=== PATIENT | female | born 1930 | race Caucasian/White ===

== ENCOUNTER 2017-04-05 21:41 | Emergency (ER) | payer MEDICARE ==
[~2017-04-05] VITALS: Ht 165.1 cm; Wt 60.0 kg
[~2017-04-05 21:41] MED LIST: ASPI325T PO; ATEN-100 PO; CALA240T PO; ZOFR4TAB3 PO
[2017-04-05 21:50] VITALS: BP 166/71; PULSE 62; RESP 20; TEMP 99.7; O2SAT 97
[2017-04-05] MEDS ORDERED: VERA80TA PO (22:12)
[2017-04-05] MEDS ORDERED: ATEN25TA PO (22:12)
[2017-04-05] MEDS ORDERED: MENE1.254 PO (22:12)
[2017-04-05] MEDS ORDERED: HYDR1CRE TOPICAL (22:14)
--- NOTE | 2017-04-05 22:24 | PD ---
HPI Chief Complaint: Respiratory Symptoms Time Seen by Provider: 22:10 Travel History International Travel<30 days: No Contact w/Intl Traveler<30days: No Traveled to known affect area: No History of Present Illness HPI The patient is an 86-year-old female that has a cough for 3 weeks. She was seen yesterday at the [facility] [place] and a chest x-ray apparently showed pneumonia according to the physician there. She comes with a note to please admit to the hospital for pneumonia. She denies any fever at home but does have a temperature of 99.7 here. She does not smoke. She comes from [place] and has no local primary care physician. PFSH Past Medical History Atrial Fibrillation: Yes Heart Rhythm Problems: Yes (TACHYCARDIA) Diminished Hearing: No Hypertension: Yes ?: Not Menopausal: Yes Past Surgical History Hysterectomy: Yes Other Surgery: Yes (RIGHT WRIST CYST REMOVED) Social History Alcohol Use: No Tobacco Use: No Substance Use: No Allergies-Medications (Allergen,Severity, Reaction): Coded Allergies: Influenza Virus Vaccines (Unverified Allergy, Severe, HIVES, 04/05/17) lansoprazole (Unverified Allergy, Severe, "SHUTS DOWN KINDEYS", 04/05/17) meperidine (Unverified Allergy, Severe, SYNCOPY, 04/05/17) penicillin G (Unverified Allergy, Severe, Anaphylaxis, 04/05/17) tetanus toxoid, adsorbed (Unverified Allergy, Severe, RESP DISTRESS, 04/05) Sulfa (Sulfonamide Antibiotics) (Unverified Allergy, Mild, 04/05/17) erythromycin base (Verified Allergy, Unknown, 04/05/17) morphine (Verified Allergy, Unknown, 04/05/17) nitroglycerin (Verified Allergy, Unknown, 04/05/17) prochlorperazine (Verified Allergy, Unknown, 04/05/17) tetanus immune globulin (Verified Allergy, Unknown, 04/05/17) Uncoded Allergies: EES (Adverse Reaction, Mild, 09/01/14) Reported Meds & Prescriptions Reported Meds & Active Scripts Active Reported Hydrocortisone Topical 1% Cream 1 Applic TOPICAL DIRECTED Menest (Estrogens, Esterified) 1.25 Mg Tab 1.25 Mg PO EVERY OTHER DAY Atenolol 25 Mg Tab 25 Mg PO BID Verapamil (Verapamil HCl) 80 Mg Tab 90 Mg PO TID Review of Systems Except as stated in HPI: all other systems reviewed are Neg Physical Exam Narrative GENERAL: The patient is alert, oriented 3 in no respiratory distress. Her vital signs show temperature of 99.7, blood pressure 166/71 but are otherwise normal. SKIN: Focused skin assessment warm/dry. HEAD: Atraumatic. Normocephalic. EYES: Pupils equal and round. No scleral icterus. No injection or drainage. ENT: No nasal bleeding or discharge. Mucous membranes pink and moist. NECK: Trachea midline. No JVD. CARDIOVASCULAR: Regular rate and rhythm. No murmur appreciated. RESPIRATORY: No accessory muscle use. Clear to auscultation. Breath sounds equal bilaterally. GASTROINTESTINAL: Abdomen soft, non-tender, nondistended. Hepatic and splenic margins not palpable. MUSCULOSKELETAL: No obvious deformities. No clubbing. No cyanosis. No edema. NEUROLOGICAL: Awake and alert. No obvious cranial nerve deficits. Motor grossly within normal limits. Normal speech. PSYCHIATRIC: Appropriate mood and affect; insight and judgment normal. Data Data Last Documented VS Vital Signs Date Time Temp Pulse Resp B/P (MAP) Pulse Ox O2 Delivery O2 Flow Rate FiO2 04/05/17 23:25 71 16 175/80 (111) 96 Room Air 04/05/17 21:50 99.7 Orders Orders Electrocardiogram (04/05/17 22:24) Complete Blood Count With Diff (04/05/17 22:24) Comprehensive Metabolic Panel (04/05/17 22:24) Influenzae A/B Antigen (04/05/17 22:24) Urinalysis - C+S If Indicated (04/05/17 22:24) Blood Culture (04/05/17 22:24) Chest, Pa & Lat (04/05/17 22:24) Sodium Chloride 0.9% Flush (Ns Flush) (04/05/17 22:30) Labs Laboratory Tests Test 04/05/17 22:38 04/05/17 23:17 White Blood Count 17.5 TH/MM3 Red Blood Count 3.87 MIL/MM3 Hemoglobin 11.8 GM/DL Hematocrit 35.7 % Mean Corpuscular Volume 92.1 FL Mean Corpuscular Hemoglobin 30.5 PG Mean Corpuscular Hemoglobin Concent 33.1 % Red Cell Distribution Width 12.5 % Platelet Count 358 TH/MM3 Mean Platelet Volume 7.2 FL Neutrophils (%) (Auto) 81.2 % Lymphocytes (%) (Auto) 7.7 % Monocytes (%) (Auto) 8.2 % Eosinophils (%) (Auto) 0.4 % Basophils (%) (Auto) 2.5 % Neutrophils # (Auto) 14.3 TH/MM3 Lymphocytes # (Auto) 1.3 TH/MM3 Monocytes # (Auto) 1.4 TH/MM3 Eosinophils # (Auto) 0.1 TH/MM3 Basophils # (Auto) 0.4 TH/MM3 CBC Comment AUTO DIFF Differential Comment AUTO DIFF CONFIRMED Platelet Estimate NORMAL Platelet Morphology Comment CLUMPED Red Cell Morphology Comment NORMAL Blood Urea Nitrogen 23 MG/DL Creatinine 1.10 MG/DL Random Glucose 128 MG/DL Total Protein 6.6 GM/DL Albumin 3.0 GM/DL Calcium Level 9.0 MG/DL Alkaline Phosphatase 214 U/L Aspartate Amino Transf (AST/SGOT) 57 U/L Alanine Aminotransferase (ALT/SGPT) 40 U/L Total Bilirubin 0.6 MG/DL Sodium Level 131 MEQ/L Potassium Level 4.2 MEQ/L Chloride Level 96 MEQ/L Carbon Dioxide Level 26.0 MEQ/L Anion Gap 9 MEQ/L Estimat Glomerular Filtration Rate 47 ML/MIN MDM Medical Decision Making Medical Screen Exam Complete: Yes Emergency Medical Condition: Yes Medical Record Reviewed: Yes Interpretation(s) The chest x-ray shows hyperinflation suggesting COPD but no acute infiltrate or effusion. The CBC shows a white count of 17,500 with 81% neutrophils but is otherwise normal. The influenza A/B antigen is negative for flu a and flu B antigen. The complete metabolic profile shows a BUN of 23, creatinine 1.1, GFR 47, albumin 3.0, alkaline phosphatase 214 with GOT of 57 and sodium 131 but is otherwise normal. Differential Diagnosis Pneumonia, bronchitis, viral upper respiratory infection, flu syndrome Narrative Course The patient has had a cough for 3 weeks. She has an elevated white count. I would like to try her on Zithromax. The patient was reluctant to take Zithromax even though she does not know what happens when she takes Zithromax. She even has Zithromax at home which was prescribed to her. She will be given Zithromax 250 mg for 5 days. She does not want a 500 mg or any tablet Zithromax now here in the emergency department. She is to follow-up with a primary care physician. If worse, she should return to emergency department. Diagnosis Primary Impression: Upper respiratory infection Additional Impression: Leukocytosis Med/Other Pt SpecificInfo: Prescription(s) given Scripts Azithromycin (Zithromax) 250 Mg Tab 250 MG PO DAILY for Infection for 5 Days, #5 TAB 0 Refills Prov: Jamshid Lipscomb MD 04/05/17 Disposition: 01 DISCHARGE HOME Condition: Stable Jamshid Lipscomb MD Apr 05, 2017 22:24
[2017-04-05] MEDS ORDERED: SODIUM CHLORIDE 0.9% FLUSH 10 ML FLUSH IVF PRN (22:30)
[2017-04-05 22:56] LABS: AUTOMATED NEUTROPHIL # 14.3 TH/MM3 (1.8-7.7); BASOPHIL # 0.4 TH/MM3 (0-0.2); BASOPHIL % 2.5 % (0.0-2.0); EOSINOPHIL # 0.1 TH/MM3 (0-0.4); EOSINOPHIL % 0.4 % (0.0-4.0); HEMATOCRIT 35.7 % (35.0-46.0); HEMOGLOBIN 11.8 GM/DL (11.6-15.3); LYMPH % 7.7 % (9.0-44.0); LYMPHOCYTE # 1.3 TH/MM3 (1.0-4.8); MEAN CELL VOLUME 92.1 FL (80.0-100.0); MEAN CORPUSCULAR HEMOGLOBIN 30.5 PG (27.0-34.0); MEAN CORPUSCULAR HGB CONC 33.1 % (32.0-36.0); MEAN PLATELET VOLUME 7.2 FL (7.0-11.0); MONO % 8.2 % (0.0-8.0); MONOCYTE # 1.4 TH/MM3 (0-0.9); NEUT % 81.2 % (16.0-70.0); PLATELET COUNT 358 TH/MM3 (150-450); RED BLOOD COUNT 3.87 MIL/MM3 (4.00-5.30); RED CELL DISTRIBUTION WIDTH 12.5 % (11.6-17.2); WHITE BLOOD COUNT 17.5 TH/MM3 (4.0-11.0)
[2017-04-05 23:08] LABS: CHLORIDE 96 MEQ/L (98-107); SODIUM (NA) 131 MEQ/L (136-145)
[2017-04-05 23:12] LABS: BLOOD UREA NITROGEN 23 MG/DL (7-18); GLUCOSE,RANDOM 128 MG/DL (74-106)
--- NOTE | 2017-04-05 23:12 | RADRPT ---
EXAM DATE/TIME: 04/05/2017 22:28 [facility] COMPARISON: No previous studies available for comparison. INDICATIONS : Cough. MEDICAL HISTORY : None. SURGICAL HISTORY : None. ENCOUNTER: Initial ACUITY: 3 weeks PAIN SCORE: 0/10 LOCATION: Bilateral chest FINDINGS: PA and lateral views of the chest demonstrate the lungs to be symmetrically aerated without evidence of mass, infiltrate or effusion. The lungs are hyperinflated bilaterally. Top normal heart size. Osse ous structures are intact. CONCLUSION: 1. Hyperinflation suggesting COPD. No acute infiltrate or effusion. Juan Akers Jr., MD on April 05, 2017 at 23:10 Board Certified Radiologist. This report was verified electronically.
[2017-04-05 23:15] LABS: ALT (GPT) 40 U/L (10-53); AST (GOT) 57 U/L (15-37); GLOMERULAR FILTRATION RATE 47 ML/MIN (>89)
[2017-04-05 23:16] LABS: TOTAL BILIRUBIN ADULT 0.6 MG/DL (0.2-1.0); TOTAL PROTEIN 6.6 GM/DL (6.4-8.2)
[2017-04-05 23:18] LABS: ALKALINE PHOSPHATASE 214 U/L (45-117)
[2017-04-05 23:25] VITALS: BP 175/80; PULSE 71; RESP 16; O2SAT 96
[2017-04-05 23:41] LABS: BLOOD, URINE NEG (NEG); GLUCOSE,URINE NEG (NEG); KETONE, URINE TRACE mg/dL (NEG); NITRITE,URINE NEG (NEG); PH, URINE 5.5 (5.0-8.5); URINE LEUKOCYTE ESTERASE NEG (NEG)
[2017-04-05 23:48] LABS: BILIRUBIN, URINE NEG (NEG)
[2017-04-05 23:49] LABS: HYALINE CAST, URINE 15-19 /lpf (RARE); MUCUS URINE FEW /lpf (OCC); URINE COLOR AMBER (YELLW/STRAW)
[2017-04-05 23:50] LABS: BACTERIA, URINE OCC /hpf; SQUAMOUS EPITHELIAL CELL URINE > 8 /hpf (0-5)
[2017-04-05 23:51] LABS: AMORPHOUS SEDIMENT, URINE SMALL; WBC, URINE 0-2 /hpf (0-5)
[2017-04-05] MEDS ORDERED: ZITH250T PO (23:51)
[2017-04-06 00:26] VITALS: BP 176/79
--- NOTE | 2017-04-06 09:14 | EKG ---
Date Performed: 04/05/2017 Time Performed: 22:32:32 PTAGE: 86 years EKG: SINUS BRADYCARDIA WITH FIRST DEGREE AV BLOCK MARKED LEFT AXIS DEVIATION POSSIBLE RIGHT VENT RICULAR CONDUCTION DELAY LEFT BUNDLE BRANCH BLOCK ABNORMAL ECG NO PREVIOUS TRACING DOCTOR: Elliot Ayala Interpretating Date/Time 04/06/2017 09:14:09
[2017-04-06] MEDS ORDERED: ZOFR4TAB PO (16:30)
== END 2017-04-06 00:30 | disposition home or self-care (01) ==
LOC: PHED 21:41
DX: J06.9 Acute upper respiratory infection, unspecified (principal); D72.829 Elevated white blood cell count, unspecified; R94.31 Abnormal electrocardiogram [ECG] [EKG]; I10 Essential (primary) hypertension; I48.91 Unspecified atrial fibrillation; Z88.0 Allergy status to penicillin
CPT/HCPCS: 71020; 80053; 81001; 85025; 87040; 87804; 93005; 99285

== ENCOUNTER 2017-04-06 15:47 | Emergency (ER) | payer MEDICARE ==
[~2017-04-06] VITALS: Ht 167.6 cm; Wt 60.9 kg
[~2017-04-06 15:47] MED LIST changes: -ASPI325T PO; -ATEN-100 PO; +ATEN25TA PO; -CALA240T PO; +HYDR1CRE TOPICAL; +MENE1.254 PO; +VERA80TA PO; +ZITH250T PO; -ZOFR4TAB3 PO
[2017-04-06 15:51] VITALS: PULSE 60; RESP 18; TEMP 98.4; O2SAT 98
[2017-04-06] MEDS ORDERED: DOXYCYCLINE HYCLATE 50 MG CAP PO ONE (16:15)
[2017-04-06] MEDS ORDERED: ONDANSETRON ODT 4 MG TAB PO ONE (16:15)
--- NOTE | 2017-04-06 16:26 | PD ---
HPI Chief Complaint: Respiratory Symptoms Time Seen by Provider: 16:02 Travel History International Travel<30 days: No Contact w/Intl Traveler<30days: No Traveled to known affect area: No History of Present Illness HPI The patient was seen and examined in the presence of the nurse. This patient complains of cough and congestion. She also has some nausea. She was seen here yesterday and diagnosed with bronchitis. She had a chest x-ray with no infiltrate. Severity is mild to moderate. She is very nervous and anxious. No alleviating factors. She wants a dose of anabiotic medication here to make sure she doesn't react to it. She did not fill the prescription she received yesterday. PFSH Past Medical History Hx Anticoagulant Therapy: Yes (BABY ASA DAILY) Atrial Fibrillation: Yes Heart Rhythm Problems: Yes (TACHYCARDIA) Cardiac Catheterization: Yes Cerebrovascular Accident: Yes (TIA'S HTN) Diabetes: No Diminished Hearing: No Hypertension: Yes Integumentary: Yes (Melanoma ) Immunizations Current: No ?: Not Menopausal: Yes Past Surgical History Appendectomy: Yes Hysterectomy: Yes Other Surgery: Yes (RIGHT WRIST CYST REMOVED) Social History Alcohol Use: No Tobacco Use: No Substance Use: No Allergies-Medications (Allergen,Severity, Reaction): Coded Allergies: Influenza Virus Vaccines (Unverified Allergy, Severe, HIVES, 04/06/17) lansoprazole (Unverified Allergy, Severe, "SHUTS DOWN KINDEYS", 04/06/17) meperidine (Unverified Allergy, Severe, SYNCOPY, 04/06/17) penicillin G (Unverified Allergy, Severe, Anaphylaxis, 04/06/17) tetanus toxoid, adsorbed (Unverified Allergy, Severe, RESP DISTRESS, ) Sulfa (Sulfonamide Antibiotics) (Unverified Allergy, Mild, 04/06/17) erythromycin base (Verified Allergy, Unknown, 04/06/17) morphine (Verified Allergy, Unknown, 04/06/17) nitroglycerin (Verified Allergy, Unknown, 04/06/17) prochlorperazine (Verified Allergy, Unknown, 04/06/17) tetanus immune globulin (Verified Allergy, Unknown, 04/06/17) Uncoded Allergies: EES (Adverse Reaction, Mild, 09/01/14) Reported Meds & Prescriptions Reported Meds & Active Scripts Active Zofran (Ondansetron HCl) 4 Mg Tab 4 Mg PO Q6HR PRN Zithromax (Azithromycin) 250 Mg Tab 250 Mg PO DAILY 5 Days Reported Hydrocortisone Topical 1% Cream 1 Applic TOPICAL DIRECTED Menest (Estrogens, Esterified) 1.25 Mg Tab 1.25 Mg PO EVERY OTHER DAY Atenolol 25 Mg Tab 25 Mg PO BID Verapamil (Verapamil HCl) 80 Mg Tab 90 Mg PO TID Review of Systems General / Constitutional: No: Fever HENT: No: Sore Throat Respiratory: Positive: Cough Gastrointestinal: Positive: Nausea Physical Exam Narrative RESPIRATORY: Respiratory effort unlabored, no retractions or use of accessory muscles. Breath sounds are clear and symmetric. CARDIOVASCULAR: Regular rate and rhythm without murmur. Extremities showed no edema or varicosities. Throat clear NECK: Symmetrical appearance, midline trachea. No mass or crepitus. Thyroid without enlargement, tenderness, or mass. Data Data Last Documented VS Vital Signs Date Time Temp Pulse Resp B/P (MAP) Pulse Ox O2 Delivery O2 Flow Rate FiO2 04/06/17 15:51 98.4 60 18 98 Orders Orders Doxycycline (Vibramycin) (04/06/17 16:15) Ondansetron Odt (Zofran Odt) (04/06/17 16:15) [facility] Medical Decision Making Medical Screen Exam Complete: Yes Emergency Medical Condition: Yes Medical Record Reviewed: Yes Differential Diagnosis Bronchitis, pneumonia, medication side effect Narrative Course I have reviewed the patient's electronic medical record. Reviewed her visit from yesterday including chest x-ray showing COPD changes I gave her dose of Zofran She received a prescription for Zithromax but reports allergy to erythromycin type of medications. To switch her to doxycycline Certainly not clearly is any bacterial involvement however I gave her half dose of doxycycline here at her request and will observe her for a while If she does well we'll prescribe doxycycline for one week and some Zofran Patient says she is allergic to doxycycline also. I don't think she needs antibiotics regardless. I wrote some Zofran prescription and she can discuss with her family physician. Diagnosis Primary Impression: Bronchitis Additional Instructions: The patient was advised to follow up with their physician and return if they worsen. Med/Other Pt SpecificInfo: Prescription(s) given Scripts Ondansetron (Zofran) 4 Mg Tab 4 MG PO Q6HR Y for NAUSEA OR VOMITING, #12 TAB 0 Refills Prov: Lorenzo Verdin MD 04/06/17 Disposition: 01 DISCHARGE HOME Condition: Stable Lorenzo Verdin MD Apr 06, 2017 16:26
[2017-04-06] MEDS ORDERED: ZOFR4TAB PO (16:30)
== END 2017-04-06 17:14 | disposition home or self-care (01) ==
LOC: PHED 15:47
DX: J40 Bronchitis, not specified as acute or chronic (principal); R11.0 Nausea; I10 Essential (primary) hypertension; I48.91 Unspecified atrial fibrillation; R00.0 Tachycardia, unspecified; Z79.82 Long term (current) use of aspirin; Z86.79 Personal history of other diseases of the circulatory system; Z85.828 Personal history of other malignant neoplasm of skin
CPT/HCPCS: 99283

== ENCOUNTER 2017-10-31 09:19 | Inpatient (IN) ==
[2017-10-31] MEDS ORDERED: Sod Chloride 0.9% Inj 1,000 ML IV.CONT SCH (09:30)
--- NOTE | 2017-10-31 09:34 | ED ---
HPI General Chief Complaint: Stroke Alert Stated Complaint: Poss Stroke Alert Time Seen by Provider: 10/31/17 09:22 Source: patient, family and EMS Mode of arrival: EMS Limitations: language barrier and altered mental status History of Present Illness HPI Narrative: 87-year-old female patient with history of atrial fibrillation currently on aspirin, previous TIAs, presents to the ER today brought in by EMS , apparently she was about to have breakfast with her son at around 8:40 AM started getting difficulty speaking, right-sided weakness, and is brought in by EMS as a stroke alert. Patient does complain of a headache, is not able to give me much further history due to the difficulty speaking. Related Data Allergies Allergy/AdvReac Type Severity Reaction Status Date / Time Influenza Virus Vaccines Allergy Severe HIVES Unverified 10/31/17 10:27 lansoprazole Allergy Severe "SHUTS Unverified 10/31/17 10:27 DOWN KINDEYS" meperidine Allergy Severe SYNCOPY Unverified 10/31/17 10:27 penicillin G Allergy Severe Anaphylaxis Unverified 10/31/17 10:27 tetanus toxoid, adsorbed Allergy Severe RESP Unverified 10/31/17 10:27 DISTRESS Sulfa (Sulfonamide Allergy Mild Nausea Unverified 10/31/17 10:27 Antibiotics) erythromycin base Allergy Unknown Nausea Verified 10/31/17 10:27 morphine Allergy Unknown Nausea Verified 10/31/17 10:27 nitroglycerin Allergy Unknown Nausea Verified 10/31/17 10:27 prochlorperazine Allergy Unknown Nausea Verified 10/31/17 10:27 tetanus immune globulin Allergy Unknown Nausea Verified 10/31/17 10:27 EES AdvReac Mild Nausea Uncoded 10/31/17 10:27 Review of Systems ROS Unobtainable unobtainable due to mental status PMFSH History History Provided By: Family Member and Sign Writer Hand / EMT Medical History Medical History Afib (Acute) TIA (transient ischemic attack) (Acute) Social History Social History Recent Travel in [facility] within the Last 8 Weeks: No Recent Out of Country Travel within the Last 8 Weeks: No Exam Narrative Exam Narrative: GENERAL: Well-developed elderly white female patient currently and moderate distress. Awake and alert, but aphasic, having difficulty speaking , follows some commands. SKIN: Focused skin assessment warm/dry. HEAD: Atraumatic. Normocephalic. EYES: Pupils equal and round. No scleral icterus. No injection or drainage. ENT: No nasal bleeding or discharge. Mucous membranes pink and moist. NECK: Trachea midline. No JVD. CARDIOVASCULAR: Irregularly irregular. RESPIRATORY: No accessory muscle use. Clear to auscultation. Breath sounds equal bilaterally. GASTROINTESTINAL: Abdomen soft, non-tender, nondistended. Hepatic and splenic margins not palpable. MUSCULOSKELETAL: No obvious deformities. No clubbing. No cyanosis. No edema. NEUROLOGICAL: Awake and alert. Right facial droop, unable to lift the right hand or right leg. PSYCHIATRIC: Appropriate mood and affect; insight and judgment normal. Course Hospital Course: CAT scan was negative for intracranial bleed. Case was discussed with Dr. Lozoya who came in to see the patient in the ER, talked to the patient's son, and agrees that the patient should be a TPA candidate. TPA was initiated in the ER. Patient's blood pressure was quite elevated as well on arrival and Cardene drip had been initiated to lower the blood pressure, I came down nicely and she was a candidate for TPA. Case was then discussed with Dr. Recio for admission to the critical care unit due to TPA. Initial Documented Vital Signs Pulse Rate 87 10/31/17 09:19 Respiratory Rate 20 10/31/17 09:19 Blood Pressure 227/106 H 10/31/17 09:19 Pulse Oximetry 98 10/31/17 09:19 Last Documented Vital Signs Pulse Rate 87 10/31/17 09:19 Respiratory Rate 18 10/31/17 09:19 Blood Pressure 131/60 10/31/17 10:26 Pulse Oximetry 96 10/31/17 10:40 Critical Care Time Critical Care Time: Yes Total Critical Care Time: 30 Attestation: Aggregate critical care time was 30 minutes. Time to perform other separately billable procedures was not included in the critical care time. My time did not include minutes spent treating any other patients simultaneously or on activities that did not directly contribute to the patient's treatment. The services I provided to this patient were to treat and/or prevent clinically significant deterioration that could result in: ICH, worsening stroke, , disability I provided critical care services requiring my management, as noted below: Chart data review, documentation time, medication orders and management, vital sign assessments/reviewing monitor data, ordering and reviewing lab tests, ordering and interpreting/reviewing x-rays and diagnostic studies, care of the patient and discussion of the patient with the admitting physicians. Medical Decision Making Differential Diagnosis Differential Diagnosis: Acute CVA versus ICH versus hypertensive emergency Lab Data Result diagrams: 10/31/17 09:44 10/31/17 09:25 Lab Results 10/31/17 10/31/17 10/31/17 Range/Units 09:25 09:25 09:25 WBC (4.0-11.0) th/mm3 RBC (4.00-5.30) mil/mm3 Hgb (11.6-15.3) gm/dL POC Hgb (Calc) 14.6 (11.6-15.3) g/dL Hct (35.0-46.0) % POC Hct 43.0 (35-46.0) % MCV (80.0-100.0) fL MCH (27.0-34.0) pg MCHC (32.0-36.0) % RDW (11.6-17.2) % Plt Count (150-450) th/mm3 MPV (7.0-11.0) fL Neut % (Auto) (16.0-70.0) % Lymph % (Auto) (9.0-44.0) % [place] % (Auto) (0.0-8.0) % Eos % (Auto) (0.0-4.0) % Baso % (Auto) (0.0-2.0) % Neut # (Auto) (1.8-7.7) th/mm3 Lymph # (Auto) (1.0-4.8) th/mm3 [place] # (Auto) (0.0-0.9) th/mm3 Eos # (Auto) (0.0-0.4) th/mm3 Baso # (Auto) (0.0-0.2) th/mm3 WBC Differential Differential Comment PT 10.6 (9.8-11.6) sec INR 1.0 Ratio APTT 25.3 (24.3-30.1) sec POC Sodium 136 L (137-144) mmol/L Sodium 138 (136-145) meq/L POC Potassium 4.3 (3.6-5.0) mmol/L Potassium 4.3 (3.5-5.1) meq/L POC Chloride 101 L (102-111) mmol/L Chloride 104 (98-107) meq/L Carbon Dioxide 27.1 (21.0-32.0) meq/L Anion Gap 7 (5-15) meq/L POC BUN 14 (5-21) mg/dL BUN 14 (7-18) mg/dL Creatinine 0.94 (0.50-1.00) mg/dL POC Creatinine 0.9 (0.6-1.3) mg/dL Estimated GFR 56 L (>89) mL/min POC Glucose 118 H (68-110) mg/dL Random Glucose 120 H (74-106) mg/dL Calcium 9.0 (8.5-10.1) mg/dL Total Creatine Kinase 38 (26-192) U/L Troponin I 0.08 H (0.02-0.05) ng/mL 10/31/17 Range/Units 09:44 WBC 9.5 (4.0-11.0) th/mm3 RBC 4.39 (4.00-5.30) mil/mm3 Hgb 14.7 (11.6-15.3) gm/dL POC Hgb (Calc) (11.6-15.3) g/dL Hct 41.1 (35.0-46.0) % POC Hct (35-46.0) % MCV 93.6 (80.0-100.0) fL MCH 33.5 (27.0-34.0) pg MCHC 35.7 (32.0-36.0) % RDW 14.0 (11.6-17.2) % Plt Count 311 (150-450) th/mm3 MPV 7.0 (7.0-11.0) fL Neut % (Auto) 72.9 H (16.0-70.0) % Lymph % (Auto) 19.1 (9.0-44.0) % [place] % (Auto) 5.1 (0.0-8.0) % Eos % (Auto) 2.1 (0.0-4.0) % Baso % (Auto) 0.8 (0.0-2.0) % Neut # (Auto) 6.9 (1.8-7.7) th/mm3 Lymph # (Auto) 1.8 (1.0-4.8) th/mm3 [place] # (Auto) 0.5 (0.0-0.9) th/mm3 Eos # (Auto) 0.2 (0.0-0.4) th/mm3 Baso # (Auto) 0.1 (0.0-0.2) th/mm3 WBC Differential . Differential Comment Auto diff final PT (9.8-11.6) sec INR Ratio APTT (24.3-30.1) sec POC Sodium (137-144) mmol/L Sodium (136-145) meq/L POC Potassium (3.6-5.0) mmol/L Potassium (3.5-5.1) meq/L POC Chloride (102-111) mmol/L Chloride (98-107) meq/L Carbon Dioxide (21.0-32.0) meq/L Anion Gap (5-15) meq/L POC BUN (5-21) mg/dL BUN (7-18) mg/dL Creatinine (0.50-1.00) mg/dL POC Creatinine (0.6-1.3) mg/dL Estimated GFR (>89) mL/min POC Glucose (68-110) mg/dL Random Glucose (74-106) mg/dL Calcium (8.5-10.1) mg/dL Total Creatine Kinase (26-192) U/L Troponin I (0.02-0.05) ng/mL Imaging Data Radiologist's impression: Chest X-Ray 10/31/17 09:22 CONCLUSION: No acute cardiopulmonary disease. Head CT 10/31/17 09:22 CONCLUSION: Chronic small vessel ischemic and atrophic changes. Report was called by myself to Dr. Bautista Lozoya at 9:38 hours.] Neck CTA 10/31/17 09:22 CONCLUSION: 1. Significant atherosclerotic plaquing involving the aorta and origin of bilateral internal carotid arteries with soft plaque involving the origin of the left internal coronary artery and no significant stenosis. Discharge Plan Discharge Disposition Patient Disposition: 30 Still Patient Discharge Condition Condition: Critical Discharge Details Anticipated Discharge Date: 10/31/17 Diagnosis: Acute ischemic stroke, Received intravenous tissue plasminogen activator (t-PA ) in emergency department Physicians Team ED Provider: Allen Tapia Primary Care Provider: UNKNOWN, Discharge Interventions Interventions: Vital Signs Last Done: 10/31/17 10:26 Status ED Status: With Doctor
[2017-10-31] MEDS: niCARdipine Inj 25 MG in Sodium Chlor 0.9% Inj 240 ML IV.CONT PRN ×5 (09:37→22:37)
--- NOTE | 2017-10-31 09:44 | CT ---
EXAM DATE: 10/31/2017 9:39 AM EDT AGE/SEX: 87 years / Female INDICATIONS: Stroke alert; right side weakness, altered mental status. CLINICAL DATA: This is the patient's initial encounter. Patient reports that signs and symptoms have been present for 1 day and indicates a pain score of Nonresponsive. MEDICAL/SURGICAL HISTORY: Non-responsive. Non-responsive. RADIATION DOSE: 56.35 CTDI (mGy) COMPARISON: No prior exams available for comparison. TECHNIQUE: CT of the head without contrast. Using automated exposure control and adjustment of the mA and/or kV according to patient size, radiation dose was kept as low as reasonably achievable to ob tain optimal diagnostic quality images. DICOM format image data is available electronically for revi ew and comparison. FINDINGS: There is no evidence for intracranial hemorrhage, mass effect, mass lesions, or edema. The visualize d bony structures appear intact. Moderate degree of brain atrophy is seen. Moderate periventricular white matter changes are seen nonspecific mostly consistent with chronic small vessel ischemic change s. There are no signs of acute infarction for technique. There is an area of lucency in the right po sterior parietal lobe probably an old area of encephalomalacia. Underlying mass is not suspected at t his site, however not completely excluded. There is also old lacunar infarction in left mesial tempor al lobe versus prominent Virchow-Shahram space. CONCLUSION: Chronic small vessel ischemic and atrophic changes. Report was called by myself to Dr. Bautista Lozoya at 9:38 hours.] Electronically signed by: Bing Dinero MD 10/31/2017 9:42 AM EDT
[2017-10-31 09:47] LABS: Baso # (Auto) 0.1 th/mm3 (0.0-0.2); Baso % (Auto) 0.8 % (0.0-2.0); Eos # (Auto) 0.2 th/mm3 (0.0-0.4); Eos % (Auto) 2.1 % (0.0-4.0); Hematocrit 41.1 % (35.0-46.0); Hemoglobin 14.7 gm/dL (11.6-15.3); Lymph # (Auto) 1.8 th/mm3 (1.0-4.8); Lymph % (Auto) 19.1 % (9.0-44.0); Mean Corpuscular HGB Conc 35.7 % (32.0-36.0); Mean Corpuscular Hemoglobin 33.5 pg (27.0-34.0); Mean Corpuscular Volume 93.6 fL (80.0-100.0); Mono # (Auto) 0.5 th/mm3 (0.0-0.9); Mono % (Auto) 5.1 % (0.0-8.0); Neut # (Auto) 6.9 th/mm3 (1.8-7.7); Neut % (Auto) 72.9 % (16.0-70.0); Platelet Count 311 th/mm3 (150-450); Red Blood Count 4.39 mil/mm3 (4.00-5.30); White Blood Count 9.5 th/mm3 (4.0-11.0)
[2017-10-31 09:52] LABS: Activated Partial Thrombo Time 25.3 sec (24.3-30.1); Prothrombin Time 10.6 sec (9.8-11.6)
[2017-10-31] MEDS ORDERED: ALTEPLASE DRIP IV.SIG ONE (09:53)
[2017-10-31] MEDS ORDERED: Alteplase Bolus 9 MG/9 ML Syringe IV.PUSH ONE (09:53)
[2017-10-31 09:56] LABS: Carbon Dioxide 27.1 meq/L (21.0-32.0); Potassium 4.3 meq/L (3.5-5.1)
[2017-10-31 10:00] LABS: Troponin I 0.08 ng/mL (0.02-0.05)
--- NOTE | 2017-10-31 10:01 | CT ---
EXAM DATE: 10/31/2017 9:52 AM EDT AGE/SEX: 87 years / Female INDICATIONS: Stroke alert; right side weakness and altered mental status. CLINICAL DATA: This is the patient's initial encounter. Patient reports that signs and symptoms have been present for 1 day and indicates a pain score of Nonresponsive. MEDICAL/SURGICAL HISTORY: Non-responsive. Non-responsive. RADIATION DOSE: 8.83 CTDI (mGy) ; Combined studies COMPARISON: [facility] [place] HEAD W/O CONTRAST, 10/31/2017. . TECHNIQUE: Volumetric scanning was performed using a multi-row detector CT scanner during bolus infu susan of 100 ml Omnipaque 350 (iohexol) nonionic water-soluble contrast as a cumulative dose for [facility] [place] exams. The data was post processed with a variety of visualization algorithms including full v olume maximum intensity projection, multi-planar sliding thin slab reformation, curved planar reforma tion, and surface rendering techniques. Using automated exposure control and adjustment of the mA an d/or kV according to patient size, radiation dose was kept as low as reasonably achievable to obtain optimal diagnostic quality images. DICOM format image data is available electronically for review an d comparison. FINDINGS: There are chronic atherosclerotic changes involving multiple branches bilaterally including posterior circulation. There is no evidence for aneurysm or vascular malformation. No definite vessel truncati on or filling defect is seen. The area of encephalomalacia seen on the patient's CT examination in ri t posterior parietal lobe does not demonstrate any abnormal enhancement based on this examination p robable old encephalomalacia. Conclusion:Chronic atherosclerotic disease without evidence of truncation or definite filling defects . Electronically signed by: Bing Dinero MD 10/31/2017 10:00 AM EDT
--- NOTE | 2017-10-31 10:11 | MB ---
cc: Bautista Lozoya MD DATE: 10/31/2017 HISTORY OF PRESENT ILLNESS: This is an 86-year-old woman with a history of tachycardia, TIA, hypertension, melanoma, apparently fibrillation according to the ER doctor. She takes an aspirin a day and about 8:30 this morning, she was sitting, eating with her son when the history we get is that she suddenly could not talk and not moving the right side. MEDICATIONS: In the past she has been on estrogen, atenolol, verapamil. ALLERGIES: LANSOPRAZOLE, MEPERIDINE, PENICILLIN, SULFA, ERYTHROMYCIN, MORPHINE, PROCHLORPERAZINE, NITROGLYCERIN. PHYSICAL EXAMINATION: VITAL SIGNS: Initially her blood pressure was elevated, 238/118 now. NECK: There are no carotid bruits. HEART: Regular rhythm. I did not detect a murmur. NEUROLOGIC: She appears not to see well to the right. She has got a right facial droop. She is moving the left side well, but the right side she is 0/5. Toes are equivocal. She can mumble and moan ,but not speaking. IMAGING STUDIES: CAT scan shows some bilateral old basal ganglionic infarcts and what appears to be probably an old stroke in the right parieto-occipital region, though I cannot say for sure if it could not be a mass. Await the official results from the radiologist. We could do a CT with contrast of the brain I guess. We will see that as we go through the CTA maybe to see if that is a tumor or an old stroke; that would be the question. 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 RECOMMENDATIONS: What I have recommended is to give IV TPA. I did talk with Dr. Dinero about the results of the CT and he does not feel that the right parietal region is a tumor, he thinks more of an old stroke. A CTA is being done currently. We will try to get the blood pressure down immediately. Bautista Lozoya MD DJM/KD , 09:42 AM , 09:49 AM
--- NOTE | 2017-10-31 10:17 | CT ---
EXAM DATE: 10/31/2017 10:08 AM EDT AGE/SEX: 87 years / Female INDICATIONS: Stroke alert; right sided weakness, altered mental status. CLINICAL DATA: This is the patient's initial encounter. Patient reports that signs and symptoms have been present for 1 day and indicates a pain score of Nonresponsive. MEDICAL/SURGICAL HISTORY: Non-responsive. Non-responsive. RADIATION DOSE: 8.83 CTDI (mGy) ; Combined studies COMPARISON: No prior exams available for comparison. TECHNIQUE: Volumetric scanning was performed using a multirow detector CT scanner during bolus infus ion of 100 ml Omnipaque 350 (iohexol) nonionic water-soluble contrast as a cumulative dose for multi ple exams. The data was postprocessed with a variety of visualization algorithms including full-vol ume maximum intensity projection, multiplanar sliding thin-slab reformation, curved-planar reformatio n, and surface-rendering techniques. Using automated exposure control and adjustment of the mA and/o r kV according to patient size, radiation dose was kept as low as reasonably achievable to obtain opt imal diagnostic quality images. DICOM format image data is available electronically for review and c omparison. Percent stenosis is calculated using the diameter of the stenotic region over the diameter of the nor mal distal internal carotid artery. FINDINGS: There is extensive atherosclerotic plaquing at the origin of the major vessels from the arch. No sign ificant stenosis is identified. There is extensive extrinsic plaquing involving the origin of the rig ht internal carotid artery extending to proximal ICA without any significant stenosis and maximum swati nosis is on the order of 25-30%. There is also moderate degree of atherosclerotic plaquing involving the left ICA with soft plaque at this site and no significant stenosis. Maximum area of narrowing is on the order of 20-25%. CONCLUSION: 1. Significant atherosclerotic plaquing involving the aorta and origin of bilateral internal carotid arteries with soft plaque involving the origin of the left internal coronary artery and no significa nt stenosis. Electronically signed by: Bing Dinero MD 10/31/2017 10:16 AM EDT
--- NOTE | 2017-10-31 10:20 | XR ---
EXAM DATE: 10/31/2017 10:06 AM EDT AGE/SEX: 87 years / Female INDICATIONS: Stroke Alert CLINICAL DATA: This is the patient's initial encounter. Patient reports that signs and symptoms have been present for 1 day and indicates a pain score of Nonresponsive. MEDICAL/SURGICAL HISTORY: Non-responsive. Non-responsive. COMPARISON: [facility], CHEST PA & LAT, 04/05/2017. . FINDINGS: The lungs are clear without infiltrate, nodule, or mass. There is no appreciable pleural effusion for technique. Heart and mediastinum are unremarkable. CONCLUSION: No acute cardiopulmonary disease. Electronically signed by: Bing Dinero MD 10/31/2017 10:19 AM EDT
[2017-10-31] MEDS ORDERED: Acetaminophen 325 MG Tablet PO PRN (10:47)
[2017-10-31] MEDS ORDERED: Bisacodyl 10 MG Supp RECTAL PRN (10:47)
[2017-10-31] MEDS: Sod Chloride 0.9% Inj 1,000 ML IV.CONT SCH (11:11)
[2017-10-31 11:13] LABS: Bilirubin,Urine Negative (Negative); Clarity,Urine Clear (Clear); Color,Urine Yellow (Yellw/Straw); Glucose,Urine (UA) Negative (Negative); Leukocyte Esterase,Urine Negative (Negative); Nitrite,Urine Negative (Negative); Specific Gravity,Urine 1.049 (1.002-1.035); Squamous Epithelial Cell,Urine <1 /hpf (0-5)
--- NOTE | 2017-10-31 13:25 | MB ---
cc: Bautista Lozoya MD DATE: 10/31/2017 ADDENDUM Her current NIH stroke scale is an 18. A CTA, preliminary, did not show any major vessel occlusion. Bautista Shetty. MD AYANA Lozoya/kajal/ramonita , 09:49 AM , 09:54 AM
--- NOTE | 2017-10-31 13:48 | P.HPCC ---
History of Present Illness Primary Care Physician: UNKNOWN Chief Complaint: Slurred speech, weak right side History of Present Illness: This otherwise healthy 87-year-old woman developed difficulty with speech and a weak right side while eating breakfast this morning. She was brought to the emergency department where she ruled in as a stroke alert and after evaluation by Dr. Lozoya from neurology she received TPA. In the emergency department her right sided deficit was quite dense and her speech difficulties were pronounced. Both difficulties improved modestly at first and at that point she has been transported to the [facility]. Blood pressure control has been obtained with intravenous Cardene infusion. She developed some gastric retching and a worse headache, MRI and repeat CT indicate an area of possible bleeding posteriorly in the parietal region however the woman remains clearly improved from prior to the TPA. Her speech and administrative receptionist are near normal, hampered only by her difficulty hearing. She has a good sense of humor and asks appropriate questions. She can raise her right arm above gravity but the hand grasp remains weak. The patient has expressed quite clearly to me that she would not want any therapy that would involve ventilators or surgery. Although she is doing well at this time she would like us to continue full care but she prefers to be DNR status. - Diagnosis (1) Hypertensive crisis (2) Atrial fibrillation, permanent (3) Acute ischemic stroke (4) Received intravenous tissue plasminogen activator (t-PA) in emergency department Inpatient Certification: I certify that the inpatient services were ordered in accordance with Medicare regulations governing the order. This includes certification that hospital inpatient services are reasonable and necessary and in the case of services not specified as inpatient-only under 42 CFR 419.22(n), that they are appropriately provided as inpatient services in accordance to with the 2-midnight benchmark under 43 CFR 412.3(e) Estimated Total Length of Stay (Days): 3 Plans for Post Hospital Care: Not yet determined PMFSH - History History Provided By: Family Member - Medical History Medical History: Medical History (Last Reviewed 10/31/17 @ 14:43 by Elma Mcmahan) Afib Brain aneurysm Heart murmur Hypertension Stroke TIA (transient ischemic attack) - Tobacco History Second Hand Smoke Exposure: No Tobacco Use In Past 30 Days: No Smoking Status: Never smoker Tobacco Type: Cigarettes - Alcohol History How Often Do You Have a Drink Containing Alcohol: Never - Substance Use History Substance History: No History of Abuse - Travel History Recent Travel in the [place] Within the Last 8 Weeks: No Recent Travel Out of the Country Within the Last 8 Weeks: No - Immunization History Hx Influenza Vaccine This Season: No Medications and Allergies Active Medications: Active Medications Acetaminophen (Tylenol) 650 mg PO Q6H PRN PRN Reason: PAIN 1-10 AND/OR FEVER >101F Al Hydroxide/Mg Hydroxide (Milk Of Magnesia Liq) 30 ml PO Q12H PRN PRN Reason: Mild Constipation Bisacodyl (Dulcolax Supp) 10 mg RECTAL DAILY PRN PRN Reason: SEVERE CONSITIPATION Chlorhexidine Gluconate (Chlorhexidine 2% Cloth) 3 pack TOPICAL DAILY@0400 ARTUR Stop: 11/06/17 03:59 Chlorhexidine Gluconate (Chlorhexidine 2% Cloth) 3 pack TOPICAL DAILY@0400 PRN PRN Reason: Extra cloth needed Stop: 11/06/17 03:59 Famotidine (Pepcid) 10 mg PO BID [facility] Nicardipine HCl 25 mg/ Sodium (Chloride) 250 mls @ 50 mls/hr IV.CONT TITRATE PRN; Protocol PRN Reason: Per Protocol Last Titration: 10/31/17 12:45 Dose: 5 mg/hr, 50 mls/hr Sodium Chloride (Ns Inj) 1,000 mls @ 84 mls/hr IV.CONT .[id number] [facility] Last Admin: 10/31/17 11:11 Dose: 84 mls/hr Lactulose (Lactulose Liq) 30 ml PO DAILY PRN PRN Reason: SEVERE CONSITIPATION Miscellaneous (Pill Splitter) 1 each OTHER UNSCH PRN PRN Reason: SEE LABEL COMMENTS Ondansetron HCl (Zofran Odt) 4 mg PO Q6H PRN PRN Reason: NAUSEA OR VOMITING Senna/Docusate Sodium (Juany-Colace) 1 tab PO BID [facility] Sennosides (Senokot) 17.2 mg PO Q12H PRN PRN Reason: Moderate Constipation Sodium Chloride (Ns Flush) 2 ml IV.FLUSH BID [facility] Sodium Chloride (Ns Flush) 2 ml IV.FLUSH UNSCH PRN PRN Reason: FLUSH AFTER USING IV ACCESS Allergies Allergy/AdvReac Type Severity Reaction Status Date / Time Influenza Virus Vaccines Allergy Severe HIVES Unverified 10/31/17 10:27 lansoprazole Allergy Severe "SHUTS Unverified 10/31/17 10:27 DOWN KINDEYS" meperidine Allergy Severe SYNCOPY Unverified 10/31/17 10:27 penicillin G Allergy Severe Anaphylaxis Unverified 10/31/17 10:27 tetanus toxoid, adsorbed Allergy Severe RESP Unverified 10/31/17 10:27 DISTRESS Sulfa (Sulfonamide Allergy Mild Nausea Unverified 10/31/17 10:27 Antibiotics) erythromycin base Allergy Unknown Nausea Verified 10/31/17 10:27 morphine Allergy Unknown Nausea Verified 10/31/17 10:27 nitroglycerin Allergy Unknown Nausea Verified 10/31/17 10:27 prochlorperazine Allergy Unknown Nausea Verified 10/31/17 10:27 tetanus immune globulin Allergy Unknown Nausea Verified 10/31/17 10:27 EES AdvReac Mild Nausea Uncoded 10/31/17 10:27 Results - Labs CBC & Chem 7: 10/31/17 09:44 10/31/17 09:25 Labs: Short CBC 10/31/17 Range/Units 09:44 WBC 9.5 (4.0-11.0) th/mm3 Hgb 14.7 (11.6-15.3) gm/dL Hct 41.1 (35.0-46.0) % Plt Count 311 (150-450) th/mm3 BMP 10/31/17 09:25 Sodium 138 Potassium 4.3 Chloride 104 Carbon Dioxide 27.1 BUN 14 Creatinine 0.94 Calcium 9.0 Cardiac Enzymes 10/31/17 Range/Units 09:25 Total Creatine Kinase 38 (26-192) U/L Troponin I 0.08 H (0.02-0.05) ng/mL Urine 10/31/17 Range/Units 10:08 Urine Color Yellow (Yellw/Straw) Urine Clarity Clear (Clear) Urine pH 7.0 (5.0-8.5) Ur Specific [place] 1.049 H (1.002-1.035) Urine Protein Negative (Neg-Trace) mg/dL Urine Glucose (UA) Negative (Negative) mg/dL - Imaging Impressions Chest X-Ray 10/31/17 09:22 CONCLUSION: No acute cardiopulmonary disease. Head CT 10/31/17 09:22 CONCLUSION: Chronic small vessel ischemic and atrophic changes. Report was called by myself to Dr. Bautista Lozoya at 9:38 hours.] Neck CTA 10/31/17 09:22 CONCLUSION: 1. Significant atherosclerotic plaquing involving the aorta and origin of bilateral internal carotid arteries with soft plaque involving the origin of the left internal coronary artery and no significant stenosis. Exam Vital signs: Vital Signs 10/31/17 09:19 10/31/17 09:28 10/31/17 09:35 Pulse Rate 87 Respiratory Rate 18 Blood Pressure 227/106 H 238/118 H Pulse Oximetry 98 98 10/31/17 09:39 10/31/17 10:11 10/31/17 10:26 Pulse Rate Respiratory Rate Blood Pressure 227/103 H 169/68 H 131/60 Pulse Oximetry 10/31/17 10:40 10/31/17 10:59 Pulse Rate 74 Respiratory Rate 18 Blood Pressure 169/81 H Pulse Oximetry 96 98 Intake & Output 10/30/17 10/31/17 10/31/17 18:59 06:59 18:59 Intake Total 100 / 100 Balance 100 / 100 Weight 62.3 kg Intake: IV 100 / 100 Cardene Inj 25 MG In NS Inj 240 100 / 100 ML @ 5 MG/HR 50 mls/hr IV.CONT TITRATE PRN Rx#:[id number] Other: Weight On Admission 62.3 kg Narrative: Physical: Head: Atraumatic and normal. Neck: Supple, airway widely patent, no problems swallowing secretions. Lungs: Clear bilaterally without wheezes or crackles, comfortable respiratory pattern. Heart: Irregular regular rhythm rate controlled no jugular venous distention. Abdomen: Soft, nondistended, no guarding, bowel sounds present. Extremities: Warm, well-perfused Neuro: Pupils reactive to light. Patient tracks with eyes. Right arm and leg considerably reduced motor strength. Expressive aphasia. Caprini VTE Risk Assessment Caprini VTE Risk Assessment: Moderate/High Risk (score >= 2) VTE Pharmacological Exception Reason: High risk for bleeding Caprini Risk Assessment Model: Point Value = 1 Point Value = 2 Point Value = 3 Point Value = 5 Age 41-60 Minor surgery BMI > 25 kg/m2 Swollen legs Varicose veins or History of unexplained or recurrent spontaneous Oral contraceptives or hormone replacement Sepsis (< 1 month) Serious lung disease, including pneumonia (< 1 month) Abnormal pulmonary function Acute myocardial infarction Congestive heart failure (< 1 month) History of inflammatory bowel disease Medical patient at bed rest Age 61-74 Arthroscopic surgery Major open surgery (> 45 min) Laparoscopic surgery (> 45 min) Malignancy Confined to bed (> 72 hours) Immobilizing plaster cast Central venous access Age >= 75 History of VTE Family history of VTE Factor V Leiden Prothrombin [id number] Lupus anticoagulant Anticardiolipin antibodies Elevated serum homocysteine Heparin-induced thrombocytopenia Other congenital or acquired thrombophilia Stroke (< 1 month) Elective arthroplasty Hip, pelvis, or leg fracture Acute spinal cord injury (< 1 month) Prophylaxis Regimen: Total Risk Factor Score Risk Level Prophylaxis Regimen 0-1 Low Early ambulation 2 Moderate Order ONE of the following: *Sequential Compression Device (SCD) *Heparin 5000 units SQ BID 3-4 Higher Order ONE of the following medications: *Heparin 5000 units SQ TID *Enoxaparin/Lovenox 40 mg SQ daily (WT < 150 kg, CrCl > 30 mL/min) *Enoxaparin/Lovenox 30 mg SQ daily (WT < 150 kg, CrCl > 10-29 mL/min) *Enoxaparin/Lovenox 30 mg SQ BID (WT < 150 kg, CrCl > 30 mL/min) AND/OR *Sequential Compression Device (SCD) 5 or more Highest Order ONE of the following medications: *Heparin 5000 units SQ TID (Preferred with Epidurals) *Enoxaparin/Lovenox 40 mg SQ daily (WT < 150 kg, CrCl > 30 mL/min) *Enoxaparin/Lovenox 30 mg SQ daily (WT < 150 kg, CrCl > 10-29 mL/min) *Enoxaparin/Lovenox 30 mg SQ BID (WT < 150 kg, CrCl > 30 mL/min) AND *Sequential Compression Device (SCD) Assessment and Plan - Problem List (1) Hypertensive crisis Code(s): I16.9 - Hypertensive crisis, unspecified Status: Acute (2) Atrial fibrillation, permanent Code(s): I48.2 - Chronic atrial fibrillation Status: Acute (3) Acute ischemic stroke Code(s): I63.9 - Cerebral infarction, unspecified Status: Acute (4) Received intravenous tissue plasminogen activator (t-PA) in emergency department Code(s): Z92.82 - Status post administration of tPA (rtPA) in a different facility within the last 24 hours prior to admission to current facility Status: Acute - Assessment and Plan Plan: Plan: -TPA order set. -Maintain arterial blood pressure less than 140/90. -Bedrest. -Bedside swallow evaluation. -PT and OT evaluation and treatment -Cardene infusion to maintain blood pressure, convert to oral medication -Repeat head CT after 24 hours or sooner for any neuro -SCDs for DVT prophylaxis. -Pepcid for GI ulcer prophylaxis. -Neurochecks. Overall impression: This woman has developed an acute ischemic stroke involving the left hemisphere. She has improved modestly after TPA infusion. It is early yet and we anticipate further improvement. She has stable respiratory function and her hemodynamics are good, well controlled on Cardene infusion. H&P: Quality - VTE Deep Vein Thrombosis/Pulmonary Embolism Present on Admission: No
--- NOTE | 2017-10-31 14:48 | MR ---
EXAM DATE: 10/31/2017 2:26 PM EDT AGE/SEX: 87 years / Female INDICATIONS: Right sided weakness. CLINICAL DATA: This is the patient's initial encounter. Patient reports that signs and symptoms have been present for 1 day and indicates a pain score of 0/10. MEDICAL/SURGICAL HISTORY: Hypertension. Aneurysm, intracranial. CVA. None. COMPARISON: No prior exams available for comparison. TECHNIQUE: Multiplanar, multisequence examination of the brain was performed without and with 6 ml Ga davist (gadobutrol) contrast as a single exam dose. FINDINGS: There is an area of abnormal bright signal on T2 sequence involving the right frontal lobe and right posterior parietal lobe. There is gyral enhancement on the postcontrast portion of both of these area s without a definable mass. There is bright signal on the diffusion portion and part of it is due to shine through, however part of it demonstrates restriction in diffusion capacity probably representin g possibly acute infarction as well in the right posterior parietal region. The appearance is mostly consistent with subacute infarction with luxury perfusion and laminar necrosis possibly superimposed acute infarction. On the gradient sequence there are areas of dark signal may represent hemorrhage in the region of the right posterior frontal lobe has some scattered areas in left posterior temporal a nd right periventricular parietal regions. CONCLUSION: 1. Findings are mostly consistent with subacute laminar necrosis of right frontal lobe and posterior parietal lobe with possible areas of superimposed acute infarction in the right posterior parietal l obe manifested as restriction diffusion capacity. 2. Tiny enhancing nodule right periventricular region 4 mm in size possibly an area of subacute lacu murray infarction and should be followed. 3. Possibility of hemorrhage should be entertained as described above particularly in the right post erior parietal infarction. Findings were discussed with Dr. Lozoya at the time of this dictation. Electronically signed by: Bing Dinero MD 10/31/2017 2:47 PM EDT
[2017-10-31] MEDS ORDERED: Gadobutrol PF 7.5 MMOL/7.5 ML Vial (for RAD) IV.SIG ONE (14:52)
--- NOTE | 2017-10-31 17:04 | CT ---
EXAM DATE: 10/31/2017 4:22 PM EDT AGE/SEX: 87 years / Female INDICATIONS: Abnormal MRI. Status post TPA. CLINICAL DATA: This is the patient's initial encounter. Patient reports that signs and symptoms have been present for 1 day and indicates a pain score of Nonresponsive. MEDICAL/SURGICAL HISTORY: Stroke. Non-responsive. RADIATION DOSE: 34.29 CTDI (mGy) COMPARISON: [facility] [place] CTA HEAD W CONTRAST W 3D, 10/31/2017. . TECHNIQUE: CT of the head without contrast. Using automated exposure control and adjustment of the mA and/or kV according to patient size, radiation dose was kept as low as reasonably achievable to ob tain optimal diagnostic quality images. DICOM format image data is available electronically for revi ew and comparison. FINDINGS: There is an area of increased density in the right posterior parietal lobe corresponding to area of laminar necrosis on the patient's prior MRI manifested as increased density along the frausto-w jeaneth junction diffusely. The patient had CT angiogram of [place] earlier the same day and pa rt of this could be due to retained contrast, however the density is more than expected and therefore hemorrhage at this site could be entertained corresponds to the area of dark signal on susceptibilit y weighted imaging on the patient's MRI. The other areas of dark signal are not clearly identified as areas of hemorrhage on CT still concerning for punctate areas of hemorrhage on the patient's MRI. Th ere is no mass effect. CONCLUSION: 1. Increased density seen in the right posterior parietal lobe area of infarction corresponding to a rajwinder of dark signal on the patient's prior MRI susceptibility weighted imaging. Possibility of hemorrh age is highly suspected at this site. . Electronically signed by: Bing Dinero MD 10/31/2017 5:03 PM EDT
[2017-10-31] MEDS: Famotidine 20 MG Tablet PO SCH (21:50)
[2017-10-31] MEDS: Senna/Docusate Sodium 8.6/50 MG Tablet PO SCH (21:51)
[2017-11-01] MEDS: niCARdipine Inj 25 MG in Sodium Chlor 0.9% Inj 240 ML IV.CONT PRN ×5 (00:20→15:30)
[2017-11-01] MEDS ORDERED: Chlorhexidine Gluconate 2% 1 Pack (2 Cloths) TOPICAL PRN (04:00)
--- NOTE | 2017-11-01 05:58 | CT ---
EXAM DATE: 11/01/2017 5:34 AM EDT AGE/SEX: 87 years / Female INDICATIONS: Follow up stroke. CLINICAL DATA: This is the patient's subsequent encounter. Patient reports that signs and symptoms h ave been present for 1 day and indicates a pain score of Nonresponsive. MEDICAL/SURGICAL HISTORY: Non-responsive. Non-responsive. RADIATION DOSE: 38.45 CTDI (mGy) COMPARISON: [facility] – [place], [place] HEAD W & W/O CONTRAST, 10/31/2017. . TECHNIQUE: CT of the head without contrast. Using automated exposure control and adjustment of the mA and/or kV according to patient size, radiation dose was kept as low as reasonably achievable to ob tain optimal diagnostic quality images. DICOM format image data is available electronically for revi ew and comparison. FINDINGS: Stable appearance of increased density in the right posterior parieto-occipital mid convexities along the posterior margins of patient's known cerebral infarct consistent with hemorrhage. There is no in creased mass effect or midline shift. No additional region of intra or extra-axial hemorrhage is demo nstrated. Ventricles are stable in size. Brainstem and cerebellum are intact. Remainder of the exam i s unchanged. CONCLUSION: 1. No significant interval change. 2. Stable appearance of increased density in the posterior parietal occipital mid convexities along the posterior margin of patient's cerebral infarct consistent with hemorrhage. 3. No midline shift, hydrocephalus or intercurrent hemorrhage. . Electronically signed by: Gumaro Magana MD 11/01/2017 5:56 AM EDT
[2017-11-01] MEDS: Sod Chloride 0.9% Inj 1,000 ML IV.CONT SCH ×2 (06:40→15:27)
[2017-11-01] MEDS: Chlorhexidine Gluconate 2% 1 Pack (2 Cloths) TOPICAL SCH (09:11)
[2017-11-01] MEDS: Famotidine 20 MG Tablet PO SCH ×2 (09:21→21:26)
[2017-11-01] MEDS: Senna/Docusate Sodium 8.6/50 MG Tablet PO SCH ×2 (09:22→21:26)
[2017-11-01 09:36] LABS: Baso # (Auto) 0.1 th/mm3 (0.0-0.2); Baso % (Auto) 0.8 % (0.0-2.0); Hematocrit 39.7 % (35.0-46.0); Hemoglobin 12.9 gm/dL (11.6-15.3); Lymph # (Auto) 1.3 th/mm3 (1.0-4.8); Lymph % (Auto) 7.2 % (9.0-44.0); Mean Corpuscular HGB Conc 32.5 % (32.0-36.0); Mean Corpuscular Hemoglobin 30.8 pg (27.0-34.0); Mean Corpuscular Volume 94.8 fL (80.0-100.0); Mean Platelet Volume 7.2 fL (7.0-11.0); Mono % (Auto) 5.6 % (0.0-8.0); Neut # (Auto) 15.8 th/mm3 (1.8-7.7); Neut % (Auto) 86.4 % (16.0-70.0); Platelet Count 378 th/mm3 (150-450); Red Blood Count 4.18 mil/mm3 (4.00-5.30); Red Cell Distribution Width 14.6 % (11.6-17.2); White Blood Count 18.3 th/mm3 (4.0-11.0)
[2017-11-01 09:42] LABS: INR 1.1 Ratio; Prothrombin Time 11.2 sec (9.8-11.6)
[2017-11-01 10:05] LABS: Calcium 7.8 mg/dL (8.5-10.1); Carbon Dioxide 19.1 meq/L (21.0-32.0); Magnesium 1.9 mg/dL (1.5-2.5); Phosphorus 3.6 mg/dL (2.5-4.9); Potassium 3.9 meq/L (3.5-5.1)
--- NOTE | 2017-11-01 11:36 | P.PNNEU ---
Subjective Subjective Comments: improved overnoc Active Medications: Active Medications Acetaminophen (Tylenol) 650 mg PO Q6H PRN PRN Reason: PAIN 1-10 AND/OR FEVER >101F Al Hydroxide/Mg Hydroxide (Milk Of Magnesia Liq) 30 ml PO Q12H PRN PRN Reason: Mild Constipation Bisacodyl (Dulcolax Supp) 10 mg RECTAL DAILY PRN PRN Reason: SEVERE CONSITIPATION Chlorhexidine Gluconate (Chlorhexidine 2% Cloth) 3 pack TOPICAL DAILY@0400 [facility] Stop: 11/06/17 03:59 Last Admin: 11/01/17 09:11 Dose: Not Given Chlorhexidine Gluconate (Chlorhexidine 2% Cloth) 3 pack TOPICAL DAILY@0400 PRN PRN Reason: Extra cloth needed Stop: 11/06/17 03:59 Famotidine (Pepcid) 10 mg PO BID [facility] Last Admin: 11/01/17 09:21 Dose: Not Given Nicardipine HCl 25 mg/ Sodium (Chloride) 250 mls @ 50 mls/hr IV.CONT TITRATE PRN; Protocol PRN Reason: Per Protocol Last Admin: 11/01/17 10:07 Dose: 10 mg/hr, 100 mls/hr Sodium Chloride (Ns Inj) 1,000 mls @ 84 mls/hr IV.CONT .[id number] [facility] Last Admin: 11/01/17 06:40 Dose: 84 mls/hr Lactulose (Lactulose Liq) 30 ml PO DAILY PRN PRN Reason: SEVERE CONSITIPATION Miscellaneous (Pill Splitter) 1 each OTHER UNSCH PRN PRN Reason: SEE LABEL COMMENTS Ondansetron HCl (Zofran Odt) 4 mg PO Q6H PRN PRN Reason: NAUSEA OR VOMITING Last Admin: 10/31/17 13:40 Dose: 4 mg Senna/Docusate Sodium (Juany-Colace) 1 tab PO BID [facility] Last Admin: 11/01/17 09:22 Dose: Not Given Sennosides (Senokot) 17.2 mg PO Q12H PRN PRN Reason: Moderate Constipation Sodium Chloride (Ns Flush) 2 ml IV.FLUSH BID [facility] Last Admin: 11/01/17 09:21 Dose: 2 ml Sodium Chloride (Ns Flush) 2 ml IV.FLUSH UNSCH PRN PRN Reason: FLUSH AFTER USING IV ACCESS Allergies/Adverse Reactions: Allergies Allergy/AdvReac Type Severity Reaction Status Date / Time Influenza Virus Vaccines Allergy Severe HIVES Unverified 10/31/17 10:27 lansoprazole Allergy Severe "SHUTS Unverified 10/31/17 10:27 DOWN KINDEYS" meperidine Allergy Severe SYNCOPY Unverified 10/31/17 10:27 penicillin G Allergy Severe Anaphylaxis Unverified 10/31/17 10:27 tetanus toxoid, adsorbed Allergy Severe RESP Unverified 10/31/17 10:27 DISTRESS Sulfa (Sulfonamide Allergy Mild Nausea Unverified 10/31/17 10:27 Antibiotics) erythromycin base Allergy Unknown Nausea Verified 10/31/17 10:27 morphine Allergy Unknown Nausea Verified 10/31/17 10:27 nitroglycerin Allergy Unknown Nausea Verified 10/31/17 10:27 prochlorperazine Allergy Unknown Nausea Verified 10/31/17 10:27 tetanus immune globulin Allergy Unknown Nausea Verified 10/31/17 10:27 EES AdvReac Mild Nausea Uncoded 10/31/17 10:27 Physical Exam Vital signs: Vital Signs 10/31/17 12:00 10/31/17 16:00 10/31/17 20:00 Temperature 98.3 F 98.3 F 98.5 F Pulse Rate 82 84 80 Respiratory Rate 16 18 16 Blood Pressure 185/81 H 143/63 H 127/60 Pulse Oximetry 94 L 100 96 10/31/17 20:10 10/31/17 22:07 11/01/17 00:00 Temperature 98.2 F Pulse Rate 71 83 Respiratory Rate 16 Blood Pressure 142/60 H Pulse Oximetry 97 93 L 11/01/17 00:07 11/01/17 04:00 11/01/17 06:00 Temperature 98.5 F Pulse Rate 83 90 80 Respiratory Rate 16 Blood Pressure 133/60 Pulse Oximetry 94 L 11/01/17 08:00 Temperature 97.7 F Pulse Rate 88 Respiratory Rate 18 Blood Pressure 141/60 H Pulse Oximetry 93 L Intake & Output 10/31/17 11/01/17 11/01/17 18:59 06:59 18:59 Intake Total 580 / 580 1999 Output Total 800 / 800 125 / 125 Balance -220 / -220 1875 / 1875 Weight 62.3 kg 60.6 kg Intake: IV 580 / 580 1999 1999 NS Inj 1,000 ML @ 84 mls/hr IV. 1000 / 1000 CONT .[id number] [facility] Rx#:[id number] Cardene Inj 25 MG In NS Inj 240 580 / 580 1000 / 1000 ML @ 5 MG/HR 50 mls/hr IV.CONT TITRATE PRN Rx#:[id number] Oral 0 / 0 Output: Urine 125 / 125 Urine Amount (Catheter) 800 / 800 Indwelling Urethral Catheter 800 / 800 Other: # Voids 1 Date of Last Bowel Movement 10/31/17 10/31/17 10/31/17 # Bowel Movements 0 0 Weight On Admission 62.3 kg Narrative: awake can say hello and goodbye and follow commands dysarthric r droop o/5 r hand r tricep and rle nl - Urinary Catheter Management Indwelling Urethral Catheter Cath placed during this visit: yes Reason for continuing: Hourly intake/output Insertion date: 10/31/17 Objective Laboratory Results - last 24 hr 10/31/17 11/01/17 11/01/17 12:15 07:38 07:38 WBC 18.3 H D RBC 4.18 Hgb 12.9 Hct 39.7 MCV 94.8 MCH 30.8 MCHC 32.5 RDW 14.6 Plt Count 378 MPV 7.2 Neut % (Auto) 86.4 H Lymph % (Auto) 7.2 L Patrick % (Auto) 5.6 Eos % (Auto) 0.0 Baso % (Auto) 0.8 Neut # (Auto) 15.8 H Lymph # (Auto) 1.3 Patrick # (Auto) 1.0 H Eos # (Auto) 0.0 Baso # (Auto) 0.1 WBC Differential . Differential Comment Auto diff final PT 11.2 INR 1.1 Sodium Potassium Chloride Carbon Dioxide Anion Gap BUN Creatinine Estimated GFR Random Glucose Calcium Phosphorus Magnesium Nasal Screen MRSA (PCR) Not detected 11/01/17 07:38 WBC RBC Hgb Hct MCV MCH MCHC RDW Plt Count MPV Neut % (Auto) Lymph % (Auto) Patrick % (Auto) Eos % (Auto) Baso % (Auto) Neut # (Auto) Lymph # (Auto) Patrick # (Auto) Eos # (Auto) Baso # (Auto) WBC Differential Differential Comment PT INR Sodium 141 Potassium 3.9 Chloride 109 H Carbon Dioxide 19.1 L Anion Gap 13 BUN 24 H Creatinine 1.42 H Estimated GFR 35 L Random Glucose 139 H Calcium 7.8 L D Phosphorus 3.6 Magnesium 1.9 Nasal Screen MRSA (PCR) Review/Management - Review/Management Plan: imp afib some hemorrhagic component from r mca 2 cva probably occurred in last 2 months with some falls tiny on mri left mca cortical infarct must be slightly larger than mri shows 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
[2017-11-01] MEDS ORDERED: Labetalol HCl Inj 100 MG/20 ML Vial IV.PUSH PRN (14:45)
--- NOTE | 2017-11-01 14:57 | P.PNCC ---
Subjective Subjective Remarks/Hospital Course: This otherwise healthy 87-year-old woman developed difficulty with speech and a weak right side while eating breakfast this morning. She was brought to the emergency department where she ruled in as a stroke alert and after evaluation by Dr. Lozoya from neurology she received TPA. In the emergency department her right sided deficit was quite dense and her speech difficulties were pronounced. Both difficulties improved modestly at first and at that point she has been transported to the [facility]. Blood pressure control has been obtained with intravenous Cardene infusion. She developed some gastric retching and a worse headache, MRI and repeat CT indicate an area of possible bleeding posteriorly in the parietal region however the woman remains clearly improved from prior to the TPA. Her speech and reception clerk are near normal, hampered only by her difficulty hearing. She has a good sense of humor and asks appropriate questions. She can raise her right arm above gravity but the hand grasp remains weak. The patient has expressed quite clearly to me that she would not want any therapy that would involve ventilators or surgery. Although she is doing well at this time she would like us to continue full care but she prefers to be DNR status. 11/01: She is alert and oriented. Speech is modestly slurred. Her right sided extremity strength has improved. She has a pronounced right facial droop. She failed her swallow evaluation. Started on Catapres patch and intravenous labetalol and attempt to wean off the Cardene. She will eventually need an NG tube or Dobbhoff. Objective Vital Signs / I&O: Vital Signs 10/31/17 16:00 10/31/17 20:00 10/31/17 20:10 Temperature 98.3 F 98.5 F Pulse Rate 84 80 Respiratory Rate 18 16 Blood Pressure 143/63 H 127/60 Pulse Oximetry 100 96 97 10/31/17 22:07 11/01/17 00:00 11/01/17 00:07 Temperature 98.2 F Pulse Rate 71 83 83 Respiratory Rate 16 Blood Pressure 142/60 H Pulse Oximetry 93 L 11/01/17 04:00 11/01/17 06:00 11/01/17 08:00 Temperature 98.5 F 97.7 F Pulse Rate 90 80 88 Respiratory Rate 16 18 Blood Pressure 133/60 141/60 H Pulse Oximetry 94 L 93 L 11/01/17 10:00 11/01/17 12:00 11/01/17 14:00 Temperature 97.9 F Pulse Rate 88 94 H 93 H Respiratory Rate 20 Blood Pressure 160/67 H Pulse Oximetry 98 Intake & Output 10/31/17 11/01/17 11/01/17 18:59 06:59 18:59 Intake Total 580 / 580 2000 / 2000 250 / 250 Output Total 800 / 800 125 / 125 Balance -220 / -220 1875 / 1875 250 / 250 Weight 62.3 kg 60.6 kg Intake: IV 580 / 580 2000 / 2000 250 / 250 NS Inj 1,000 ML @ 84 mls/hr IV. 1000 / 1000 CONT .[id number] [facility] Rx#:[id number] Cardene Inj 25 MG In NS Inj 240 580 / 580 1000 / 1000 250 / 250 ML @ 5 MG/HR 50 mls/hr IV.CONT TITRATE PRN Rx#:[id number] Oral 0 / 0 Output: Urine 125 / 125 Urine Amount (Catheter) 800 / 800 Indwelling Urethral Catheter 800 / 800 Other: # Voids 1 Date of Last Bowel Movement 10/31/17 10/31/17 11/01/17 # Bowel Movements 0 0 Weight On Admission 62.3 kg Result Diagrams: 11/01/17 07:38 11/01/17 07:38 Objective Remarks: - Imaging Impressions Chest X-Ray 10/31/17 09:22 CONCLUSION: No acute cardiopulmonary disease. Head CT 10/31/17 09:22 CONCLUSION: Chronic small vessel ischemic and atrophic changes. Report was called by myself to Dr. Bautista Lozoya at 9:38 hours.] Neck CTA 10/31/17 09:22 CONCLUSION: 1. Significant atherosclerotic plaquing involving the aorta and origin of bilateral internal carotid arteries with soft plaque involving the origin of the left internal coronary artery and no significant stenosis. Exam Vital signs: Physical: Head: Atraumatic and normal. Neck: Supple, airway widely patent, no problems swallowing secretions. Lungs: Clear bilaterally without wheezes or crackles, comfortable respiratory pattern. Heart: Irregular regular rhythm rate controlled no jugular venous distention. Abdomen: Soft, nondistended, no guarding, bowel sounds present. Extremities: Warm, well-perfused Neuro: Pupils reactive to light. Patient tracks with eyes. Right arm and leg considerably improved motor strength. Expressive improved. Alert. Assessment and Plan - Problem List (1) Hypertensive crisis Code(s): I16.9 - Hypertensive crisis, unspecified Status: Acute (2) Atrial fibrillation, permanent Code(s): I48.2 - Chronic atrial fibrillation Status: Acute (3) Acute ischemic stroke Code(s): I63.9 - Cerebral infarction, unspecified Status: Acute (4) Received intravenous tissue plasminogen activator (t-PA) in emergency department Code(s): Z92.82 - Status post administration of tPA (rtPA) in a different facility within the last 24 hours prior to admission to current facility Status: Acute - Assessment and Plan Plan: Plan: -Failed swallow eval. Will place NG tube or Dobbhoff 24 hours after TPA is finished. -Maintain arterial blood pressure less than 140/90. -Bedrest. -Bedside swallow evaluation. -PT and OT evaluation and treatment -Cardene infusion to maintain blood pressure, convert to oral medication -Repeat head CT after 24 hours or sooner for any neuro -SCDs for DVT prophylaxis. -Pepcid for GI ulcer prophylaxis. -Neurochecks. -Add Catapres patch until she can take p.o. -Supplement with labetalol as needed for blood pressure control. Overall impression: This woman has developed an acute ischemic stroke involving the left hemisphere. She has stable respiratory function and her hemodynamics are good, well controlled on Cardene infusion. Minor bleeding into the posterior parietal region appears limited. Transfer to floor when off Cardene.
[2017-11-01] MEDS: niCARdipine Inj 50 MG in Sodium Chlor 0.9% Inj 230 ML IV.CONT PRN ×2 (18:17→23:21)
[2017-11-02] MEDS: Chlorhexidine Gluconate 2% 1 Pack (2 Cloths) TOPICAL SCH (03:35)
[2017-11-02] MEDS: niCARdipine Inj 50 MG in Sodium Chlor 0.9% Inj 230 ML IV.CONT PRN ×2 (03:36→10:18)
[2017-11-02 05:30] LABS: Calcium 8.1 mg/dL (8.5-10.1); Carbon Dioxide 16.4 meq/L (21.0-32.0); Potassium 3.9 meq/L (3.5-5.1)
[2017-11-02] MEDS: Aspirin 300 MG Supp RECTAL SCH (08:12)
[2017-11-02] MEDS: Famotidine 20 MG Tablet PO SCH (08:13)
[2017-11-02] MEDS: Senna/Docusate Sodium 8.6/50 MG Tablet PO SCH ×2 (08:14→20:16)
--- NOTE | 2017-11-02 09:12 | P.PNNEU ---
Subjective Subjective Comments: No acute events reported Active Medications: Active Medications Acetaminophen (Tylenol) 650 mg PO Q6H PRN PRN Reason: PAIN 1-10 AND/OR FEVER >101F Al Hydroxide/Mg Hydroxide (Milk Of Magnesia Liq) 30 ml PO Q12H PRN PRN Reason: Mild Constipation Albuterol (Albuterol Neb (Prn)) 2.5 mg NEB Q2HR NEB PRN PRN Reason: WHEEZING Last Admin: 11/02/17 08:15 Dose: 2.5 mg Aspirin (Aspirin Supp) 300 mg RECTAL DAILY [facility] Last Admin: 11/02/17 08:12 Dose: 300 mg Bisacodyl (Dulcolax Supp) 10 mg RECTAL DAILY PRN PRN Reason: SEVERE CONSITIPATION Chlorhexidine Gluconate (Chlorhexidine 2% Cloth) 3 pack TOPICAL DAILY@0400 [facility] Stop: 11/06/17 03:59 Last Admin: 11/02/17 03:35 Dose: 3 pack Chlorhexidine Gluconate (Chlorhexidine 2% Cloth) 3 pack TOPICAL DAILY@0400 PRN PRN Reason: Extra cloth needed Stop: 11/06/17 03:59 Clonidine HCl (Catapress-Tts 0.2 Mg Patch.7d) 1 patch T-DERMAL Q7D [facility] Last Admin: 11/01/17 15:27 Dose: 1 patch Famotidine (Pepcid) 10 mg PO BID [facility] Last Admin: 11/02/17 08:13 Dose: Not Given Nicardipine HCl 50 mg/ Sodium (Chloride) 250 mls @ 25 mls/hr IV.CONT TITRATE PRN; Protocol PRN Reason: Per Protocol Last Admin: 11/02/17 03:36 Dose: 10 mg/hr, 50 mls/hr Labetalol HCl (Trandate Inj) 20 mg IV.PUSH Q2H PRN PRN Reason: SBP>160, DBP>90 Lactulose (Lactulose Liq) 30 ml PO DAILY PRN PRN Reason: SEVERE CONSITIPATION Miscellaneous (Pill Splitter) 1 each OTHER UNSCH PRN PRN Reason: SEE LABEL COMMENTS Ondansetron HCl (Zofran Odt) 4 mg PO Q6H PRN PRN Reason: NAUSEA OR VOMITING Last Admin: 11/02/17 00:20 Dose: 4 mg Patch Removal (Remove Old Patch) 1 each T-DERMAL Q7D [facility] Last Admin: 11/01/17 16:30 Dose: 1 each Senna/Docusate Sodium (Juany-Colace) 1 tab PO BID [facility] Last Admin: 11/02/17 08:14 Dose: Not Given Sennosides (Senokot) 17.2 mg PO Q12H PRN PRN Reason: Moderate Constipation Sodium Chloride (Ns Flush) 2 ml IV.FLUSH BID [facility] Last Admin: 11/02/17 08:13 Dose: 2 ml Sodium Chloride (Ns Flush) 2 ml IV.FLUSH UNSCH PRN PRN Reason: FLUSH AFTER USING IV ACCESS Allergies/Adverse Reactions: Allergies Allergy/AdvReac Type Severity Reaction Status Date / Time Influenza Virus Vaccines Allergy Severe HIVES Unverified 10/31/17 10:27 lansoprazole Allergy Severe "SHUTS Unverified 10/31/17 10:27 DOWN KINDEYS" meperidine Allergy Severe SYNCOPY Unverified 10/31/17 10:27 penicillin G Allergy Severe Anaphylaxis Unverified 10/31/17 10:27 tetanus toxoid, adsorbed Allergy Severe RESP Unverified 10/31/17 10:27 DISTRESS Sulfa (Sulfonamide Allergy Mild Nausea Unverified 10/31/17 10:27 Antibiotics) erythromycin base Allergy Unknown Nausea Verified 10/31/17 10:27 morphine Allergy Unknown Nausea Verified 10/31/17 10:27 nitroglycerin Allergy Unknown Nausea Verified 10/31/17 10:27 prochlorperazine Allergy Unknown Nausea Verified 10/31/17 10:27 tetanus immune globulin Allergy Unknown Nausea Verified 10/31/17 10:27 EES AdvReac Mild Nausea Uncoded 10/31/17 10:27 Physical Exam Vital signs: Vital Signs 11/01/17 10:00 11/01/17 12:00 11/01/17 14:00 Temperature 97.9 F Pulse Rate 88 94 H 93 H Respiratory Rate 20 Blood Pressure 160/67 H Pulse Oximetry 98 11/01/17 16:00 11/01/17 18:00 11/01/17 19:15 Temperature 98 F Pulse Rate 94 H 96 H Respiratory Rate 18 Blood Pressure 143/63 H Pulse Oximetry 95 92 L 11/01/17 20:00 11/01/17 21:25 11/01/17 22:00 Temperature 98.4 F Pulse Rate 88 93 H 98 H Respiratory Rate 20 18 Blood Pressure 157/67 H Pulse Oximetry 94 L 11/02/17 00:00 11/02/17 02:00 11/02/17 04:00 Temperature 98.4 F 98.5 F Pulse Rate 84 100 H 84 Respiratory Rate Blood Pressure 131/64 147/65 H Pulse Oximetry 92 L 11/02/17 06:00 11/02/17 08:15 Temperature Pulse Rate 84 119 H Respiratory Rate 19 Blood Pressure Pulse Oximetry 94 L Intake & Output 11/01/17 11/02/17 11/02/17 18:59 06:59 18:59 Intake Total 750 / 750 500 / 500 Output Total 100 / 100 Balance 650 / 650 500 / 500 Weight 65 kg Intake: IV 750 / 750 500 / 500 NS Inj 1,000 ML @ 84 mls/hr IV. 0 / 0 CONT .[id number] [facility] Rx#:[id number] Cardene Inj 50 MG In NS Inj 230 750 / 750 500 / 500 ML @ 5 MG/HR 25 mls/hr IV.CONT TITRATE PRN Rx#:[id number] Oral 0 / 0 0 / 0 Water Bolus Amount 0 / 0 Output: Urine 100 / 100 Other: # Voids 4 # Urine Diapers 0 Date of Last Bowel Movement 11/01/17 11/02/17 # Bowel Movements 1 4 Narrative: can name and repeat dysarthric more than aphasic can lift rue up and rle r droop - Urinary Catheter Management Indwelling Urethral Catheter Cath placed during this visit: yes, but has since been removed by the nurse Reason for continuing: Decision to DC catheter Insertion date: 10/31/17 Removal date: 11/01/17 Removal time: 15:00 Objective Laboratory Results - last 24 hr 11/01/17 11/01/17 11/01/17 07:38 07:38 07:38 WBC 18.3 H D RBC 4.18 Hgb 12.9 Hct 39.7 MCV 94.8 MCH 30.8 MCHC 32.5 RDW 14.6 Plt Count 378 MPV 7.2 Neut % (Auto) 86.4 H Lymph % (Auto) 7.2 L Crook % (Auto) 5.6 Eos % (Auto) 0.0 Baso % (Auto) 0.8 Neut # (Auto) 15.8 H Lymph # (Auto) 1.3 Crook # (Auto) 1.0 H Eos # (Auto) 0.0 Baso # (Auto) 0.1 WBC Differential . Differential Comment Auto diff final PT 11.2 INR 1.1 Sodium 141 Potassium 3.9 Chloride 109 H Carbon Dioxide 19.1 L Anion Gap 13 BUN 24 H Creatinine 1.42 H Estimated GFR 35 L Random Glucose 139 H Calcium 7.8 L D Phosphorus 3.6 Magnesium 1.9 11/02/17 04:13 WBC RBC Hgb Hct MCV MCH MCHC RDW Plt Count MPV Neut % (Auto) Lymph % (Auto) Crook % (Auto) Eos % (Auto) Baso % (Auto) Neut # (Auto) Lymph # (Auto) Crook # (Auto) Eos # (Auto) Baso # (Auto) WBC Differential Differential Comment PT INR Sodium 142 Potassium 3.9 Chloride 112 H Carbon Dioxide 16.4 L Anion Gap 14 BUN 38 H Creatinine 2.11 H Estimated GFR 22 L Random Glucose 153 H Calcium 8.1 L Phosphorus Magnesium Review/Management - Review/Management Plan: imp afib some hemorrhagic component from r mca 2 cva probably occurred in last 2 months with some falls tiny on mri left mca cortical infarct must be slightly larger than mri shows 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
--- NOTE | 2017-11-02 12:02 | ECG ---
Date Performed: 10/31/2017 Time Performed: 10:49:54 PTAGE: 87 years EKG: There appears to be a wide complex tachycardia but there is significant baseline wander and artifact limiting accuracy of interpretation PREVIOUS TRACING : 04/05/2017 22.32 DOCTOR: Johnathan Wolf Interpretating Date/Time 11/02/2017 12:01:38
[2017-11-02] MEDS ORDERED: Clevidipine Inj 25 MG/50 ML VIAL IV.CONT PRN (15:04)
--- NOTE | 2017-11-02 15:16 | P.PNCC ---
Subjective Subjective Remarks/Hospital Course: This otherwise healthy 87-year-old woman developed difficulty with speech and a weak right side while eating breakfast this morning. She was brought to the emergency department where she ruled in as a stroke alert and after evaluation by Dr. Lozoya from neurology she received TPA. In the emergency department her right sided deficit was quite dense and her speech difficulties were pronounced. Both difficulties improved modestly at first and at that point she has been transported to the [facility]. Blood pressure control has been obtained with intravenous Cardene infusion. She developed some gastric retching and a worse headache, MRI and repeat CT indicate an area of possible bleeding posteriorly in the parietal region however the woman remains clearly improved from prior to the TPA. 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 She has a good sense of humor and asks appropriate questions. She can raise her right arm above gravity but the hand grasp remains weak. The patient has expressed quite clearly to me that she would not want any therapy that would involve ventilators or surgery. Although she is doing well at this time she would like us to continue full care but she prefers to be DNR status. 11/01: She is alert and oriented. Speech is modestly slurred. Her right sided extremity strength has improved. She has a pronounced right facial droop. She failed her swallow evaluation. Started on Catapres patch and intravenous labetalol and attempt to wean off the Cardene. She will eventually need an NG tube or Dobbhoff. SUBJECTIVE: 11/02: Remains on nifedipine drip at 10 mg an hour. Failed swallow evaluation. Refusing Dobbhoff or NG tube. Will start TPN and switch to clevidipine drip. Right upper extremity with positive pronator drip and significant discoordination with facial droop right-sided Objective Vital Signs / I&O: Vital Signs 11/01/17 16:00 11/01/17 18:00 11/01/17 19:15 Temperature 98 F Pulse Rate 94 H 96 H Respiratory Rate 18 Blood Pressure 143/63 H Pulse Oximetry 95 92 L 11/01/17 20:00 11/01/17 21:25 11/01/17 22:00 Temperature 98.4 F Pulse Rate 88 93 H 98 H Respiratory Rate 20 18 Blood Pressure 157/67 H Pulse Oximetry 94 L 11/02/17 00:00 11/02/17 02:00 11/02/17 04:00 Temperature 98.4 F 98.5 F Pulse Rate 84 100 H 84 Respiratory Rate Blood Pressure 131/64 147/65 H Pulse Oximetry 92 L 11/02/17 06:00 11/02/17 08:00 11/02/17 08:15 Temperature 97.9 F Pulse Rate 84 100 H 119 H Respiratory Rate 19 Blood Pressure 145/62 H Pulse Oximetry 93 L 94 L 11/02/17 10:00 11/02/17 12:00 Temperature 98.0 F Pulse Rate 104 H 111 H Respiratory Rate Blood Pressure 133/58 L Pulse Oximetry 95 Intake & Output 11/01/17 11/02/17 11/02/17 18:59 06:59 18:59 Intake Total 750 / 750 500 / 500 295 / 295 Output Total 100 / 100 Balance 650 / 650 500 / 500 295 / 295 Weight 65 kg Intake: IV 750 / 750 500 / 500 295 / 295 NS Inj 1,000 ML @ 84 mls/hr IV. 0 / 0 CONT .[id number] [facility] Rx#:[id number] Cardene Inj 50 MG In NS Inj 230 750 / 750 500 / 500 250 / 250 ML @ 5 MG/HR 25 mls/hr IV.CONT TITRATE PRN Rx#:[id number] Oral 0 / 0 0 / 0 Water Bolus Amount 0 / 0 Output: Urine 100 / 100 Other: # Voids 4 # Urine Diapers 0 Date of Last Bowel Movement 11/01/17 11/02/17 11/01/17 # Bowel Movements 1 4 Result Diagrams: 11/01/17 07:38 11/02/17 04:13 Imaging: Head MRI 10/31/17 00:00 CONCLUSION: 1. Findings are mostly consistent with subacute laminar necrosis of right frontal lobe and posterior parietal lobe with possible areas of superimposed acute infarction in the right posterior parietal lobe manifested as restriction diffusion capacity. 2. Tiny enhancing nodule right periventricular region 4 mm in size possibly an area of subacute lacunar infarction and should be followed. 3. Possibility of hemorrhage should be entertained as described above particularly in the right posterior parietal infarction. Findings were discussed with Dr. Lozoya at the time of this dictation. Chest X-Ray 10/31/17 09:22 CONCLUSION: No acute cardiopulmonary disease. Head CT 10/31/17 09:22 CONCLUSION: Chronic small vessel ischemic and atrophic changes. Report was called by myself to Dr. Bautista Lozoya at 9:38 hours.] Neck CTA 10/31/17 09:22 CONCLUSION: 1. Significant atherosclerotic plaquing involving the aorta and origin of bilateral internal carotid arteries with soft plaque involving the origin of the left internal coronary artery and no significant stenosis. Head CT 10/31/17 15:04 CONCLUSION: 1. Increased density seen in the right posterior parietal lobe area of infarction corresponding to area of dark signal on the patient's prior MRI susceptibility weighted imaging. Possibility of hemorrhage is highly suspected at this site. . Head CT 11/01/17 06:00 CONCLUSION: 1. No significant interval change. 2. Stable appearance of increased density in the posterior parietal occipital mid convexities along the posterior margin of patient's cerebral infarct consistent with hemorrhage. 3. No midline shift, hydrocephalus or intercurrent hemorrhage. . Objective Remarks: Head: Atraumatic and normocephalic Neck: Supple, airway widely patent, no problems swallowing secretions. Lungs: Clear bilaterally without wheezes or crackles, comfortable respiratory pattern. Heart: Tachycardic, irregular regular rhythm rate controlled no jugular venous distention. Abdomen: Soft, nondistended, no guarding, bowel sounds present. Extremities: Warm, well-perfused Neuro: Pupils reactive to light. Patient tracks with eyes. Right arm and leg considerably improved motor strength currently 4-5. Discoordination right upper extremity. Right facial droop improved.. Expressive aphasia improved. Alert. Assessment and Plan - Assessment and Plan Plan: Neuro/Psych: Left MCA CVA/right parietal CVA subacute MRI brain on admission revealed changes in the right frontal/posterior parietal right parietal regions possibly subacute ischemia. CTA head and neck showed atherosclerotic vessels with no significant stenosis CT brain 11/01 shows residual hemorrhage Followed by Dr. Lozoya/neurology Continue aspirin 3 mg per rectum daily Start lipid lowering agent when able to swallow. Status post alteplase CV: Hypertensive emergency Home medications verapamil unknown dosage daily. Unable to take his n.p.o. Switch from nicardipine drip to clevidipine drip maintain systolic blood pressure less than 160 Labetalol 10 mg IV every 2 hours as needed Troponin 0 0.08 on admission. Check lipid panel Started on Catapres patch 0.2 mg weekly yesterday per previous bi manager Resp: Acute hypoxic insufficiency Nasal cannula per stroke protocol. Currently on 2 L Incentive spirometry while awake Follow-up chest x-ray in a.m. GI: Hypoalbuminemia Failed swallow evaluation. Refuses Dobbhoff or NG tube. Daughter at bedside Start PPN at 50 cc an hour. Clevidipine drip will provide lipids Dulcolax suppository daily for bowel regimen Famotidine 20 mg daily for GI prophylaxis : No Ye catheter Endo: Sliding scale insulin to maintain euglycemia. Check hemoglobin A1c Renal: Acute kidney injury Received 1 dose of furosemide yesterday. We will bolus with 1 L LR. Start on normal saline 84 cc hours until TPN made available Heme: Leukocytosis Monitor CBC daily. Follow trends. Start systemic anticoagulants in 2 weeks post CVA ID: Monitor for signs and symptomatology infection MSK: PT/OT evaluate and treat FEN: Hyponatremia Replace electrolytes as clinically indicated Access -Utilize peripheral IV. Central line if indicated Prophylaxis -GI -famotidine -DVT -SCD/holding pharmacological prophylaxis status post intracranial hemorrhage Discussed with daughter at bedside. Level 3 follow-up.
[2017-11-02] MEDS: Famotidine PF Inj 20 MG/2 ML Vial IV.PUSH SCH (16:02)
[2017-11-02] MEDS: Sod Chloride 0.9% Inj 1,000 ML IV.CONT SCH (16:02)
[2017-11-02 16:28] LABS: Chol/HDL Ratio 3.59 Ratio; HDL Cholesterol 47.8 mg/dL (40.0-60.0)
--- NOTE | 2017-11-02 16:34 | US ---
EXAM DATE: 11/02/2017 4:15 PM EDT AGE/SEX: 87 years / Female INDICATIONS: Increased BUN and creatinine. CLINICAL DATA: This is the patient's initial encounter. Patient reports that signs and symptoms have been present for 1 day and indicates a pain score of 0/10. MEDICAL/SURGICAL HISTORY: Hypertension. Aneurysm, intracranial. Transient ischemic attack. A fib. Heart murmur. . COMPARISON: No prior exams available for comparison. MEASUREMENTS: Right Kidney:__8.0 x 4.7 x 4.9 cm Left Kidney:__8.3 x 4.3 x 5.0 cm FINDINGS: The kidney is are small with cortical thinning identified. Calcified splenic granulomas are noted. Th e urinary bladder is normal. There is no evidence of hydronephrosis. Left pleural effusion. CONCLUSION: 1. Small lobular kidneys with cortical thinning. 2. . Large left effusion. Electronically signed by: Osito Hinds MD 11/02/2017 4:33 PM EDT
[2017-11-02] MEDS: Labetalol HCl Inj 100 MG/20 ML Vial IV.PUSH PRN (17:08)
--- NOTE | 2017-11-02 20:47 | ECHRPT ---
Indication: CVA/TIA CONCLUSIONS Normal left ventricular size. Wall thickness is normal. The left ventricular systolic function is normal with an estimated ejection fraction in the range of 55-60%. No definite regional wall motion abnormalities are present. The right atrial size is possibly mildly enlarged. Mild mitral annular calcification is present. Mild to moderate mitral valve regurgitation. Trace aortic valve regurgitation. Trileaflet aortic valve. There is moderate to severe tricuspid valve regurgitation. The estimated systolic pulmonary pressure is 60 mm Hg. BP: / HR: Rhythm: Technical Quality: FINDINGS LEFT VENTRICLE Normal left ventricular size. Wall thickness is normal. The left ventricular systolic function is normal with an estimated ejection fraction in the range of 55-60%. No regional wall motion abnormalities are present. RIGHT VENTRICLE Normal right ventricular size and systolic function. LEFT ATRIUM The left atrial size is normal. RIGHT ATRIUM The right atrial size is possibly mildly enlarged. ATRIAL SEPTUM Normal atrial septal thickness without atrial level shunting by limited color doppler interrogation. AORTA The aortic root and proximal ascending aorta are normal in size on limited imaging. MITRAL VALVE Mild mitral annular calcification is present. Mild to moderate mitral valve regurgitation. AORTIC VALVE Trace aortic valve regurgitation. Trileaflet aortic valve. TRICUSPID VALVE There is moderate to severe tricuspid valve regurgitation. The estimated systolic pulmonary pressure is 60 mm Hg. PULMONARY VALVE The pulmonary valve is not well visualized. VESSELS The inferior vena cava is normal in size. PERICARDIUM A moderate left sided pleural effusion is noted. Manfred Lujan MD (Electronically Signed) Final Date:02 November 2017 20:46
[2017-11-03 04:28] LABS: Alanine Aminotransferase 67 U/L (10-53); Alkaline Phosphatase 72 U/L (45-117); Anion Gap 11 meq/L (5-15); Aspartate Aminotransferase 107 U/L (15-37); Blood Urea Nitrogen 57 mg/dL (7-18); Calcium 8.3 mg/dL (8.5-10.1); Carbon Dioxide 18.4 meq/L (21.0-32.0); Chloride 113 meq/L (98-107); Glomerular Filtration Rate 24 mL/min (>89); Glucose,Random 114 mg/dL (74-106); Magnesium 2.1 mg/dL (1.5-2.5); Phosphorus 3.2 mg/dL (2.5-4.9); Potassium 4.4 meq/L (3.5-5.1); Sodium 142 meq/L (136-145); Total Protein 6.4 g/dL (6.4-8.2)
[2017-11-03 04:37] LABS: Hematocrit 41.9 % (35.0-46.0); Hemoglobin 13.5 gm/dL (11.6-15.3); Lymph # (Auto) 0.6 th/mm3 (1.0-4.8); Lymph % (Auto) 2.5 % (9.0-44.0); Mean Corpuscular HGB Conc 32.2 % (32.0-36.0); Mean Corpuscular Hemoglobin 30.5 pg (27.0-34.0); Mean Corpuscular Volume 94.8 fL (80.0-100.0); Mean Platelet Volume 7.7 fL (7.0-11.0); Mono # (Auto) 0.9 th/mm3 (0.0-0.9); Mono % (Auto) 4.2 % (0.0-8.0); Neut # (Auto) 20.9 th/mm3 (1.8-7.7); Neut % (Auto) 93.3 % (16.0-70.0); Platelet Count 332 th/mm3 (150-450); Red Blood Count 4.42 mil/mm3 (4.00-5.30); Red Cell Distribution Width 14.9 % (11.6-17.2); White Blood Count 22.4 th/mm3 (4.0-11.0)
[2017-11-03 06:38] LABS: Lymphocytes 4 % (9-44); Metamyelocytes 7 % (0-1); Monocytes 3 % (0-8)
[2017-11-03 06:39] LABS: Platelet Estimate Normal (Normal); Platelet Morphology Normal (Normal)
[2017-11-03 06:40] LABS: RBC Morphology Normal (Normal)
--- NOTE | 2017-11-03 07:14 | P.PNCC ---
Subjective Subjective Remarks/Hospital Course: This otherwise healthy 87-year-old woman developed difficulty with speech and a weak right side while eating breakfast this morning. She was brought to the emergency department where she ruled in as a stroke alert and after evaluation by Dr. Lozoya from neurology she received TPA. In the emergency department her right sided deficit was quite dense and her speech difficulties were pronounced. Both difficulties improved modestly at first and at that point she has been transported to the [facility] [place]. Blood pressure control has been obtained with intravenous Cardene infusion. She developed some gastric retching and a worse headache, MRI and repeat CT indicate an area of possible bleeding posteriorly in the parietal region however the woman remains clearly improved from prior to the TPA. 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 She has a good sense of humor and asks appropriate questions. She can raise her right arm above gravity but the hand grasp remains weak. The patient has expressed quite clearly to me that she would not want any therapy that would involve ventilators or surgery. Although she is doing well at this time she would like us to continue full care but she prefers to be DNR status. 11/01: She is alert and oriented. Speech is modestly slurred. Her right sided extremity strength has improved. She has a pronounced right facial droop. She failed her swallow evaluation. Started on Catapres patch and intravenous labetalol and attempt to wean off the Cardene. She will eventually need an NG tube or Dobbhoff. SUBJECTIVE: 11/02: Remains on Nicardipine drip at 10 mg an hour. Failed swallow evaluation. Refusing Dobbhoff or NG tube. Will start TPN and switch to clevidipine drip. Right upper extremity with positive pronator drip and significant discoordination with facial droop right-sided 11/03: Currently off all antihypertensive infusions. Right upper extremity remains flaccid on my exam. Expressive aphasia persist according to nurse stable to slightly worsened overnight. Objective Vital Signs / I&O: Vital Signs 11/02/17 08:00 11/02/17 08:15 11/02/17 10:00 Temperature 97.9 F Pulse Rate 100 H 119 H 104 H Respiratory Rate 19 Blood Pressure 145/62 H Pulse Oximetry 93 L 94 L 11/02/17 12:00 11/02/17 14:00 11/02/17 16:00 Temperature 98.0 F 98.0 F Pulse Rate 111 H 100 H 111 H Respiratory Rate Blood Pressure 133/58 L 133/58 L Pulse Oximetry 95 95 11/02/17 17:03 11/02/17 18:00 11/02/17 20:00 Temperature 98.4 F Pulse Rate 97 H 89 Respiratory Rate Blood Pressure 130/72 Pulse Oximetry 95 94 L 11/02/17 22:00 11/03/17 00:00 Temperature 98.0 F Pulse Rate 70 96 H Respiratory Rate Blood Pressure 153/70 H Pulse Oximetry 24 L Intake & Output 11/02/17 11/03/17 11/03/17 18:59 06:59 18:59 Intake Total 1545 / 1545 Output Total 100 / 100 Balance 1445 / 1445 Intake: IV 1545 / 1545 Cardene Inj 50 MG In NS Inj 230 500 / 500 ML @ 5 MG/HR 25 mls/hr IV.CONT TITRATE PRN Rx#:[id number] LR 1000 mL Inj 1,000 ML @ Wide 1000 / 1000 Open IV.SIG BOLUS ONE Rx#: [id number] Oral 0 / 0 Output: Urine 100 / 100 Other: # Voids 2 Date of Last Bowel Movement 11/02/17 11/01/17 Result Diagrams: 11/03/17 03:17 11/03/17 03:17 Objective Remarks: Head: Atraumatic and normocephalic Neck: Supple, airway widely patent, no problems swallowing secretions. Lungs: Clear bilaterally without wheezes or crackles, comfortable respiratory pattern. Heart: Irregular regular rhythm rate controlled no jugular venous distention. Abdomen: Soft, nondistended, no guarding, bowel sounds present. Extremities: Warm, well-perfused Neuro: Pupils reactive to light. Tracks with eyes. Right arm remains with 1/5 power and right leg considerably 2-3/5. Discoordination right upper extremity. Right facial droop improved.. Expressive aphasia persistent. Alert. Assessment and Plan - Assessment and Plan Plan: Neuro/Psych: Left MCA CVA/right parietal CVA subacute MRI brain on admission revealed changes in the right frontal/posterior parietal right parietal regions possibly subacute ischemia. CTA head and neck showed atherosclerotic vessels with no significant stenosis CT brain 11/01 shows infarct and residual secondary hemorrhage along posterior parietal occipital mid convexities a Followed by Dr. Lozoya/neurology Continue aspirin 3 mg per rectum daily Start lipid lowering agent when able to swallow. Status post alteplase CV: Hypertensive emergency Home medications verapamil unknown dosage daily. Unable to take his n.p.o. Off nicardipine infusion Labetalol 10 mg IV every 2 hours as needed Troponin 0 0.08 on admission. Started on Catapres patch 0.2 mg weekly on 10/31 Resp: Acute hypoxic insufficiency Nasal cannula per stroke protocol. Currently on 2 L Incentive spirometry while awake Follow-up chest x-ray in a.m. GI: Hypoalbuminemia Failed swallow evaluation. Refuses Dobbhoff or NG tube. Daughter at bedside Started PPN at 50 cc an hour. Dulcolax suppository daily for bowel regimen Famotidine 20 mg daily for GI prophylaxis : No Ye catheter Endo: Sliding scale insulin to maintain euglycemia. Renal: Acute kidney injury Received 1 dose of furosemide yesterday. Currently on normal saline 84-DC while PPN going Heme: Leukocytosis Monitor CBC daily. Follow trends. Check UA again ID: Monitor for signs and symptomatology infection CBC MSK: PT/OT evaluate and treat FEN: Hyponatremia Replace electrolytes as clinically indicated Access -Utilize peripheral IV. Central line if indicated Prophylaxis -GI -famotidine -DVT -SCD/holding pharmacological prophylaxis status post intracranial hemorrhage Discussed with daughter at bedside. Level 2 follow-up. Consult hospitalist to assume care in a.m. we will transfer to neuro floor if okay with Dr. Lozoya Code Status: DNR
[2017-11-03] MEDS: Chlorhexidine Gluconate 2% 1 Pack (2 Cloths) TOPICAL SCH (07:33)
--- NOTE | 2017-11-03 08:11 | P.PNNEU ---
Subjective Subjective Comments: looks worse this am Active Medications: Active Medications Acetaminophen (Tylenol) 650 mg PO Q6H PRN PRN Reason: PAIN 1-10 AND/OR FEVER >101F Al Hydroxide/Mg Hydroxide (Milk Of Magnesia Liq) 30 ml PO Q12H PRN PRN Reason: Mild Constipation Albuterol (Albuterol Neb (Prn)) 2.5 mg NEB Q2HR NEB PRN PRN Reason: WHEEZING Last Admin: 11/02/17 08:15 Dose: 2.5 mg Aspirin (Aspirin Supp) 300 mg RECTAL DAILY [facility] Last Admin: 11/02/17 08:12 Dose: 300 mg Bisacodyl (Dulcolax Supp) 10 mg RECTAL DAILY PRN PRN Reason: SEVERE CONSITIPATION Chlorhexidine Gluconate (Chlorhexidine 2% Cloth) 3 pack TOPICAL DAILY@0400 [facility] Stop: 11/06/17 03:59 Last Admin: 11/03/17 07:33 Dose: Not Given Chlorhexidine Gluconate (Chlorhexidine 2% Cloth) 3 pack TOPICAL DAILY@0400 PRN PRN Reason: Extra cloth needed Stop: 11/06/17 03:59 Clonidine HCl (Catapress-Tts 0.2 Mg Patch.7d) 1 patch T-DERMAL Q7D [facility] Last Admin: 11/01/17 15:27 Dose: 1 patch Famotidine (Pepcid Pf Inj) 20 mg IV.PUSH Q24H [facility] Last Admin: 11/02/17 16:02 Dose: 20 mg Acetaminophen (Ofirmev Inj) 1,000 mg in 100 mls @ 400 mls/hr IV.SIG Q8H PRN PRN Reason: PAIN SCALE 1 TO 10 Sodium Chloride 11 meq/ Sodium Acetate 59 meq/ Potassium Chloride 40 meq/ Magnesium Chloride 10 meq/ Calcium Chloride 9 meq/ Multivitamins 10 ml/ Folic Acid 1 mg/ Amino Acids/Electrolytes/Dextrose 2,074.1437 mls @ 50.16 mls/hr IV.SIG Q24H [facility] Last Admin: 11/02/17 19:55 Dose: 50.16 mls/hr Labetalol HCl (Trandate Inj) 10 mg IV.PUSH Q1H PRN PRN Reason: SBP>160, DBP>90 Last Admin: 11/02/17 17:08 Dose: 10 mg Lactulose (Lactulose Liq) 30 ml PO DAILY PRN PRN Reason: SEVERE CONSITIPATION Miscellaneous (Pill Splitter) 1 each OTHER UNSCH PRN PRN Reason: SEE LABEL COMMENTS Ondansetron HCl (Zofran Odt) 4 mg PO Q6H PRN PRN Reason: NAUSEA OR VOMITING Last Admin: 11/02/17 00:20 Dose: 4 mg Patch Removal (Remove Old Patch) 1 each T-DERMAL Q7D [facility] Last Admin: 11/01/17 16:30 Dose: 1 each Senna/Docusate Sodium (Juany-Colace) 1 tab PO BID [facility] Last Admin: 11/02/17 20:16 Dose: Not Given Sennosides (Senokot) 17.2 mg PO Q12H PRN PRN Reason: Moderate Constipation Sodium Chloride (Ns Flush) 2 ml IV.FLUSH BID [facility] Last Admin: 11/02/17 20:17 Dose: 2 ml Sodium Chloride (Ns Flush) 2 ml IV.FLUSH UNSCH PRN PRN Reason: FLUSH AFTER USING IV ACCESS Allergies/Adverse Reactions: Allergies Allergy/AdvReac Type Severity Reaction Status Date / Time Influenza Virus Vaccines Allergy Severe HIVES Verified 11/02/17 13:37 lansoprazole Allergy Severe "SHUTS Verified 11/02/17 13:37 DOWN KINDEYS" meperidine Allergy Severe SYNCOPY Verified 11/02/17 13:37 penicillin G Allergy Severe Anaphylaxis Verified 11/02/17 13:37 tetanus toxoid, adsorbed Allergy Severe RESP Verified 11/02/17 13:37 DISTRESS Sulfa (Sulfonamide Allergy Mild Nausea Verified 11/02/17 13:37 Antibiotics) erythromycin base Allergy Unknown Nausea Verified 10/31/17 10:27 morphine Allergy Unknown Nausea Verified 10/31/17 10:27 nitroglycerin Allergy Unknown Nausea Verified 10/31/17 10:27 prochlorperazine Allergy Unknown Nausea Verified 10/31/17 10:27 tetanus immune globulin Allergy Unknown Nausea Verified 10/31/17 10:27 atenolol AdvReac Severe Nightmare Verified 11/02/17 13:38 EES AdvReac Mild Nausea Uncoded 10/31/17 10:27 Physical Exam Vital signs: Vital Signs 11/02/17 08:15 11/02/17 10:00 11/02/17 12:00 Temperature 98.0 F Pulse Rate 119 H 104 H 111 H Respiratory Rate 19 Blood Pressure 133/58 L Pulse Oximetry 94 L 95 11/02/17 14:00 11/02/17 16:00 11/02/17 17:03 Temperature 98.0 F Pulse Rate 100 H 111 H Respiratory Rate Blood Pressure 133/58 L Pulse Oximetry 95 95 11/02/17 18:00 11/02/17 20:00 11/02/17 22:00 Temperature 98.4 F Pulse Rate 97 H 89 70 Respiratory Rate Blood Pressure 130/72 Pulse Oximetry 94 L 11/03/17 00:00 11/03/17 02:00 11/03/17 04:00 Temperature 98.0 F 97.8 F Pulse Rate 96 H 96 H 96 H Respiratory Rate Blood Pressure 153/70 H 136/68 Pulse Oximetry 24 L 23 L 11/03/17 06:00 Temperature Pulse Rate 94 H Respiratory Rate Blood Pressure Pulse Oximetry Intake & Output 11/02/17 11/03/17 11/03/17 18:59 06:59 18:59 Intake Total 1545 / 1545 Output Total 100 / 100 Balance 1445 / 1445 Weight 63.8 kg Intake: IV 1545 / 1545 Cardene Inj 50 MG In NS Inj 230 500 / 500 ML @ 5 MG/HR 25 mls/hr IV.CONT TITRATE PRN Rx#:[id number] LR 1000 mL Inj 1,000 ML @ Wide 1000 / 1000 Open IV.SIG BOLUS ONE Rx#: [id number] Oral 0 / 0 Output: Urine 100 / 100 Other: # Voids 2 4 Date of Last Bowel Movement 11/02/17 11/02/17 Narrative: r droop speech less clear not aphasic still moving rue and rle same but slower to initiate inc rr - Urinary Catheter Management Indwelling Urethral Catheter Cath placed during this visit: yes, but has since been removed by the nurse Reason for continuing: Decision to DC catheter Insertion date: 10/31/17 Removal date: 11/01/17 Removal time: 15:00 Objective Laboratory Results - last 24 hr 11/02/17 11/03/17 11/03/17 04:13 03:17 03:17 WBC 22.4 H RBC 4.42 Hgb 13.5 Hct 41.9 MCV 94.8 MCH 30.5 MCHC 32.2 RDW 14.9 Plt Count 332 MPV 7.7 Prelim Diff (Auto) Slide review pending Neut % (Auto) 93.3 H Lymph % (Auto) 2.5 L Craven % (Auto) 4.2 Eos % (Auto) 0.0 Baso % (Auto) 0.0 Neut # (Auto) 20.9 H Lymph # (Auto) 0.6 L Craven # (Auto) 0.9 Eos # (Auto) 0.0 Baso # (Auto) 0.0 WBC Differential Manual diff final Seg Neuts % (Manual) 49 Band Neuts % (Manual) 37 H Lymphocytes % (Manual) 4 L Monocytes % (Manual) 3 Metamyelocytes % (Man) 7 H Abs Neuts (Manual) 20.8 H Differential Comment . Platelet Estimate Normal Platelet Morphology Normal RBC Morphology Normal Sodium 142 Potassium 4.4 Chloride 113 H Carbon Dioxide 18.4 L Anion Gap 11 BUN 57 H Creatinine 2.00 H Estimated GFR 24 L Random Glucose 114 H Calcium 8.3 L Phosphorus 3.2 Magnesium 2.1 Total Bilirubin 1.2 H AST 107 H ALT 67 H Alkaline Phosphatase 72 Total Protein 6.4 Albumin 3.0 L Triglycerides 179 H Cholesterol 172 LDL Cholesterol, Calc 88 HDL Cholesterol 47.8 Cholesterol/HDL Ratio 3.59 Review/Management - Review/Management Plan: imp afib some hemorrhagic component from r mca 2 cva probably occurred in last 2 months with some falls tiny on mri left mca cortical infarct must be slightly larger than mri shows 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 -11/03/17 echo mod mr looks worse this am and some sob check cxr abg and mri brain i dw med team Daily Summary: imp left mca and some r parietal some ich asa for now swallow eval
[2017-11-03 08:12] LABS: ABG Base Excess -5.3 mmol/L (-2-2); ABG PCO2 29 mmHg (38-42); ABG PO2 62 mmHg (61-120)
[2017-11-03 10:43] LABS: Creatinine,Urine Random 145 mg/dL (27-300)
--- NOTE | 2017-11-03 10:55 | P.DIET ---
Nutritional Evaluation Type of nutrition evaluation: initial Nutrition consult regarding: TPN/PPN (New PPN found on TPN/PPN report) Subjective Subjective Comments: Pt refused a Dobbhoff and NG-T. Objective - Diagnosis Strole Alert/TPA - Objective % IBW: 104 (IBW = 135#) Body Weight Used for Calculations: Actual (63.8 kg) Energy Needs - Lower Range (kCal/kg): 25 Energy Needs - Upper Range (kCal/kg): 30 Lower Limit kCal/kg (kCals): 1,595 Upper Limit kCal/kg (kCals): 1,914 Lower Limit Protein Factor (Grams per Kg): 1.0 Upper Limit Protein Factor (Grams per Kg): 1.3 Lower Protein Needs (Protein): 64 Upper Protein Needs (Protein): 83 Fluid Factor (ml/kg): 30 Estimated Fluid Needs (ml): 1,914 Dietitian Reviewed in Medical Record: Current diet, Curent medications, Intake & Output, Labs, Medical history, TPN/PPN Speech Therapy Recommendations: Yes Objective Comments: Labs: BUN/craet 57/2.00, Est GFR 24, glu 114, LFTs elev, TG 179, HgA1c pending Feeding - Current TPN/PPN Current PPN: Clinimix 4.25/5 (Renal Formula) Current TPN/PPN Rate (ml/hr): 50 Amino Acid and Dextrose Current kCals Provided: 408 Amino Acid and Dextrose Current Protein Provided: 51 Current TPN/PPN/Lipids Comments: Lipids are recommended when giving PPN. Assessment Assessment: Pt receiving PPN as above, however, she has passed her swallow eval today and diet was just advanced to a regular Heart Healthy diet. Recommend d/c PPN and encourage po intake. Recommendations: 1. D/C PN 2. Please record % of meal eaten in EMR Dietitian to Monitor: Lab values, Intake & Output, Diet tolerance, Weight change , PO Intake, Swallow recommendations, Medical course
--- NOTE | 2017-11-03 11:20 | XR ---
EXAM DATE: 11/03/2017 11:01 AM EDT AGE/SEX: 87 years / Female INDICATIONS: Short of breath. CLINICAL DATA: This is the patient's initial encounter. Patient reports that signs and symptoms have been present for 3 days and indicates a pain score of Nonresponsive. MEDICAL/SURGICAL HISTORY: Non-responsive. Non-responsive. COMPARISON: [facility] – [place], CHEST 1V SINGLE AP, 10/31/2017. . FINDINGS: There are bilateral effusions, and interstitial prominence in the mid to lower lung zones now identif ied. Lower lobe consolidation bilaterally. Cardiomegaly. Osseous structures are intact. CONCLUSION: Worsening appearance of the chest. Electronically signed by: Osito Hinds MD 11/03/2017 11:18 AM EDT
[2017-11-03] MEDS: Aspirin 300 MG Supp RECTAL SCH (12:34)
[2017-11-03] MEDS: Senna/Docusate Sodium 8.6/50 MG Tablet PO SCH ×2 (12:34→21:17)
[2017-11-03] MEDS: Sod Chloride 0.9% Inj 1,000 ML IV.CONT SCH (12:36)
--- NOTE | 2017-11-03 13:24 | MR ---
EXAM DATE: 11/03/2017 12:55 PM EDT AGE/SEX: 87 years / Female INDICATIONS: CVA. CLINICAL DATA: This is the patient's initial encounter. Patient reports that signs and symptoms have been present for 2 days and indicates a pain score of 0/10. MEDICAL/SURGICAL HISTORY: Diabetes mellitus type II. Hypertension. Hysterectomy. [place]PARISON: [facility] [place] W & W/O CONTRAST, 10/31/2017. . TECHNIQUE: Multiplanar, multisequence examination of the brain was performed without contrast. FINDINGS: The craniocervical junction and midline structures are unremarkable. There is continued evolution of the large infarct in the posterior right temporal lobe with evidence of hemorrhage on the gradient e cho images with a smaller ischemic infarct in the right frontal region. Diffusion-weighted images dem onstrate restricted diffusion in the temporal lobe as well as a second area of infarct in the posteri or left frontal region in a cortical distribution. There has been no significant change when compared to the prior exam. Posterior fossa structures are unremarkable. There is periventricular hyperinten sity on the T2 weighted images consistent with small vessel vascular disease significantly more than expected in a patient of this age. CONCLUSION: Continued evolution of the bilateral infarcts most prominent in the posterior right temporal lobe wit h small volume hemorrhage. There is no significant mass effect. No acute infarct is identified. Electronically signed by: Bautista Penny MD 11/03/2017 1:22 PM EDT
[2017-11-03] MEDS: Famotidine PF Inj 20 MG/2 ML Vial IV.PUSH SCH (16:55)
[2017-11-03 18:32] LABS: Hemoglobin A1c 4.9 % (4.3-6.0)
--- NOTE | 2017-11-04 05:03 | XR ---
EXAM DATE: 11/04/2017 4:50 AM EDT AGE/SEX: 87 years / Female INDICATIONS: Shortness of breath. CLINICAL DATA: This is the patient's subsequent encounter. Patient reports that signs and symptoms h ave been present for 4 - 6 days and indicates a pain score of Nonresponsive. MEDICAL/SURGICAL HISTORY: Non-responsive. Non-responsive. COMPARISON: [facility] – [place], CHEST 1V SINGLE AP, 11/03/2017. . FINDINGS: A single AP semierect view of the chest was obtained and demonstrates increased opacity throughout th e right lung. More consolidative opacity remains at the right lung base with blunting the costophreni c angle. The left costophrenic angle remains blunted as well. There is mild hazy airspace disease in the left lung is well. This is not significantly changed. The heart size remains enlarged. Atheroscle rotic changes are present in the aorta. There are multiple overlying electrocardiogram leads. CONCLUSION: 1. Increasing opacity in the right lung which may represent posterior layering effusion. 2. Stable hazy opacity in the left lung. 3. The findings remain most characteristic of congestive heart failure. Electronically signed by: Seth Eddy MD 11/04/2017 5:02 AM EDT
[2017-11-04 06:23] LABS: Alanine Aminotransferase 64 U/L (10-53); Albumin 2.3 g/dL (3.4-5.0); Alkaline Phosphatase 74 U/L (45-117); Anion Gap 11 meq/L (5-15); Aspartate Aminotransferase 87 U/L (15-37); Blood Urea Nitrogen 61 mg/dL (7-18); Calcium 8.6 mg/dL (8.5-10.1); Carbon Dioxide 21.5 meq/L (21.0-32.0); Chloride 113 meq/L (98-107); Glomerular Filtration Rate 35 mL/min (>89); Glucose,Random 102 mg/dL (74-106); Potassium 3.8 meq/L (3.5-5.1); Sodium 145 meq/L (136-145); Total Protein 5.8 g/dL (6.4-8.2)
[2017-11-04] MEDS: Chlorhexidine Gluconate 2% 1 Pack (2 Cloths) TOPICAL SCH (08:15)
--- NOTE | 2017-11-04 08:17 | P.PNNEU ---
Subjective Active Medications: Active Medications Acetaminophen (Tylenol) 650 mg PO Q6H PRN PRN Reason: PAIN 1-10 AND/OR FEVER >101F Al Hydroxide/Mg Hydroxide (Milk Of Rafia Linneka) 30 ml PO Q12H PRN PRN Reason: Mild Constipation Albuterol (Albuterol Neb (Prn)) 2.5 mg NEB Q2HR NEB PRN PRN Reason: WHEEZING Last Admin: 11/02/17 08:15 Dose: 2.5 mg Albuterol (Duoneb Neb (Prn)) 1 ampul NEB Q4HR NEB PRN PRN Reason: SHORTNESS OF BREATH Aspirin (Aspirin Supp) 300 mg RECTAL DAILY [facility] Last Admin: 11/03/17 12:34 Dose: Not Given Bisacodyl (Dulcolax Supp) 10 mg RECTAL DAILY PRN PRN Reason: SEVERE CONSITIPATION Chlorhexidine Gluconate (Chlorhexidine 2% Cloth) 3 pack TOPICAL DAILY@0400 [facility] Stop: 11/06/17 03:59 Last Admin: 11/03/17 07:33 Dose: Not Given Chlorhexidine Gluconate (Chlorhexidine 2% Cloth) 3 pack TOPICAL DAILY@0400 PRN PRN Reason: Extra cloth needed Stop: 11/06/17 03:59 Clonidine HCl (Catapress-Tts 0.2 Mg Patch.7d) 1 patch T-DERMAL Q7D [facility] Last Admin: 11/01/17 15:27 Dose: 1 patch Famotidine (Pepcid Pf Inj) 20 mg IV.PUSH Q24H [facility] Last Admin: 11/03/17 16:55 Dose: 20 mg Acetaminophen (Ofirmev Inj) 1,000 mg in 100 mls @ 400 mls/hr IV.SIG Q8H PRN PRN Reason: PAIN SCALE 1 TO 10 Sodium Chloride 11 meq/ Sodium Acetate 59 meq/ Potassium Chloride 40 meq/ Magnesium Chloride 10 meq/ Calcium Chloride 9 meq/ Multivitamins 10 ml/ Folic Acid 1 mg/ Amino Acids/Electrolytes/Dextrose 2,074.1437 mls @ 50.16 mls/hr IV.SIG Q24H [facility] Last Infusion: 11/03/17 18:18 Dose: 0 mls/hr Sodium Chloride 5.5 meq/Sodium Acetate 29.5 meq/Potassium Chloride 20 meq/ Magnesium Chloride 5 meq/Calcium Chloride 4.5 meq/Multivitamins 5 ml/ Folic Acid 0.5 mg/ Amino Acids/Electrolytes/Dextrose 1,037.0719 mls @ 50 mls/hr IV.SIG Q20H [facility] Labetalol HCl (Trandate Inj) 10 mg IV.PUSH Q1H PRN PRN Reason: SBP>160, DBP>90 Last Admin: 11/02/17 17:08 Dose: 10 mg Lactulose (Lactulose Liq) 30 ml PO DAILY PRN PRN Reason: SEVERE CONSITIPATION Miscellaneous (Pill Splitter) 1 each OTHER UNSCH PRN PRN Reason: SEE LABEL COMMENTS Ondansetron HCl (Zofran Odt) 4 mg PO Q6H PRN PRN Reason: NAUSEA OR VOMITING Last Admin: 11/02/17 00:20 Dose: 4 mg Patch Removal (Remove Old Patch) 1 each T-DERMAL Q7D [facility] Last Admin: 11/01/17 16:30 Dose: 1 each Senna/Docusate Sodium (Juany-Colace) 1 tab PO BID [facility] Last Admin: 11/03/17 21:17 Dose: 1 tab Sennosides (Senokot) 17.2 mg PO Q12H PRN PRN Reason: Moderate Constipation Sodium Chloride (Ns Flush) 2 ml IV.FLUSH BID [facility] Last Admin: 11/03/17 21:18 Dose: 2 ml Sodium Chloride (Ns Flush) 2 ml IV.FLUSH UNSCH PRN PRN Reason: FLUSH AFTER USING IV ACCESS Allergies/Adverse Reactions: Allergies Allergy/AdvReac Type Severity Reaction Status Date / Time Influenza Virus Vaccines Allergy Severe HIVES Verified 11/02/17 13:37 lansoprazole Allergy Severe "SHUTS Verified 11/02/17 13:37 DOWN KINDEYS" meperidine Allergy Severe SYNCOPY Verified 11/02/17 13:37 penicillin G Allergy Severe Anaphylaxis Verified 11/02/17 13:37 tetanus toxoid, adsorbed Allergy Severe RESP Verified 11/02/17 13:37 DISTRESS Sulfa (Sulfonamide Allergy Mild Nausea Verified 11/02/17 13:37 Antibiotics) erythromycin base Allergy Unknown Nausea Verified 10/31/17 10:27 morphine Allergy Unknown Nausea Verified 10/31/17 10:27 nitroglycerin Allergy Unknown Nausea Verified 10/31/17 10:27 prochlorperazine Allergy Unknown Nausea Verified 10/31/17 10:27 tetanus immune globulin Allergy Unknown Nausea Verified 10/31/17 10:27 atenolol AdvReac Severe Nightmare Verified 11/02/17 13:38 EES AdvReac Mild Nausea Uncoded 10/31/17 10:27 Physical Exam Vital signs: Vital Signs 11/03/17 10:00 11/03/17 11:31 11/03/17 12:00 Temperature 98.8 F Pulse Rate 100 H 102 H Respiratory Rate 28 H Blood Pressure 147/68 H Pulse Oximetry 95 95 11/03/17 14:00 11/03/17 16:00 11/03/17 18:00 Temperature 98.9 F Pulse Rate 106 H 104 H 93 H Respiratory Rate 24 Blood Pressure 162/67 H Pulse Oximetry 95 11/03/17 19:44 11/03/17 20:00 11/03/17 22:00 Temperature 98.7 F Pulse Rate 110 H 110 H Respiratory Rate Blood Pressure 160/65 H Pulse Oximetry 95 99 11/04/17 00:00 11/04/17 02:00 11/04/17 04:00 Temperature 98.0 F Pulse Rate 93 H 93 H 112 H Respiratory Rate 22 Blood Pressure 154/76 H Pulse Oximetry 99 11/04/17 06:00 11/04/17 08:05 Temperature Pulse Rate 112 H Respiratory Rate Blood Pressure Pulse Oximetry 98 Intake & Output 11/03/17 11/04/17 11/04/17 18:59 06:59 18:59 Intake Total 1240 / 1240 240 / 240 Output Total 300 / 300 300 / 300 Balance 940 / 940 -60 / -60 Weight 63.8 kg Intake: IV 1000 / 1000 NS Inj 1,000 ML @ 84 mls/hr IV. 1000 / 1000 CONT .[id number] [facility] Rx#:[id number] Oral 240 / 240 240 / 240 Water Bolus Amount 0 / 0 Output: Urine 300 / 300 300 / 300 Other: # Voids 3 3 # Urine Diapers 0 Date of Last Bowel Movement 11/03/17 11/03/17 # Bowel Movements 1 1 Narrative: less sob r droop voice stronger and rue and rle back to baseline - Urinary Catheter Management Indwelling Urethral Catheter Cath placed during this visit: yes, but has since been removed by the nurse Reason for continuing: Decision to DC catheter Insertion date: 10/31/17 Removal date: 11/01/17 Removal time: 15:00 Objective Laboratory Results - last 24 hr 11/03/17 11/03/17 11/03/17 03:17 08:30 08:30 Sodium Potassium Chloride Carbon Dioxide Anion Gap BUN Creatinine Estimated GFR Random Glucose Hemoglobin A1c 4.9 Calcium Total Bilirubin AST ALT Alkaline Phosphatase Total Protein Albumin Urine Eosinophils None seen Ur Random Creatinine 145 Ur Random Sodium 18 11/04/17 05:25 Sodium 145 Potassium 3.8 Chloride 113 H Carbon Dioxide 21.5 Anion Gap 11 BUN 61 H Creatinine 1.42 H Estimated GFR 35 L Random Glucose 102 Hemoglobin A1c Calcium 8.6 Total Bilirubin 0.9 AST 87 H ALT 64 H Alkaline Phosphatase 74 Total Protein 5.8 L D Albumin 2.3 L D Urine Eosinophils Ur Random Creatinine Ur Random Sodium Review/Management - Review/Management Plan: imp afib some hemorrhagic component from r mca 2 cva probably occurred in last 2 months with some falls tiny on mri left mca cortical infarct must be slightly larger than mri shows 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 -11/03/17 echo mod mr looks worse this am and some sob check cxr abg and mri brain i dw med team 11/04/17 no new cva cxr chf still i dw med team doing better today sx mr mod chf afib will need to fu cards at some point Daily Summary: imp left mca and some r parietal some ich asa for now swallow eval
[2017-11-04] MEDS: Aspirin 300 MG Supp RECTAL SCH (09:53)
[2017-11-04] MEDS: Senna/Docusate Sodium 8.6/50 MG Tablet PO SCH ×2 (09:54→22:15)
--- NOTE | 2017-11-04 10:08 | P.PN ---
Physical Exam Vital signs: Vital Signs 11/03/17 11:31 11/03/17 12:00 11/03/17 14:00 Temperature 98.8 F Pulse Rate 102 H 106 H Respiratory Rate 28 H Blood Pressure 147/68 H Pulse Oximetry 95 95 11/03/17 16:00 11/03/17 18:00 11/03/17 19:44 Temperature 98.9 F Pulse Rate 104 H 93 H Respiratory Rate 24 Blood Pressure 162/67 H Pulse Oximetry 95 95 11/03/17 20:00 11/03/17 22:00 11/04/17 00:00 Temperature 98.7 F Pulse Rate 110 H 110 H 93 H Respiratory Rate Blood Pressure 160/65 H Pulse Oximetry 99 11/04/17 02:00 11/04/17 04:00 11/04/17 06:00 Temperature 98.0 F Pulse Rate 93 H 112 H 112 H Respiratory Rate 22 Blood Pressure 154/76 H Pulse Oximetry 99 11/04/17 08:05 Temperature Pulse Rate Respiratory Rate Blood Pressure Pulse Oximetry 98 Intake & Output 11/03/17 11/04/17 11/04/17 18:59 06:59 18:59 Intake Total 1240 / 1240 240 / 240 1874.1437 / 1874.1437 Output Total 300 / 300 300 / 300 Balance 940 / 940 -60 / -60 1874.1437 / 1874.1437 Weight 63.8 kg Intake: IV 1000 / 1000 1874.1437 / 1874.1437 NS Inj 1,000 ML @ 84 mls/hr IV. 1000 / 1000 CONT .[id number] [facility] Rx#:[id number] Oral 240 / 240 240 / 240 Water Bolus Amount 0 / 0 Output: Urine 300 / 300 300 / 300 Other: # Voids 3 3 # Urine Diapers 0 Date of Last Bowel Movement 11/03/17 11/03/17 # Bowel Movements 1 1 Narrative: Subjective Subjective Remarks/Hospital Course: This otherwise healthy 87-year-old woman developed difficulty with speech and a weak right side while eating breakfast this morning. She was brought to the emergency department where she ruled in as a stroke alert and after evaluation by Dr. Lozoya from neurology she received TPA. In the emergency department her right sided deficit was quite dense and her speech difficulties were pronounced. Both difficulties improved modestly at first and at that point she has been transported to the [facility]. Blood pressure control has been obtained with intravenous Cardene infusion. She developed some gastric retching and a worse headache, MRI and repeat CT indicate an area of possible bleeding posteriorly in the parietal region however the woman remains clearly improved from prior to the TPA. 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 She has a good sense of humor and asks appropriate questions. She can raise her right arm above gravity but the hand grasp remains weak. The patient has expressed quite clearly to me that she would not want any therapy that would involve ventilators or surgery. Although she is doing well at this time she would like us to continue full care but she prefers to be DNR status. 11/01: She is alert and oriented. Speech is modestly slurred. Her right sided extremity strength has improved. She has a pronounced right facial droop. She failed her swallow evaluation. Started on Catapres patch and intravenous labetalol and attempt to wean off the Cardene. She will eventually need an NG tube or Dobbhoff. SUBJECTIVE: 11/02: Remains on Nicardipine drip at 10 mg an hour. Failed swallow evaluation. Refusing Dobbhoff or NG tube. Will start TPN and switch to clevidipine drip. Right upper extremity with positive pronator drip and significant discoordination with facial droop right-sided 11/03: Currently off all antihypertensive infusions. Right upper extremity remains flaccid on my exam. Expressive aphasia persist according to nurse stable to slightly worsened overnight. 11/04/17 the patient is in bed she complains of pain in her belly. Daughter at bedside. Patient says she takes milk and sometimes Tums at home and that helps a lot. She has chronic abdominal pain. Is noted however with abdominal distention. Will do KUB. Will ask GI for consult. Patient does not have a GI doctor. She also says she has a history of multiple stomach ulcers. She is not vomiting blood. Had a diarrhea in the morning and normal color no blood in it. No fever or chills. Head: Atraumatic and normocephalic Neck: Supple, airway widely patent, no problems swallowing secretions. Lungs: Clear bilaterally without wheezes or crackles, comfortable respiratory pattern. Heart: Irregular regular rhythm rate controlled no jugular venous distention. Abdomen: Decreased bowel sounds, abdomen disease is distended and hyperresonant to percussion, diffusely tender to palpation. Extremities: Warm, well-perfused Neuro: Right arm remains with 1/5 power and right leg considerably 2-3/5. Discoordination right upper extremity. Right facial droop improved. Expressive aphasia persistent. Alert. Assessment and Plan - Assessment and Plan Plan: GI: With abdominal pain and distention. History of stomach ulcers per patient and family KUB ordered shows gas no other abnormality. Plan for CT with and without contrast abdomen this patient with persistent pain. Also consulted GI appreciate recommendations Pantoprazole IV 1 dose 40 mg. Times Neuro/Psych: Left MCA CVA/right parietal CVA subacute MRI brain on admission revealed changes in the right frontal/posterior parietal right parietal regions possibly subacute ischemia. CTA head and neck showed atherosclerotic vessels with no significant stenosis CT brain 11/01 shows infarct and residual secondary hemorrhage along posterior parietal occipital mid convexities a Followed by Dr. Lozoya/neurology Continue aspirin 3 mg per rectum daily Start lipid lowering agent when able to swallow. Status post alteplase CV: Hypertensive emergency Home medications verapamil unknown dosage daily. Unable to take his n.p.o. Off nicardipine infusion Labetalol 10 mg IV every 2 hours as needed Troponin 0 0.08 on admission. Started on Catapres patch 0.2 mg weekly on 10/31 Resp: Acute hypoxic insufficiency Nasal cannula per stroke protocol. Currently on 2 L Incentive spirometry while awake Follow-up chest x-ray in a.m. GI: Hypoalbuminemia Failed swallow evaluation. Refuses Dobbhoff or NG tube. Daughter at bedside Started PPN at 50 cc an hour. Dulcolax suppository daily for bowel regimen Famotidine 20 mg daily for GI prophylaxis : No Ye catheter Endo: Sliding scale insulin to maintain euglycemia. Renal: Acute kidney injury Received 1 dose of furosemide Currently on normal saline 84-DC while PPN going Heme: Leukocytosis Monitor CBC daily. Follow trends. Check UA again ID: Monitor for signs and symptomatology infection CBC MSK: PT/OT evaluate and treat FEN: Hyponatremia Replace electrolytes as clinically indicated Access -Utilize peripheral IV. Central line if indicated Prophylaxis -GI -famotidine -DVT -SCD/holding pharmacological prophylaxis status post intracranial hemorrhage Code Status: DNR Discussed with the patient, family at bedside daughter, ICU nurse Transfer to neuro floor when okay with neurology. - Urinary Catheter Management Indwelling Urethral Catheter Cath placed during this visit: yes, but has since been removed by the nurse Reason for continuing: Decision to DC catheter Insertion date: 10/31/17 Removal date: 11/01/17 Removal time: 15:00 Results - Labs CBC & Chem 7: 11/04/17 12:28 11/04/17 05:25 Laboratory Results - last 24 hr 11/03/17 11/03/17 11/03/17 03:17 08:30 08:30 Sodium Potassium Chloride Carbon Dioxide Anion Gap BUN Creatinine Estimated GFR Random Glucose Hemoglobin A1c 4.9 Calcium Total Bilirubin AST ALT Alkaline Phosphatase Total Protein Albumin Urine Eosinophils None seen Ur Random Creatinine 145 Ur Random Sodium 18 11/04/17 05:25 Sodium 145 Potassium 3.8 Chloride 113 H Carbon Dioxide 21.5 Anion Gap 11 BUN 61 H Creatinine 1.42 H Estimated GFR 35 L Random Glucose 102 Hemoglobin A1c Calcium 8.6 Total Bilirubin 0.9 AST 87 H ALT 64 H Alkaline Phosphatase 74 Total Protein 5.8 L D Albumin 2.3 L D Urine Eosinophils Ur Random Creatinine Ur Random Sodium - Imaging Impressions Chest X-Ray 11/03/17 00:00 CONCLUSION: Worsening appearance of the chest. Head MRI 11/03/17 00:00 CONCLUSION: Continued evolution of the bilateral infarcts most prominent in the posterior right temporal lobe with small volume hemorrhage. There is no significant mass effect. No acute infarct is identified. Chest X-Ray 11/04/17 06:00 CONCLUSION: 1. Increasing opacity in the right lung which may represent posterior layering effusion. 2. Stable hazy opacity in the left lung. 3. The findings remain most characteristic of congestive heart failure.
[2017-11-04] MEDS ORDERED: Simethicone 125 MG Chew Tablet PO ONE (13:15)
[2017-11-04] MEDS ORDERED: Simethicone 125 MG Chew Tablet PO PRN (13:15)
[2017-11-04 13:16] LABS: Hematocrit 46.3 % (35.0-46.0); Hemoglobin 15.4 gm/dL (11.6-15.3); Mean Corpuscular HGB Conc 33.3 % (32.0-36.0); Mean Corpuscular Hemoglobin 31.8 pg (27.0-34.0); Mean Corpuscular Volume 95.4 fL (80.0-100.0); Mean Platelet Volume 8.2 fL (7.0-11.0); Platelet Count 387 th/mm3 (150-450); Red Blood Count 4.85 mil/mm3 (4.00-5.30); Red Cell Distribution Width 14.7 % (11.6-17.2); White Blood Count 18.6 th/mm3 (4.0-11.0)
[2017-11-04] MEDS: Pantoprazole Inj 40 MG Vial IV.PUSH ONE ×2 (13:57→14:05)
--- NOTE | 2017-11-04 14:16 | XR ---
EXAM DATE: 11/04/2017 2:05 PM EDT AGE/SEX: 87 years / Female INDICATIONS: Abdominal distention. CLINICAL DATA: This is the patient's subsequent encounter. Patient reports that signs and symptoms h ave been present for 1 day and indicates a pain score of Nonresponsive. MEDICAL/SURGICAL HISTORY: Non-responsive. Non-responsive. COMPARISON: No prior exams available for comparison. FINDINGS: The abdominal bowel gas pattern reveals mild gaseous distention of small and large bowel. No abnorm al masses, calcifications, or organomegaly is seen. The osseous structures are unremarkable. CONCLUSION: Nonspecific bowel gas pattern with mild gaseous distention noted. Electronically signed by: Osito Hinds MD 11/04/2017 2:15 PM EDT
--- NOTE | 2017-11-04 15:40 | P.CONGI ---
History of Present Illness Consult date: 11/04/17 Consult reason: Abdominal pain Chief complaint: Stroke Alert/TPA History of Present Illness: This is a 87 yo F who was brought to the ER for difficultly with speech and right sided weakness, found to have a stroke and is now S/P TPA administered on October 31. Our service has been consulted to evaluate pt for abdominal pain. Pt reports abdominal pain has been intermittent for multiple years, states on the left side. She has been taking Tums with milk at home with some relief of this pain. Also reports nausea and emesis, has not had any emesis since admission but did have intermittent episodes of emesis at home. Denies hematemesis and coffee ground emesis. Patient states last night she began noticing her abdomen was distended and then today she began having severe abdominal pain. Pt had a large BM this morning, diarrhea. Has never had EGD. Last colonoscopy was multiple years ago and pt reports findings of 4 polyps. <Lindsey Donahue - Last Filed: 11/04/17 15:30> Review of Systems Gastrointestinal: Reports abdominal pain, Reports nausea, Reports vomiting <Lindsey Donahue - Last Filed: 11/04/17 15:30> PMFSH - History History Provided By: Family Member - Medical History Medical History: Medical History (Last Reviewed 11/04/17 @ 08:14 by Sangeeta Rivas, ACTIVITIES LEADER) Afib Brain aneurysm Heart murmur Hypertension Stroke TIA (transient ischemic attack) - Tobacco History Second Hand Smoke Exposure: No Tobacco Use In Past 30 Days: No Smoking Status: Never smoker Tobacco Type: Cigarettes - Alcohol History How Often Do You Have a Drink Containing Alcohol: Never - Substance Use History Substance History: No History of Abuse - Travel History Recent Travel in the [place] Within the Last 8 Weeks: No Recent Travel Out of the Country Within the Last 8 Weeks: No - Immunization History Hx Influenza Vaccine This Season: No <Lindsey Donahue - Last Filed: 11/04/17 15:30> - Medical History Medical History: Medical History (Last Reviewed 11/04/17 @ 08:14 by Sangeeta Rivas, ACTIVITIES LEADER) Afib Brain aneurysm Heart murmur Hypertension Stroke TIA (transient ischemic attack) <Jazmine Christy - Last Filed: 11/05/17 16:36> Medications and Allergies Active Medications: Active Medications Acetaminophen (Tylenol) 650 mg PO Q6H PRN PRN Reason: PAIN 1-10 AND/OR FEVER >101F Al Hydroxide/Mg Hydroxide (Milk Of Magnjanna Liq) 30 ml PO Q12H PRN PRN Reason: Mild Constipation Albuterol (Albuterol Neb (Prn)) 2.5 mg NEB Q2HR NEB PRN PRN Reason: WHEEZING Last Admin: 11/02/17 08:15 Dose: 2.5 mg Albuterol (Duoneb Neb (Prn)) 1 ampul NEB Q4HR NEB PRN PRN Reason: SHORTNESS OF BREATH Aspirin (Aspirin Supp) 300 mg RECTAL DAILY [facility] Last Admin: 11/04/17 09:53 Dose: 300 mg Bisacodyl (Dulcolax Supp) 10 mg RECTAL DAILY PRN PRN Reason: SEVERE CONSITIPATION Chlorhexidine Gluconate (Chlorhexidine 2% Cloth) 3 pack TOPICAL DAILY@0400 [facility] Stop: 11/06/17 03:59 Last Admin: 11/04/17 08:15 Dose: Not Given Chlorhexidine Gluconate (Chlorhexidine 2% Cloth) 3 pack TOPICAL DAILY@0400 PRN PRN Reason: Extra cloth needed Stop: 11/06/17 03:59 Clonidine HCl (Catapress-Tts 0.2 Mg Patch.7d) 1 patch T-DERMAL Q7D [facility] Last Admin: 11/01/17 15:27 Dose: 1 patch Famotidine (Pepcid Pf Inj) 20 mg IV.PUSH Q24H [facility] Last Admin: 11/03/17 16:55 Dose: 20 mg Furosemide (Lasix Inj) 40 mg IV.PUSH BID@0900,1800 [facility] Last Admin: 11/04/17 09:53 Dose: 40 mg Acetaminophen (Ofirmev Inj) 1,000 mg in 100 mls @ 400 mls/hr IV.SIG Q8H PRN PRN Reason: PAIN SCALE 1 TO 10 Sodium Chloride 5.5 meq/Sodium Acetate 29.5 meq/Potassium Chloride 20 meq/ Magnesium Chloride 5 meq/Calcium Chloride 4.5 meq/Multivitamins 5 ml/ Folic Acid 0.5 mg/ Amino Acids/Electrolytes/Dextrose 1,037.0719 mls @ 50 mls/hr IV.SIG Q20H [facility] Last Admin: 11/04/17 08:14 Dose: Not Given Labetalol HCl (Trandate Inj) 10 mg IV.PUSH Q1H PRN PRN Reason: SBP>160, DBP>90 Last Admin: 11/02/17 17:08 Dose: 10 mg Lactulose (Lactulose Liq) 30 ml PO DAILY PRN PRN Reason: SEVERE CONSITIPATION Miscellaneous (Pill Splitter) 1 each OTHER UNSCH PRN PRN Reason: SEE LABEL COMMENTS Ondansetron HCl (Zofran Odt) 4 mg PO Q6H PRN PRN Reason: NAUSEA OR VOMITING Last Admin: 11/02/17 00:20 Dose: 4 mg Patch Removal (Remove Old Patch) 1 each T-DERMAL Q7D [facility] Last Admin: 11/01/17 16:30 Dose: 1 each Potassium Chloride (K-Dur) 20 meq PO BID [facility] Last Admin: 11/04/17 09:54 Dose: 20 meq Senna/Docusate Sodium (Juany-Colace) 1 tab PO BID [facility] Last Admin: 11/04/17 09:54 Dose: 1 tab Sennosides (Senokot) 17.2 mg PO Q12H PRN PRN Reason: Moderate Constipation Simethicone (Phazyme Chew) 125 mg PO TID PRN PRN Reason: GAS RETENTION Sodium Chloride (Ns Flush) 2 ml IV.FLUSH BID [facility] Last Admin: 11/04/17 09:54 Dose: 2 ml Sodium Chloride (Ns Flush) 2 ml IV.FLUSH UNSCH PRN PRN Reason: FLUSH AFTER USING IV ACCESS <Lindsey Donahue - Last Filed: 11/04/17 15:30> Active Medications: Active Medications Acetaminophen (Tylenol) 650 mg PO Q6H PRN PRN Reason: PAIN 1-10 AND/OR FEVER >101F Al Hydroxide/Mg Hydroxide (Milk Of Magnesia Liq) 30 ml PO Q12H PRN PRN Reason: Mild Constipation Albuterol (Albuterol Neb (Prn)) 2.5 mg NEB Q2HR NEB PRN PRN Reason: WHEEZING Last Admin: 11/02/17 08:15 Dose: 2.5 mg Albuterol (Duoneb Neb (Prn)) 1 ampul NEB Q4HR NEB PRN PRN Reason: SHORTNESS OF BREATH Aspirin (Aspirin) 325 mg PO DAILY [facility] Atenolol (Tenormin) 12.5 mg PO BID [facility] Bisacodyl (Dulcolax Supp) 10 mg RECTAL DAILY PRN PRN Reason: SEVERE CONSITIPATION Chlorhexidine Gluconate (Chlorhexidine 2% Cloth) 3 pack TOPICAL DAILY@0400 [facility] Stop: 11/06/17 03:59 Last Admin: 11/05/17 08:32 Dose: Not Given Chlorhexidine Gluconate (Chlorhexidine 2% Cloth) 3 pack TOPICAL DAILY@0400 PRN PRN Reason: Extra cloth needed Stop: 11/06/17 03:59 Clonidine HCl (Catapress-Tts 0.2 Mg Patch.7d) 1 patch T-DERMAL Q7D [facility] Last Admin: 11/01/17 15:27 Dose: 1 patch Famotidine (Pepcid Pf Inj) 20 mg IV.PUSH Q24H [facility] Last Admin: 11/04/17 17:42 Dose: 20 mg Furosemide (Lasix Inj) 40 mg IV.PUSH BID@0900,1800 [facility] Last Admin: 11/05/17 10:53 Dose: 40 mg Acetaminophen (Ofirmev Inj) 1,000 mg in 100 mls @ 400 mls/hr IV.SIG Q8H PRN PRN Reason: PAIN SCALE 1 TO 10 Sodium Chloride 5.5 meq/Sodium Acetate 29.5 meq/Potassium Chloride 20 meq/ Magnesium Chloride 5 meq/Calcium Chloride 4.5 meq/Multivitamins 5 ml/ Folic Acid 0.5 mg/ Amino Acids/Electrolytes/Dextrose 1,037.0719 mls @ 50 mls/hr IV.SIG Q20H [facility] Last Infusion: 11/05/17 08:33 Dose: 50 mls/hr Metronidazole/Sodium Chloride (Flagyl 500 Mg Inj) 100 mls @ 100 mls/hr IV.SIG Q8H [facility] Levofloxacin/Dextrose (Levaquin 750 Mg Premix Inj) 150 mls @ 100 mls/hr IV.SIG Q48H [facility] Labetalol HCl (Trandate Inj) 10 mg IV.PUSH Q1H PRN PRN Reason: SBP>160, DBP>90 Last Admin: 11/04/17 16:17 Dose: 10 mg Lactulose (Lactulose Liq) 30 ml PO DAILY PRN PRN Reason: SEVERE CONSITIPATION Miscellaneous (Pill Splitter) 1 each OTHER UNSCH PRN PRN Reason: SEE LABEL COMMENTS Ondansetron HCl (Zofran Odt) 4 mg PO Q6H PRN PRN Reason: NAUSEA OR VOMITING Last Admin: 11/02/17 00:20 Dose: 4 mg Patch Removal (Remove Old Patch) 1 each T-DERMAL Q7D [facility] Last Admin: 11/01/17 16:30 Dose: 1 each Potassium Chloride (K-Dur) 20 meq PO BID [facility] Last Admin: 11/05/17 10:52 Dose: 20 meq Senna/Docusate Sodium (Juany-Colace) 1 tab PO BID [facility] Last Admin: 11/05/17 10:53 Dose: Not Given Sennosides (Senokot) 17.2 mg PO Q12H PRN PRN Reason: Moderate Constipation Simethicone (Phazyme Chew) 125 mg PO TID PRN PRN Reason: GAS RETENTION Sodium Chloride (Ns Flush) 2 ml IV.FLUSH BID [facility] Last Admin: 11/05/17 10:53 Dose: 2 ml Sodium Chloride (Ns Flush) 2 ml IV.FLUSH UNSCH PRN PRN Reason: FLUSH AFTER USING IV ACCESS <Jazmine Christy - Last Filed: 11/05/17 16:36> Allergies Allergy/AdvReac Type Severity Reaction Status Date / Time Influenza Virus Vaccines Allergy Severe HIVES Verified 11/02/17 13:37 lansoprazole Allergy Severe "SHUTS Verified 11/02/17 13:37 DOWN KINDEYS" meperidine Allergy Severe SYNCOPY Verified 11/02/17 13:37 penicillin G Allergy Severe Anaphylaxis Verified 11/02/17 13:37 tetanus toxoid, adsorbed Allergy Severe RESP Verified 11/02/17 13:37 DISTRESS Sulfa (Sulfonamide Allergy Mild Nausea Verified 11/02/17 13:37 Antibiotics) erythromycin base Allergy Unknown Nausea Verified 10/31/17 10:27 morphine Allergy Unknown Nausea Verified 10/31/17 10:27 nitroglycerin Allergy Unknown Nausea Verified 10/31/17 10:27 prochlorperazine Allergy Unknown Nausea Verified 10/31/17 10:27 tetanus immune globulin Allergy Unknown Nausea Verified 10/31/17 10:27 atenolol AdvReac Severe Nightmare Verified 11/02/17 13:38 EES AdvReac Mild Nausea Uncoded 10/31/17 10:27 Home Medications Medication Instructions Recorded Confirmed Type verapamil 11/02/17 History Exam Vital signs: Vital Signs 11/03/17 16:00 11/03/17 18:00 11/03/17 19:44 Temperature 98.9 F Pulse Rate 104 H 93 H Respiratory Rate 24 Blood Pressure 162/67 H Pulse Oximetry 95 95 11/03/17 20:00 11/03/17 22:00 11/04/17 00:00 Temperature 98.7 F Pulse Rate 110 H 110 H 93 H Respiratory Rate Blood Pressure 160/65 H Pulse Oximetry 99 11/04/17 02:00 11/04/17 04:00 11/04/17 06:00 Temperature 98.0 F Pulse Rate 93 H 112 H 112 H Respiratory Rate 22 Blood Pressure 154/76 H Pulse Oximetry 99 11/04/17 08:05 Temperature Pulse Rate Respiratory Rate Blood Pressure Pulse Oximetry 98 Intake & Output 11/03/17 11/04/17 11/04/17 18:59 06:59 18:59 Intake Total 1240 / 1240 240 / 240 1874.1437 / 1874.1437 Output Total 300 / 300 300 / 300 Balance 940 / 940 -60 / -60 1874.1437 / 1874.1437 Weight 63.8 kg Intake: IV 1000 / 1000 1874.1437 / 1874.1437 NS Inj 1,000 ML @ 84 mls/hr IV. 1000 / 1000 CONT .[id number] [facility] Rx#:[id number] Oral 240 / 240 240 / 240 Water Bolus Amount 0 / 0 Output: Urine 300 / 300 300 / 300 Other: # Voids 3 3 # Urine Diapers 0 Date of Last Bowel Movement 11/03/17 11/03/17 # Bowel Movements 1 1 - Constitutional no acute distress - Routine HEENT Exam Head: Present: normocephalic, atraumatic - Routine Respiratory Exam Absent: accessory muscle use - Routine Abdominal Exam Present: distended Comments: Abdominal exam deferred, pt in extreme pain and does not want abdomen palpated or touched <Lindsey Donahue - Last Filed: 11/04/17 15:30> Vital signs: Vital Signs 11/04/17 18:00 11/04/17 20:00 11/04/17 22:00 Temperature 97.9 F Pulse Rate 102 H 105 H 105 H Respiratory Rate Blood Pressure Pulse Oximetry 97 11/05/17 00:00 11/05/17 02:00 11/05/17 04:00 Temperature 97.8 F 98.1 F Pulse Rate 104 H 104 H 115 H Respiratory Rate 20 22 Blood Pressure 134/89 Pulse Oximetry 98 11/05/17 06:00 11/05/17 07:31 11/05/17 08:00 Temperature 98 F Pulse Rate 115 H 102 H Respiratory Rate 20 Blood Pressure 120/64 Pulse Oximetry 95 98 Intake & Output 11/04/17 11/05/17 11/05/17 18:59 06:59 18:59 Intake Total 2114.1437 / 2114.1437 Output Total 300 / 300 400 / 400 Balance 1814.1437 / 1814.1437 -400 / -400 Weight 63.1 kg Intake: IV 1874.1437 / 1874.1437 Oral 240 / 240 Output: Urine 300 / 300 400 / 400 Other: # Voids 5 # Incontinent Voids 3 Date of Last Bowel Movement 11/03/17 11/03/17 11/05/17 # Bowel Movements 3 3 # Incontinent Bowel Movements 3 <Jazmine Christy - Last Filed: 11/05/17 16:36> Results - Labs CBC & Chem 7: 11/04/17 12:28 11/04/17 05:25 Labs: Laboratory Results - last 24 hr 11/03/17 11/04/17 11/04/17 03:17 05:25 12:28 WBC 18.6 H RBC 4.85 Hgb 15.4 H Hct 46.3 H MCV 95.4 MCH 31.8 MCHC 33.3 RDW 14.7 Plt Count 387 MPV 8.2 Sodium 145 Potassium 3.8 Chloride 113 H Carbon Dioxide 21.5 Anion Gap 11 BUN 61 H Creatinine 1.42 H Estimated GFR 35 L Random Glucose 102 Hemoglobin A1c 4.9 Calcium 8.6 Total Bilirubin 0.9 AST 87 H ALT 64 H Alkaline Phosphatase 74 Total Protein 5.8 L D Albumin 2.3 L D - Imaging Impressions Chest X-Ray 11/04/17 06:00 CONCLUSION: 1. Increasing opacity in the right lung which may represent posterior layering effusion. 2. Stable hazy opacity in the left lung. 3. The findings remain most characteristic of congestive heart failure. Abdomen X-Ray 11/04/17 13:16 CONCLUSION: Nonspecific bowel gas pattern with mild gaseous distention noted. <Lindsey Donahue - Last Filed: 11/04/17 15:30> - Labs CBC & Chem 7: 11/04/17 12:28 11/04/17 05:25 Labs: Laboratory Results - last 24 hr 11/04/17 20:54 Stl C.difficile Tox PCR Cancelled St C. diff Tox Epid 027 Cancelled - Imaging Impressions Abdomen/Pelvis CT 11/04/17 14:42 CONCLUSION: 1. Mild mural thickening of the left colon most characteristic of a mild colitis. 2. Diffuse ileus of small and proximal large bowel. 3. Mild ascites. Moderate pleural effusions. Moderate anasarca. 4. Cardiomegaly with moderate coronary calcifications. 5. Numerous tiny hepatic cysts with periportal edema in the liver. <Jazmine Christy - Last Filed: 11/05/17 16:36> Assessment and Plan - Plan Assessment: - Abdominal pain- Pt reports intermittent abodminal pain for years, left sided, takes Tums with milks at home for attempt at relief. Noticed abdominal distention last night and then began having excruciating abdominal pain today, generalized over entire abdomen. Abdominal exam was deferred because pt does not want abdomen touched or palpated. - Nausea and vomiting- intermittent for a long time, no emesis since admission- denies hematemesis and coffee ground emesis Has never had EGD Last colonoscopy was multiple years ago and states findings of 4 polyps Plan: STAT CT abdomen and pelvis W IV and oral contrast Pain control Further recommendations to follow Pt has been seen and examined by myself and Dr. Christy and this note is written on his behalf <Lindsey Donahue - Last Filed: 11/04/17 15:30> - Plan Seen and examined with [employer], severe abdominal pain. STAT CT ordered. Does not want any invasive testing. refusing NGT. WIll follow. Thank you - Attending Attestation The exam, history, and the medical decision-making described in the above note were completed with the assistance of the mid-level provider. I reviewed and agree with the findings presented. I attest that I had a [id number] encounter with the patient on the same day, and personally performed and documented my assessment and findings in the medical record. <Jazmine Christy - Last Filed: 11/05/17 16:36>
[2017-11-04] MEDS: Labetalol HCl Inj 100 MG/20 ML Vial IV.PUSH PRN (16:17)
[2017-11-04] MEDS ORDERED: Diatrizoate Meglum/Diatrizoate Sod Liq 9 ML UDC PO ONE (16:23)
[2017-11-04] MEDS: Famotidine PF Inj 20 MG/2 ML Vial IV.PUSH SCH (17:42)
--- NOTE | 2017-11-04 20:16 | CT ---
EXAM DATE: 11/04/2017 8:08 PM EDT AGE/SEX: 87 years / Female INDICATIONS: Abdomen pain. CLINICAL DATA: This is the patient's initial encounter. Patient reports that signs and symptoms have been present for 1 day and indicates a pain score of 4/10. MEDICAL/SURGICAL HISTORY: Stroke. Hypertension. None. ORAL CONTRAST: No oral contrast ingested. RADIATION DOSE: 13.84 CTDI (mGy) COMPARISON: No prior exams available for comparison. TECHNIQUE: Multiple contiguous axial images were obtained through the abdomen and pelvis following b olus infusion of 50 ml Visipaque 320 (iodixanol) nonionic water-soluble contrast as a single exam d ose. No oral contrast ingested. Using automated exposure control and adjustment of the mA and/or kV according to patient size, radiation dose was kept as low as reasonably achievable to obtain optimal diagnostic quality images. DICOM format image data is available electronically for review and compar tanner. FINDINGS: Moderate size bilateral pleural effusions with compressive atelectasis. Cardiomegaly. There are tiny bilateral hepatic cysts. Splenic calcifications noted. Adrenals, kidneys and pancreas demonstrate no acute findings. Mild to moderate anasarca. There is some mild ascites within the abdomen and pelvis. There is a diffuse ileus. There is some mur al thickening of the left colon with mild pericolonic fat stranding most characteristic of a mild col itis. Transverse colon and right colon are mildly distended with air-fluid levels. No free air. CONCLUSION: 1. Mild mural thickening of the left colon most characteristic of a mild colitis. 2. Diffuse ileus of small and proximal large bowel. 3. Mild ascites. Moderate pleural effusions. Moderate anasarca. 4. Cardiomegaly with moderate coronary calcifications. 5. Numerous tiny hepatic cysts with periportal edema in the liver. Electronically signed by: Robert Gross MD 11/04/2017 8:15 PM EDT
[2017-11-05] MEDS: Chlorhexidine Gluconate 2% 1 Pack (2 Cloths) TOPICAL SCH (08:32)
--- NOTE | 2017-11-05 09:08 | P.PN ---
Physical Exam Vital signs: Vital Signs 11/04/17 10:00 11/04/17 12:00 11/04/17 14:00 Temperature 97.8 F Pulse Rate 116 H 112 H 110 H Respiratory Rate 27 H Blood Pressure 157/82 H Pulse Oximetry 99 11/04/17 16:00 11/04/17 18:00 11/04/17 20:00 Temperature 97.4 F L 97.9 F Pulse Rate 118 H 102 H 105 H Respiratory Rate 22 Blood Pressure 128/59 L Pulse Oximetry 99 97 11/04/17 22:00 11/05/17 00:00 11/05/17 02:00 Temperature 97.8 F Pulse Rate 105 H 104 H 104 H Respiratory Rate 20 Blood Pressure Pulse Oximetry 11/05/17 04:00 11/05/17 06:00 11/05/17 07:31 Temperature 98.1 F Pulse Rate 115 H 115 H Respiratory Rate 22 Blood Pressure 134/89 Pulse Oximetry 98 95 11/05/17 08:00 Temperature 98 F Pulse Rate 102 H Respiratory Rate 20 Blood Pressure 120/64 Pulse Oximetry 98 Intake & Output 11/04/17 11/05/17 11/05/17 18:59 06:59 18:59 Intake Total 2114.1437 / 2114.1437 Output Total 300 / 300 400 / 400 Balance 1814.1437 / 1814.1437 -400 / -400 Weight 63.1 kg Intake: IV 1874.1437 / 1874.1437 Oral 240 / 240 Output: Urine 300 / 300 400 / 400 Other: # Voids 5 # Incontinent Voids 3 Date of Last Bowel Movement 11/03/17 11/03/17 11/05/17 # Bowel Movements 3 3 # Incontinent Bowel Movements 3 Narrative: Subjective Subjective Remarks/Hospital Course: This otherwise healthy 87-year-old woman developed difficulty with speech and a weak right side while eating breakfast this morning. She was brought to the emergency department where she ruled in as a stroke alert and after evaluation by Dr. Lozoya from neurology she received TPA. In the emergency department her right sided deficit was quite dense and her speech difficulties were pronounced. Both difficulties improved modestly at first and at that point she has been transported to the [facility]. Blood pressure control has been obtained with intravenous Cardene infusion. She developed some gastric retching and a worse headache, MRI and repeat CT indicate an area of possible bleeding posteriorly in the parietal region however the woman remains clearly improved from prior to the TPA. Her speech and belt cutter are near normal, hampered only by her difficulty hearing. She has a good sense of humor and asks appropriate questions. She can raise her right arm above gravity but the hand grasp remains weak. The patient has expressed quite clearly to me that she would not want any therapy that would involve ventilators or surgery. Although she is doing well at this time she would like us to continue full care but she prefers to be DNR status. 11/01: She is alert and oriented. Speech is modestly slurred. Her right sided extremity strength has improved. She has a pronounced right facial droop. She failed her swallow evaluation. Started on Catapres patch and intravenous labetalol and attempt to wean off the Cardene. She will eventually need an NG tube or Dobbhoff. SUBJECTIVE: 11/02: Remains on Nicardipine drip at 10 mg an hour. Failed swallow evaluation. Refusing Dobbhoff or NG tube. Will start TPN and switch to clevidipine drip. Right upper extremity with positive pronator drip and significant discoordination with facial droop right-sided 11/03: Currently off all antihypertensive infusions. Right upper extremity remains flaccid on my exam. Expressive aphasia persist according to nurse stable to slightly worsened overnight. 11/04/17 the patient is in bed she complains of pain in her belly. Daughter at bedside. Patient says she takes milk and sometimes Tums at home and that helps a lot. She has chronic abdominal pain. Is noted however with abdominal distention. Will do KUB. Will ask GI for consult. Patient does not have a GI doctor. She also says she has a history of multiple stomach ulcers. She is not vomiting blood. Had a diarrhea in the morning and normal color no blood in it. No fever or chills. 11/05/17 patient had 3 bowel movements since yesterday. The bowel movements are formed no more diarrhea. C. difficile was not performed is no diarrhea. Still with significant abdominal pain however seems to improve. No fever or chills. No nausea or vomiting. Patient refusing endoscopic procedures. Physical exam: Head: Atraumatic and normocephalic Neck: Supple, airway widely patent, no problems swallowing secretions. Lungs: Clear bilaterally without wheezes or crackles, comfortable respiratory pattern. Heart: Irregular regular rhythm rate controlled no jugular venous distention. Abdomen: Decreased bowel sounds, abdomen is distended, diffusely tender to palpation. Extremities: Warm, well-perfused Neuro: Right arm remains with 1/5 power and right leg considerably 2-3/5. Discoordination right upper extremity. Right facial droop improved. Expressive aphasia improving some. Alert. Assessment and Plan - Assessment and Plan Plan: GI: With abdominal pain and distention. History of stomach ulcers per patient and family Mild colitis questionable if ischemic colitis Diffuse ileus of small and proximal large bowel KUB shows gas no other abnormality. CT with and without contrast abdomen reviewed; 1. Mild mural thickening of the left colon most characteristic of a mild colitis. 2. Diffuse ileus of small and proximal large bowel. 3. Mild ascites. Moderate pleural effusions. Moderate anasarca. 4. Cardiomegaly with moderate coronary calcifications. 5. Numerous tiny hepatic cysts with periportal edema in the liver. Also consulted GI appreciate recommendations C diff not able to perform as patient stool is forming Stool studies Started on IV antibiotics Flagyl and Levaquin Patient refusing endoscopic procedures PPIs Neuro/Psych: Left MCA CVA/right parietal CVA subacute MRI brain on admission revealed changes in the right frontal/posterior parietal right parietal regions possibly subacute ischemia. CTA head and neck showed atherosclerotic vessels with no significant stenosis CT brain 11/01 shows infarct and residual secondary hemorrhage along posterior parietal occipital mid convexities a Followed by Dr. Lozoya/neurology Continue aspirin 3 mg per rectum daily Start lipid lowering agent when able to swallow. Status post alteplase CV: Hypertensive emergency Home medications verapamil unknown dosage daily. Unable to take his n.p.o. Off nicardipine infusion Labetalol 10 mg IV every 2 hours as needed Troponin 0 0.08 on admission. Started on Catapres patch 0.2 mg weekly on 10/31 Resp: Acute hypoxic insufficiency Nasal cannula per stroke protocol. Currently on 2 L Incentive spirometry while awake Follow-up chest x-ray in a.m. GI: Hypoalbuminemia Failed swallow evaluation. Refuses Dobbhoff or NG tube. Daughter at bedside Started PPN at 50 cc an hour. Dulcolax suppository daily for bowel regimen Famotidine 20 mg daily for GI prophylaxis : No Ye catheter Endo: Sliding scale insulin to maintain euglycemia. Renal: Acute kidney injury Received 1 dose of furosemide Currently on normal saline 84-DC while PPN going Heme: Leukocytosis Monitor CBC daily. Follow trends. Check UA again ID: Monitor for signs and symptomatology infection CBC MSK: PT/OT evaluate and treat FEN: Hyponatremia Replace electrolytes as clinically indicated Access -Utilize peripheral IV. Central line if indicated Prophylaxis -GI -famotidine -DVT -SCD/holding pharmacological prophylaxis status post intracranial hemorrhage Code Status: DNR Discussed with the patient, family at bedside, ICU nurse, Dr Lozoya neurology Transfer to neuro floor when okay with neurology. - Urinary Catheter Management Indwelling Urethral Catheter Cath placed during this visit: yes, but has since been removed by the nurse Reason for continuing: Decision to DC catheter Insertion date: 10/31/17 Removal date: 11/01/17 Removal time: 15:00 Results - Labs CBC & Chem 7: 11/04/17 12:28 11/04/17 05:25 Laboratory Results - last 24 hr 11/04/17 11/04/17 12:28 20:54 WBC 18.6 H RBC 4.85 Hgb 15.4 H Hct 46.3 H MCV 95.4 MCH 31.8 MCHC 33.3 RDW 14.7 Plt Count 387 MPV 8.2 Stl C.difficile Tox PCR Cancelled St C. diff Tox Epid 027 Cancelled - Imaging Impressions Abdomen X-Ray 11/04/17 13:16 CONCLUSION: Nonspecific bowel gas pattern with mild gaseous distention noted. Abdomen/Pelvis CT 11/04/17 14:42 CONCLUSION: 1. Mild mural thickening of the left colon most characteristic of a mild colitis. 2. Diffuse ileus of small and proximal large bowel. 3. Mild ascites. Moderate pleural effusions. Moderate anasarca. 4. Cardiomegaly with moderate coronary calcifications. 5. Numerous tiny hepatic cysts with periportal edema in the liver.
[2017-11-05] MEDS: Senna/Docusate Sodium 8.6/50 MG Tablet PO SCH ×3 (10:12→20:17)
[2017-11-05] MEDS: Aspirin 325 MG Tablet PO ONE ×2 (10:13→10:53)
--- NOTE | 2017-11-05 11:05 | P.PNNEU ---
Subjective Subjective Comments: ileus Active Medications: Active Medications Acetaminophen (Tylenol) 650 mg PO Q6H PRN PRN Reason: PAIN 1-10 AND/OR FEVER >101F Al Hydroxide/Mg Hydroxide (Milk Of Magnjanna Liq) 30 ml PO Q12H PRN PRN Reason: Mild Constipation Albuterol (Albuterol Neb (Prn)) 2.5 mg NEB Q2HR NEB PRN PRN Reason: WHEEZING Last Admin: 11/02/17 08:15 Dose: 2.5 mg Albuterol (Duoneb Neb (Prn)) 1 ampul NEB Q4HR NEB PRN PRN Reason: SHORTNESS OF BREATH Aspirin (Aspirin) 325 mg PO DAILY [facility] Bisacodyl (Dulcolax Supp) 10 mg RECTAL DAILY PRN PRN Reason: SEVERE CONSITIPATION Chlorhexidine Gluconate (Chlorhexidine 2% Cloth) 3 pack TOPICAL DAILY@0400 [facility] Stop: 11/06/17 03:59 Last Admin: 11/05/17 08:32 Dose: Not Given Chlorhexidine Gluconate (Chlorhexidine 2% Cloth) 3 pack TOPICAL DAILY@0400 PRN PRN Reason: Extra cloth needed Stop: 11/06/17 03:59 Clonidine HCl (Catapress-Tts 0.2 Mg Patch.7d) 1 patch T-DERMAL Q7D [facility] Last Admin: 11/01/17 15:27 Dose: 1 patch Famotidine (Pepcid Pf Inj) 20 mg IV.PUSH Q24H [facility] Last Admin: 11/04/17 17:42 Dose: 20 mg Furosemide (Lasix Inj) 40 mg IV.PUSH BID@0900,1800 [facility] Last Admin: 11/05/17 10:53 Dose: 40 mg Acetaminophen (Ofirmev Inj) 1,000 mg in 100 mls @ 400 mls/hr IV.SIG Q8H PRN PRN Reason: PAIN SCALE 1 TO 10 Sodium Chloride 5.5 meq/Sodium Acetate 29.5 meq/Potassium Chloride 20 meq/ Magnesium Chloride 5 meq/Calcium Chloride 4.5 meq/Multivitamins 5 ml/ Folic Acid 0.5 mg/ Amino Acids/Electrolytes/Dextrose 1,037.0719 mls @ 50 mls/hr IV.SIG Q20H [facility] Last Infusion: 11/05/17 08:33 Dose: 50 mls/hr Labetalol HCl (Trandate Inj) 10 mg IV.PUSH Q1H PRN PRN Reason: SBP>160, DBP>90 Last Admin: 11/04/17 16:17 Dose: 10 mg Lactulose (Lactulose Liq) 30 ml PO DAILY PRN PRN Reason: SEVERE CONSITIPATION Miscellaneous (Pill Splitter) 1 each OTHER UNSCH PRN PRN Reason: SEE LABEL COMMENTS Ondansetron HCl (Zofran Odt) 4 mg PO Q6H PRN PRN Reason: NAUSEA OR VOMITING Last Admin: 11/02/17 00:20 Dose: 4 mg Patch Removal (Remove Old Patch) 1 each T-DERMAL Q7D [facility] Last Admin: 11/01/17 16:30 Dose: 1 each Potassium Chloride (K-Dur) 20 meq PO BID [facility] Last Admin: 11/05/17 10:52 Dose: 20 meq Senna/Docusate Sodium (Juany-Colace) 1 tab PO BID [facility] Last Admin: 11/05/17 10:53 Dose: Not Given Sennosides (Senokot) 17.2 mg PO Q12H PRN PRN Reason: Moderate Constipation Simethicone (Phazyme Chew) 125 mg PO TID PRN PRN Reason: GAS RETENTION Sodium Chloride (Ns Flush) 2 ml IV.FLUSH BID [facility] Last Admin: 11/05/17 10:53 Dose: 2 ml Sodium Chloride (Ns Flush) 2 ml IV.FLUSH UNSCH PRN PRN Reason: FLUSH AFTER USING IV ACCESS Verapamil HCl (Isoptin) 40 mg PO DAILY [facility] Allergies/Adverse Reactions: Allergies Allergy/AdvReac Type Severity Reaction Status Date / Time Influenza Virus Vaccines Allergy Severe HIVES Verified 11/02/17 13:37 lansoprazole Allergy Severe "SHUTS Verified 11/02/17 13:37 DOWN KINDEYS" meperidine Allergy Severe SYNCOPY Verified 11/02/17 13:37 penicillin G Allergy Severe Anaphylaxis Verified 11/02/17 13:37 tetanus toxoid, adsorbed Allergy Severe RESP Verified 11/02/17 13:37 DISTRESS Sulfa (Sulfonamide Allergy Mild Nausea Verified 11/02/17 13:37 Antibiotics) erythromycin base Allergy Unknown Nausea Verified 10/31/17 10:27 morphine Allergy Unknown Nausea Verified 10/31/17 10:27 nitroglycerin Allergy Unknown Nausea Verified 10/31/17 10:27 prochlorperazine Allergy Unknown Nausea Verified 10/31/17 10:27 tetanus immune globulin Allergy Unknown Nausea Verified 10/31/17 10:27 atenolol AdvReac Severe Nightmare Verified 11/02/17 13:38 EES AdvReac Mild Nausea Uncoded 10/31/17 10:27 Physical Exam Vital signs: Vital Signs 11/04/17 12:00 11/04/17 14:00 11/04/17 16:00 Temperature 97.8 F 97.4 F L Pulse Rate 112 H 110 H 118 H Respiratory Rate 27 H 22 Blood Pressure 157/82 H 128/59 L Pulse Oximetry 99 99 11/04/17 18:00 11/04/17 20:00 11/04/17 22:00 Temperature 97.9 F Pulse Rate 102 H 105 H 105 H Respiratory Rate Blood Pressure Pulse Oximetry 97 11/05/17 00:00 11/05/17 02:00 11/05/17 04:00 Temperature 97.8 F 98.1 F Pulse Rate 104 H 104 H 115 H Respiratory Rate 20 22 Blood Pressure 134/89 Pulse Oximetry 98 11/05/17 06:00 11/05/17 07:31 11/05/17 08:00 Temperature 98 F Pulse Rate 115 H 102 H Respiratory Rate 20 Blood Pressure 120/64 Pulse Oximetry 95 98 Intake & Output 11/04/17 11/05/17 11/05/17 18:59 06:59 18:59 Intake Total 2114.1437 / 2114.1437 Output Total 300 / 300 400 / 400 Balance 1814.1437 / 1814.1437 -400 / -400 Weight 63.1 kg Intake: IV 1874.1437 / 1874.1437 Oral 240 / 240 Output: Urine 300 / 300 400 / 400 Other: # Voids 5 # Incontinent Voids 3 Date of Last Bowel Movement 11/03/17 11/03/17 11/05/17 # Bowel Movements 3 3 # Incontinent Bowel Movements 3 Narrative: Access -Utilize peripheral IV. Central line if indicated Prophylaxis -GI -famotidine -DVT -SCD/holding pharmacological prophylaxis status post intracranial hemorrhage Code Status: DNR Discussed with the patient, family at bedside daughter, ICU nurse awake alert still r droop and weak r hand on toilet had bm abd distended - Urinary Catheter Management Indwelling Urethral Catheter Cath placed during this visit: yes, but has since been removed by the nurse Reason for continuing: Decision to DC catheter Insertion date: 10/31/17 Removal date: 11/01/17 Removal time: 15:00 Objective Laboratory Results - last 24 hr 11/04/17 11/04/17 12:28 20:54 WBC 18.6 H RBC 4.85 Hgb 15.4 H Hct 46.3 H MCV 95.4 MCH 31.8 MCHC 33.3 RDW 14.7 Plt Count 387 MPV 8.2 Stl C.difficile Tox PCR Cancelled St C. diff Tox Epid 027 Cancelled Review/Management - Review/Management Plan: imp afib some hemorrhagic component from r mca 2 cva probably occurred in last 2 months with some falls tiny on mri left mca cortical infarct must be slightly larger than mri shows 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 -11/03/17 echo mod mr looks worse this am and some sob check cxr abg and mri brain i dw med team 11/04/17 no new cva cxr chf still i dw med team doing better today sx mr mod chf afib will need to fu cards at some point 11/05/17 doing stable neuro gi sissue watch chf breathing better neurowise cleared for rehab dc will anticoag in few weeks Daily Summary: imp left mca and some r parietal some ich asa for now swallow eval
--- NOTE | 2017-11-05 11:57 | P.DIET ---
Nutritional Evaluation Type of nutrition evaluation: initial Nutrition consult regarding: TPN/PPN (New PPN found on TPN/PPN report) Subjective Subjective Comments: Pt refused a Dobbhoff and NG-T. Has chronic abdominal pain. Objective - Diagnosis Strole Alert/TPA - Objective % IBW: 104 (IBW = 135#) Body Weight Used for Calculations: Actual (63.8 kg) Energy Needs - Lower Range (kCal/kg): 25 Energy Needs - Upper Range (kCal/kg): 30 Lower Limit kCal/kg (kCals): 1,595 Upper Limit kCal/kg (kCals): 1,914 Lower Limit Protein Factor (Grams per Kg): 1.0 Upper Limit Protein Factor (Grams per Kg): 1.3 Lower Protein Needs (Protein): 64 Upper Protein Needs (Protein): 83 Fluid Factor (ml/kg): 30 Estimated Fluid Needs (ml): 1,914 Dietitian Reviewed in Medical Record: Current diet, Curent medications, Intake & Output, Labs, Medical history, TPN/PPN Speech Therapy Recommendations: Yes (pureed, honey thickened liquids (8/)) Feeding - Current TPN/PPN Current PPN: Clinimix 4.25/5 (Renal Formula) Current TPN/PPN Rate (ml/hr): 50 Amino Acid and Dextrose Current kCals Provided: 408 Amino Acid and Dextrose Current Protein Provided: 51 Current TPN/PPN/Lipids Comments: Lipids are recommended when giving PPN. Assessment Assessment: Pt receiving PPN as above, however, she has passed her swallow eval but remains npo. Recommend advance diet per ST recs, d/c PPN and encourage po intake. Recommendations: 1. D/C PPN 2. Please record % of meal eaten in EMR when diet is advanced Dietitian to Monitor: Lab values, Intake & Output, Diet tolerance, Weight change , PO Intake, Swallow recommendations, Medical course
--- NOTE | 2017-11-05 14:26 | P.PNGI ---
Subjective Interval history: Pt resting in bed, had a rough night. Family at bedside reports pt has had 3 BMs. Pt denies any nausea or vomiting. Pt mildly tender on exam, but improvement since yesterday. <Lindsey Donahue - Last Filed: 11/05/17 14:31> Physical Exam Vital signs: Vital Signs 11/04/17 16:00 11/04/17 18:00 11/04/17 20:00 Temperature 97.4 F L 97.9 F Pulse Rate 118 H 102 H 105 H Respiratory Rate 22 Blood Pressure 128/59 L Pulse Oximetry 99 97 11/04/17 22:00 11/05/17 00:00 11/05/17 02:00 Temperature 97.8 F Pulse Rate 105 H 104 H 104 H Respiratory Rate 20 Blood Pressure Pulse Oximetry 11/05/17 04:00 11/05/17 06:00 11/05/17 07:31 Temperature 98.1 F Pulse Rate 115 H 115 H Respiratory Rate 22 Blood Pressure 134/89 Pulse Oximetry 98 95 11/05/17 08:00 Temperature 98 F Pulse Rate 102 H Respiratory Rate 20 Blood Pressure 120/64 Pulse Oximetry 98 Intake & Output 11/04/17 11/05/17 11/05/17 18:59 06:59 18:59 Intake Total 2114.1437 / 2114.1437 Output Total 300 / 300 400 / 400 Balance 1814.1437 / 1814.1437 -400 / -400 Weight 63.1 kg Intake: IV 1874.1437 / 1874.1437 Oral 240 / 240 Output: Urine 300 / 300 400 / 400 Other: # Voids 5 # Incontinent Voids 3 Date of Last Bowel Movement 11/03/17 11/03/17 11/05/17 # Bowel Movements 3 3 # Incontinent Bowel Movements 3 - Constitutional no acute distress - Routine HEENT Exam Head: Present: normocephalic, atraumatic - Routine Abdominal Exam Present: soft, normoactive bowel sounds, tenderness, distended - Routine Skin Exam Present: dry, warm - Urinary Catheter Management Indwelling Urethral Catheter Cath placed during this visit: yes, but has since been removed by the nurse Reason for continuing: Decision to DC catheter Insertion date: 10/31/17 Removal date: 11/01/17 Removal time: 15:00 <Lindsey Donahue - Last Filed: 11/05/17 14:31> Vital signs: Vital Signs 11/04/17 18:00 11/04/17 20:00 11/04/17 22:00 Temperature 97.9 F Pulse Rate 102 H 105 H 105 H Respiratory Rate Blood Pressure Pulse Oximetry 97 11/05/17 00:00 11/05/17 02:00 11/05/17 04:00 Temperature 97.8 F 98.1 F Pulse Rate 104 H 104 H 115 H Respiratory Rate 20 22 Blood Pressure 134/89 Pulse Oximetry 98 11/05/17 06:00 11/05/17 07:31 11/05/17 08:00 Temperature 98 F Pulse Rate 115 H 102 H Respiratory Rate 20 Blood Pressure 120/64 Pulse Oximetry 95 98 Intake & Output 11/04/17 11/05/17 11/05/17 18:59 06:59 18:59 Intake Total 2114.1437 / 2114.1437 Output Total 300 / 300 400 / 400 Balance 1814.1437 / 1814.1437 -400 / -400 Weight 63.1 kg Intake: IV 1874.1437 / 1874.1437 Oral 240 / 240 Output: Urine 300 / 300 400 / 400 Other: # Voids 5 # Incontinent Voids 3 Date of Last Bowel Movement 11/03/17 11/03/17 11/05/17 # Bowel Movements 3 3 # Incontinent Bowel Movements 3 - Urinary Catheter Management Indwelling Urethral Catheter Cath placed during this visit: no <Jazmine Christy - Last Filed: 11/05/17 17:18> Results - Labs CBC & Chem 7: 11/04/17 12:28 11/04/17 05:25 Laboratory Results - last 24 hr 11/04/17 20:54 Stl C.difficile Tox PCR Cancelled St C. diff Tox Epid 027 Cancelled - Imaging Impressions Abdomen X-Ray 11/04/17 13:16 CONCLUSION: Nonspecific bowel gas pattern with mild gaseous distention noted. Abdomen/Pelvis CT 11/04/17 14:42 CONCLUSION: 1. Mild mural thickening of the left colon most characteristic of a mild colitis. 2. Diffuse ileus of small and proximal large bowel. 3. Mild ascites. Moderate pleural effusions. Moderate anasarca. 4. Cardiomegaly with moderate coronary calcifications. 5. Numerous tiny hepatic cysts with periportal edema in the liver. <Lindsey Donahue - Last Filed: 11/05/17 14:31> - Labs CBC & Chem 7: 11/04/17 12:28 11/04/17 05:25 Laboratory Results - last 24 hr 11/04/17 20:54 Stl C.difficile Tox PCR Cancelled St C. diff Tox Epid 027 Cancelled - Imaging Impressions Abdomen/Pelvis CT 11/04/17 14:42 CONCLUSION: 1. Mild mural thickening of the left colon most characteristic of a mild colitis. 2. Diffuse ileus of small and proximal large bowel. 3. Mild ascites. Moderate pleural effusions. Moderate anasarca. 4. Cardiomegaly with moderate coronary calcifications. 5. Numerous tiny hepatic cysts with periportal edema in the liver. <Jazmine Christy - Last Filed: 11/05/17 17:18> Assessment and Plan - Plan Assessment: - Abdominal pain- Pt reports intermittent abodminal pain for years, left sided, takes Tums with milks at home for attempt at relief. Noticed abdominal distention last night and then began having excruciating abdominal pain today, generalized over entire abdomen. Abdominal exam was deferred because pt does not want abdomen touched or palpated. - Nausea and vomiting- intermittent for a long time, no emesis since admission- denies hematemesis and coffee ground emesis Has never had EGD Last colonoscopy was multiple years ago and states findings of 4 polyps (8/2) CT reviewed --> Mild mural thickening of the left colon most characteristic of a mild colitis. Diffuse ileus of small and proximal large bowel. Mild ascites. Moderate pleural effusions. Moderate anasarca. Cardiomegaly with moderate coronary calcifications. Numerous tiny hepatic cysts with periportal edema in the liver. 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 C Diff was sent but cancelled by lab because stool was too formed. Pt abdomen still distended today, she is tender on exam, seems more tender on the left side. Remains NPO. Started on Levaquin and Flagyl by attending. ?ischemic colitis. Plan: Levaquin and Flagyl Continue NPO Monitor stool count Enteric pathogens Pt does not want endoscopic procedures Further recommendations based on clinical course Pt has been seen and examined by myself and Dr. Christy and this note is written on his behalf <Lindsey Donahue - Last Filed: 11/05/17 14:31> - Plan CT scan reviewed with family. STool studies -p. Pt. and family does not want any invasive testing at this time. <Jazmine Christy - Last Filed: 11/05/17 17:18>
[2017-11-05] MEDS: Atenolol 25 MG Tablet PO SCH (20:17)
[2017-11-06] MEDS: Famotidine PF Inj 20 MG/2 ML Vial IV.PUSH SCH ×2 (00:36→18:16)
[2017-11-06 04:48] LABS: Hematocrit 50.2 % (35.0-46.0); Hemoglobin 16.2 gm/dL (11.6-15.3); Mean Corpuscular HGB Conc 32.3 % (32.0-36.0); Mean Corpuscular Hemoglobin 30.5 pg (27.0-34.0); Mean Corpuscular Volume 94.5 fL (80.0-100.0); Mean Platelet Volume 8.1 fL (7.0-11.0); Platelet Count 301 th/mm3 (150-450); Red Blood Count 5.31 mil/mm3 (4.00-5.30); Red Cell Distribution Width 14.6 % (11.6-17.2)
[2017-11-06 05:03] LABS: Alanine Aminotransferase 58 U/L (10-53); Anion Gap 8 meq/L (5-15); Aspartate Aminotransferase 63 U/L (15-37); Blood Urea Nitrogen 63 mg/dL (7-18); Calcium 8.7 mg/dL (8.5-10.1); Carbon Dioxide 25.8 meq/L (21.0-32.0); Chloride 116 meq/L (98-107); Glomerular Filtration Rate 42 mL/min (>89); Glucose,Random 106 mg/dL (74-106); Potassium 3.3 meq/L (3.5-5.1); Sodium 150 meq/L (136-145)
[2017-11-06 05:05] LABS: Alkaline Phosphatase 85 U/L (45-117)
[2017-11-06 06:48] LABS: Lymphocytes 9 % (9-44); Monocytes 5 % (0-8)
[2017-11-06 06:50] LABS: Platelet Estimate Normal (Normal); Platelet Morphology Normal (Normal)
[2017-11-06 06:51] LABS: RBC Morphology Normal (Normal); White Blood Count 20.1 th/mm3 (4.0-11.0)
--- NOTE | 2017-11-06 07:35 | P.PNNEU ---
Subjective Subjective Comments: No acute events reported No headache No chest pain No dyspnea Active Medications: Active Medications Acetaminophen (Tylenol) 650 mg PO Q6H PRN PRN Reason: PAIN 1-10 AND/OR FEVER >101F Al Hydroxide/Mg Hydroxide (Milk Of Magnjanna Liq) 30 ml PO Q12H PRN PRN Reason: Mild Constipation Albuterol (Albuterol Neb (Prn)) 2.5 mg NEB Q2HR NEB PRN PRN Reason: WHEEZING Last Admin: 11/02/17 08:15 Dose: 2.5 mg Albuterol (Duoneb Neb (Prn)) 1 ampul NEB Q4HR NEB PRN PRN Reason: SHORTNESS OF BREATH Aspirin (Aspirin) 325 mg PO DAILY [facility] Atenolol (Tenormin) 12.5 mg PO BID [facility] Last Admin: 11/05/17 20:17 Dose: 12.5 mg Bisacodyl (Dulcolax Supp) 10 mg RECTAL DAILY PRN PRN Reason: SEVERE CONSITIPATION Clonidine HCl (Catapress-Tts 0.2 Mg Patch.7d) 1 patch T-DERMAL Q7D [facility] Last Admin: 11/01/17 15:27 Dose: 1 patch Famotidine (Pepcid Pf Inj) 20 mg IV.PUSH Q24H [facility] Last Admin: 11/06/17 00:36 Dose: Not Given Furosemide (Lasix Inj) 40 mg IV.PUSH BID@0900,1800 [facility] Last Admin: 11/06/17 00:35 Dose: Not Given Acetaminophen (Ofirmev Inj) 1,000 mg in 100 mls @ 400 mls/hr IV.SIG Q8H PRN PRN Reason: PAIN SCALE 1 TO 10 Sodium Chloride 5.5 meq/Sodium Acetate 29.5 meq/Potassium Chloride 20 meq/ Magnesium Chloride 5 meq/Calcium Chloride 4.5 meq/Multivitamins 5 ml/ Folic Acid 0.5 mg/ Amino Acids/Electrolytes/Dextrose 1,037.0719 mls @ 50 mls/hr IV.SIG Q20H [facility] Last Infusion: 11/05/17 08:33 Dose: 50 mls/hr Metronidazole/Sodium Chloride (Flagyl 500 Mg Inj) 100 mls @ 100 mls/hr IV.SIG Q8H [facility] Last Admin: 11/06/17 06:58 Dose: 100 mls/hr Levofloxacin/Dextrose (Levaquin 750 Mg Premix Inj) 150 mls @ 100 mls/hr IV.SIG Q48H [facility] Last Admin: 11/06/17 00:34 Dose: Not Given Labetalol HCl (Trandate Inj) 10 mg IV.PUSH Q1H PRN PRN Reason: SBP>160, DBP>90 Last Admin: 11/04/17 16:17 Dose: 10 mg Lactulose (Lactulose Liq) 30 ml PO DAILY PRN PRN Reason: SEVERE CONSITIPATION Miscellaneous (Pill Splitter) 1 each OTHER UNSCH PRN PRN Reason: SEE LABEL COMMENTS Ondansetron HCl (Zofran Odt) 4 mg PO Q6H PRN PRN Reason: NAUSEA OR VOMITING Last Admin: 11/02/17 00:20 Dose: 4 mg Patch Removal (Remove Old Patch) 1 each T-DERMAL Q7D [facility] Last Admin: 11/01/17 16:30 Dose: 1 each Potassium Chloride (K-Dur) 20 meq PO BID [facility] Last Admin: 11/05/17 20:17 Dose: 20 meq Senna/Docusate Sodium (Juany-Colace) 1 tab PO BID [facility] Last Admin: 11/05/17 20:17 Dose: 1 tab Sennosides (Senokot) 17.2 mg PO Q12H PRN PRN Reason: Moderate Constipation Simethicone (Phazyme Chew) 125 mg PO TID PRN PRN Reason: GAS RETENTION Sodium Chloride (Ns Flush) 2 ml IV.FLUSH BID [facility] Last Admin: 11/06/17 00:33 Dose: 2 ml Sodium Chloride (Ns Flush) 2 ml IV.FLUSH UNSCH PRN PRN Reason: FLUSH AFTER USING IV ACCESS Allergies/Adverse Reactions: Allergies Allergy/AdvReac Type Severity Reaction Status Date / Time Influenza Virus Vaccines Allergy Severe HIVES Verified 11/02/17 13:37 lansoprazole Allergy Severe "SHUTS Verified 11/02/17 13:37 DOWN KINDEYS" meperidine Allergy Severe SYNCOPY Verified 11/02/17 13:37 penicillin G Allergy Severe Anaphylaxis Verified 11/02/17 13:37 tetanus toxoid, adsorbed Allergy Severe RESP Verified 11/02/17 13:37 DISTRESS Sulfa (Sulfonamide Allergy Mild Nausea Verified 11/02/17 13:37 Antibiotics) erythromycin base Allergy Unknown Nausea Verified 10/31/17 10:27 morphine Allergy Unknown Nausea Verified 10/31/17 10:27 nitroglycerin Allergy Unknown Nausea Verified 10/31/17 10:27 prochlorperazine Allergy Unknown Nausea Verified 10/31/17 10:27 tetanus immune globulin Allergy Unknown Nausea Verified 10/31/17 10:27 atenolol AdvReac Severe Nightmare Verified 11/02/17 13:38 EES AdvReac Mild Nausea Uncoded 10/31/17 10:27 Physical Exam Vital signs: Vital Signs 11/05/17 08:00 11/05/17 10:00 11/05/17 12:00 Temperature 98 F 98 F Pulse Rate 102 H 102 H 104 H Respiratory Rate 20 20 Blood Pressure 120/64 Pulse Oximetry 98 98 11/05/17 14:00 11/05/17 16:00 11/05/17 17:58 Temperature 97.2 F L Pulse Rate 102 H 114 H 114 H Respiratory Rate 21 Blood Pressure Pulse Oximetry 97 11/05/17 19:33 11/05/17 20:00 11/05/17 21:58 Temperature 98.5 F Pulse Rate 103 H 115 H Respiratory Rate 14 Blood Pressure 133/86 Pulse Oximetry 97 100 11/05/17 23:41 11/06/17 00:00 11/06/17 01:00 Temperature 98.2 F Pulse Rate 109 H 109 H Respiratory Rate 24 Blood Pressure 139/81 Pulse Oximetry 98 100 11/06/17 04:00 11/06/17 05:00 Temperature 98.7 F Pulse Rate 118 H 113 H Respiratory Rate 24 Blood Pressure 169/77 H Pulse Oximetry 100 Intake & Output 11/05/17 11/06/17 11/06/17 18:59 06:59 18:59 Intake Total 240 / 240 100 / 100 Output Total 400 / 400 Balance -160 / -160 100 / 100 Weight 59.4 kg Intake: IV 100 / 100 Flagyl 500 MG Inj 100 ML @ 100 100 / 100 mls/hr IV.SIG Q8H [facility] Rx#: [id number] Oral 240 / 240 Water Bolus Amount 0 / 0 Output: Urine 400 / 400 Other: # Voids 5 # Incontinent Voids 3 5 # Urine Diapers 0 Date of Last Bowel Movement 11/05/17 11/06/17 # Bowel Movements 3 # Incontinent Bowel Movements 3 5 Narrative: awake alert moving r well r droop speech stronger - Urinary Catheter Management Indwelling Urethral Catheter Cath placed during this visit: yes, but has since been removed by the nurse Reason for continuing: Decision to DC catheter Insertion date: 10/31/17 Removal date: 11/01/17 Removal time: 15:00 Objective Laboratory Results - last 24 hr 11/06/17 11/06/17 03:40 03:40 WBC 20.1 H RBC 5.31 H Hgb 16.2 H Hct 50.2 H MCV 94.5 MCH 30.5 MCHC 32.3 RDW 14.6 Plt Count 301 MPV 8.1 Prelim Diff (Auto) Manual diff required WBC Differential Manual diff final Seg Neuts % (Manual) 35 Band Neuts % (Manual) 51 H Lymphocytes % (Manual) 9 Monocytes % (Manual) 5 Abs Neuts (Manual) 17.3 H Differential Comment . Platelet Estimate Normal Platelet Morphology Normal RBC Morphology Normal Sodium 150 H Potassium 3.3 L Chloride 116 H Carbon Dioxide 25.8 Anion Gap 8 BUN 63 H Creatinine 1.21 H Estimated GFR 42 L Random Glucose 106 Calcium 8.7 Total Bilirubin 0.9 AST 63 H ALT 58 H Alkaline Phosphatase 85 Total Protein 6.0 L Albumin 2.0 L Review/Management - Review/Management Plan: imp afib some hemorrhagic component from r mca 2 cva probably occurred in last 2 months with some falls tiny on mri left mca cortical infarct must be slightly larger than mri shows 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 -11/03/17 echo mod mr looks worse this am and some sob check cxr abg and mri brain i dw med team 11/04/17 no new cva cxr chf still i dw med team doing better today sx mr mod chf afib will need to fu cards at some point 11/05/17 doing stable neuro gi sissue watch chf breathing better neurowise cleared for rehab dc will anticoag in few weeks -------- 11/06/17 speech stronger abd softer colitis stable neuro chf better she can dc neurowise and in few weeks i will start coumadin Daily Summary: imp left mca and some r parietal some ich asa for now swallow eval
[2017-11-06] MEDS: Aspirin 325 MG Tablet PO SCH (10:21)
[2017-11-06] MEDS: Senna/Docusate Sodium 8.6/50 MG Tablet PO SCH ×2 (10:29→21:50)
[2017-11-06] MEDS: Atenolol 25 MG Tablet PO SCH ×2 (10:29→21:51)
--- NOTE | 2017-11-06 10:35 | P.PN ---
Physical Exam Vital signs: Vital Signs 11/05/17 12:00 11/05/17 14:00 11/05/17 16:00 Temperature 98 F 97.2 F L Pulse Rate 104 H 102 H 114 H Respiratory Rate 20 21 Blood Pressure Pulse Oximetry 98 97 11/05/17 17:58 11/05/17 19:33 11/05/17 20:00 Temperature 98.5 F Pulse Rate 114 H 103 H Respiratory Rate 14 Blood Pressure 133/86 Pulse Oximetry 97 100 11/05/17 21:58 11/05/17 23:41 11/06/17 00:00 Temperature 98.2 F Pulse Rate 115 H 109 H Respiratory Rate 24 Blood Pressure 139/81 Pulse Oximetry 98 100 11/06/17 01:00 11/06/17 04:00 11/06/17 05:00 Temperature 98.7 F Pulse Rate 109 H 118 H 113 H Respiratory Rate 24 Blood Pressure 169/77 H Pulse Oximetry 100 11/06/17 07:40 Temperature Pulse Rate Respiratory Rate Blood Pressure Pulse Oximetry 95 Intake & Output 11/05/17 11/06/17 11/06/17 18:59 06:59 18:59 Intake Total 1277.0719 / 1277.0719 100 / 954 717.8056 / 887.0719 Output Total 400 / 400 Balance 877.0719 / 877.0719 100 / 740 751.2975 / 887.0719 Weight 59.4 kg Intake: IV 1037.0719 / 1037.0719 100 / 549 582.3299 / 887.0719 Sodium Chloride 23.4% Inj 5.5 1037.0719 / 1037.0719 787.0719 / 787.0719 MEQ Sodium Acetate Inj 29.5 MEQ KCl Inj 20 MEQ Magnesium Chloride Inj 5 MEQ Calcium Chloride Inj 4.5 MEQ MVI-12 Inj 5 ML Folvite Inj 0.5 MG In TPN Fluid 2 Liter 1,000 ML @ 50 mls/hr IV.SIG Q20H [facility] Rx#: [id number] Flagyl 500 MG Inj 100 ML @ 100 100 / 100 100 / 100 mls/hr IV.SIG Q8H [facility] Rx#: [id number] Oral 240 / 240 Water Bolus Amount 0 / 0 Output: Urine 400 / 400 Other: # Voids 5 # Incontinent Voids 3 5 # Urine Diapers 0 Date of Last Bowel Movement 11/05/17 11/06/17 # Bowel Movements 3 # Incontinent Bowel Movements 3 5 Narrative: Subjective Subjective Remarks/Hospital Course: This otherwise healthy 87-year-old woman developed difficulty with speech and a weak right side while eating breakfast this morning. She was brought to the emergency department where she ruled in as a stroke alert and after evaluation by Dr. Lozoay from neurology she received TPA. In the emergency department her right sided deficit was quite dense and her speech difficulties were pronounced. Both difficulties improved modestly at first and at that point she has been transported to the [facility]. Blood pressure control has been obtained with intravenous Cardene infusion. She developed some gastric retching and a worse headache, MRI and repeat CT indicate an area of possible bleeding posteriorly in the parietal region however the woman remains clearly improved from prior to the TPA. 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 She has a good sense of humor and asks appropriate questions. She can raise her right arm above gravity but the hand grasp remains weak. The patient has expressed quite clearly to me that she would not want any therapy that would involve ventilators or surgery. Although she is doing well at this time she would like us to continue full care but she prefers to be DNR status. 11/01: She is alert and oriented. Speech is modestly slurred. Her right sided extremity strength has improved. She has a pronounced right facial droop. She failed her swallow evaluation. Started on Catapres patch and intravenous labetalol and attempt to wean off the Cardene. She will eventually need an NG tube or Dobbhoff. SUBJECTIVE: 11/02: Remains on Nicardipine drip at 10 mg an hour. Failed swallow evaluation. Refusing Dobbhoff or NG tube. Will start TPN and switch to clevidipine drip. Right upper extremity with positive pronator drip and significant discoordination with facial droop right-sided 11/03: Currently off all antihypertensive infusions. Right upper extremity remains flaccid on my exam. Expressive aphasia persist according to nurse stable to slightly worsened overnight. 11/04/17 the patient is in bed she complains of pain in her belly. Daughter at bedside. Patient says she takes milk and sometimes Tums at home and that helps a lot. She has chronic abdominal pain. Is noted however with abdominal distention. Will do KUB. Will ask GI for consult. Patient does not have a GI doctor. She also says she has a history of multiple stomach ulcers. She is not vomiting blood. Had a diarrhea in the morning and normal color no blood in it. No fever or chills. 11/05/17 patient had 3 bowel movements since yesterday. The bowel movements are formed no more diarrhea. C. difficile was not performed is no diarrhea. Still with significant abdominal pain however seems to improve. No fever or chills. No nausea or vomiting. Patient refusing endoscopic procedures. 11/06/17 Refusing NGT. Still with abdominal pain diffuse. With profuse diarrhea. Will start Lactinex. No fevers. With abd pain. No /v/d/c. Physical exam: General appearance: Elderly female, appears in distress 2/2 abd pain Head: Atraumatic and normocephalic. Lungs: Clear bilaterally. No wheezes or crackles. Heart: Irregular regular rhythm rate controlled, no jugular venous distention. Abdomen: Decreased bowel sounds, abdomen is less distended, diffusely tender to palpation. Extremities: Warm, well-perfused Neuro: Right arm remains with 1/5 power and right leg considerably 2-3/5. Discoordination right upper extremity. Right facial droop improved. Expressive aphasia the same. Alert. Assessment and Plan - Assessment and Plan GI: With abdominal pain and distention. History of stomach ulcers per patient and family Mild colitis questionable if ischemic colitis Diffuse ileus of small and proximal large bowel KUB shows gas no other abnormality. CT with and without contrast abdomen reviewed; 1. Mild mural thickening of the left colon most characteristic of a mild colitis. 2. Diffuse ileus of small and proximal large bowel. 3. Mild ascites. Moderate pleural effusions. Moderate anasarca. 4. Cardiomegaly with moderate coronary calcifications. 5. Numerous tiny hepatic cysts with periportal edema in the liver. Also consulted GI appreciate recommendations C diff not able to perform as patient stool is forming Stool studies Started on IV antibiotics Flagyl and Levaquin Patient refusing endoscopic procedures PPIs Refusing NG tube With more diarrhea sent for C diff and stool studies. Cont abx Neuro/Psych: Left MCA CVA/right parietal CVA subacute MRI brain on admission revealed changes in the right frontal/posterior parietal right parietal regions possibly subacute ischemia. CTA head and neck showed atherosclerotic vessels with no significant stenosis CT brain 7/29 shows infarct and residual secondary hemorrhage along posterior parietal occipital mid convexities a Followed by Dr. Lozoya/neurology Continue aspirin 3 mg per rectum daily Start lipid lowering agent when able to swallow. Status post alteplase CV: Hypertensive emergency Home medications verapamil unknown dosage daily. Off nicardipine infusion Labetalol 10 mg IV every 2 hours as needed Troponin 0 0.08 on admission. Started on Catapres patch 0.2 mg weekly on 10/31 BP is better controlled. Resp: Acute hypoxic insufficiency Nasal cannula per stroke protocol. Currently on 2 L Incentive spirometry while awake Follow-up chest x-ray in a.m. GI: Hypoalbuminemia Failed swallow evaluation. Refuses Dobbhoff or NG tube. Daughter at bedside Started PPN at 50 cc an hour. Dulcolax suppository daily for bowel regimen Famotidine 20 mg daily for GI prophylaxis : No Ye catheter Endo: Sliding scale insulin to maintain euglycemia. Renal: Acute kidney injury Received 1 dose of furosemide Currently on normal saline 84-DC while PPN going Heme: Leukocytosis Monitor CBC daily. Follow trends. Check UA again ID: Monitor for signs and symptomatology infection CBC MSK: PT/OT evaluate and treat FEN: Hyponatremia Replace electrolytes as clinically indicated Access -Utilize peripheral IV. Central line if indicated Prophylaxis -GI -famotidine -DVT -SCD/holding pharmacological prophylaxis status post intracranial hemorrhage Code Status: DNR Discussed with the patient, family at bedside, ICU nurse Transfer to neuro floor when okay with neurology. - Urinary Catheter Management Indwelling Urethral Catheter Cath placed during this visit: yes, but has since been removed by the nurse Reason for continuing: Decision to DC catheter Insertion date: 10/31/17 Removal date: 11/01/17 Removal time: 15:00 Results - Labs CBC & Chem 7: 11/06/17 03:40 11/06/17 03:40 Laboratory Results - last 24 hr 11/06/17 11/06/17 03:40 03:40 WBC 20.1 H RBC 5.31 H Hgb 16.2 H Hct 50.2 H MCV 94.5 MCH 30.5 MCHC 32.3 RDW 14.6 Plt Count 301 MPV 8.1 Prelim Diff (Auto) Manual diff required WBC Differential Manual diff final Seg Neuts % (Manual) 35 Band Neuts % (Manual) 51 H Lymphocytes % (Manual) 9 Monocytes % (Manual) 5 Abs Neuts (Manual) 17.3 H Differential Comment . Platelet Estimate Normal Platelet Morphology Normal RBC Morphology Normal Sodium 150 H Potassium 3.3 L Chloride 116 H Carbon Dioxide 25.8 Anion Gap 8 BUN 63 H Creatinine 1.21 H Estimated GFR 42 L Random Glucose 106 Calcium 8.7 Total Bilirubin 0.9 AST 63 H ALT 58 H Alkaline Phosphatase 85 Total Protein 6.0 L Albumin 2.0 L
[2017-11-06] MEDS ORDERED: Potassium Bicarbonate 25 MEQ Effervescent Tablet PO ONE ×2 (10:54→13:00)
[2017-11-06] MEDS ORDERED: Lactobacillus Acidophilus/L. Spores Tablet PO ONE (10:55)
[2017-11-06] MEDS ORDERED: [UNRECOGNIZED DRUG - OTHER] IV.SIG SCH ×7 (12:45)
[2017-11-06] MEDS ORDERED: POTASSIUM CHLORIDE IV.SIG SCH ×7 (12:45)
[2017-11-06] MEDS ORDERED: SODIUM ACETATE IV.SIG SCH ×7 (12:45)
[2017-11-06] MEDS: Lactobacillus Acidophilus/L. Spores Tablet PO SCH ×2 (14:00→18:16)
--- NOTE | 2017-11-06 16:26 | P.PNGI ---
Subjective Interval history: Patient is resting in the bed daughter in room presentphysical therapy assisting to get patient up Speech slurred but responding mild guarding to her abdomen Daughter states 3 loose BMs today but no obvious blood <EsteeSheila M - Last Filed: 11/06/17 16:36> Physical Exam Vital signs: Vital Signs 11/05/17 17:58 11/05/17 19:33 11/05/17 20:00 Temperature 98.5 F Pulse Rate 114 H 103 H Respiratory Rate 14 Blood Pressure 133/86 Pulse Oximetry 97 100 11/05/17 21:58 11/05/17 23:41 11/06/17 00:00 Temperature 98.2 F Pulse Rate 115 H 109 H Respiratory Rate 24 Blood Pressure 139/81 Pulse Oximetry 98 100 11/06/17 01:00 11/06/17 04:00 11/06/17 05:00 Temperature 98.7 F Pulse Rate 109 H 118 H 113 H Respiratory Rate 24 Blood Pressure 169/77 H Pulse Oximetry 100 11/06/17 07:40 11/06/17 08:00 11/06/17 09:00 Temperature 97.7 F Pulse Rate 123 H 123 H Respiratory Rate 23 Blood Pressure 131/92 H Pulse Oximetry 95 100 11/06/17 12:04 11/06/17 12:11 Temperature 98 F Pulse Rate 99 H 123 H Respiratory Rate 23 Blood Pressure 131/78 Pulse Oximetry 100 Intake & Output 11/05/17 11/06/17 11/06/17 18:59 06:59 18:59 Intake Total 1277.0719 / 1277.0719 100 / 790 728.1490 / 987.0719 Output Total 400 / 400 Balance 877.0719 / 877.0719 100 / 719 246.0534 / 987.0719 Weight 59.4 kg Intake: IV 1037.0719 / 1037.0719 100 / 930 176.9101 / 987.0719 Sodium Chloride 23.4% Inj 5.5 1037.0719 / 1037.0719 787.0719 / 787.0719 MEQ Sodium Acetate Inj 29.5 MEQ KCl Inj 20 MEQ Magnesium Chloride Inj 5 MEQ Calcium Chloride Inj 4.5 MEQ MVI-12 Inj 5 ML Folvite Inj 0.5 MG In TPN Fluid 2 Liter 1,000 ML @ 50 mls/hr IV.SIG Q20H [facility] Rx#: [id number] Flagyl 500 MG Inj 100 ML @ 100 100 / 100 200 / 200 mls/hr IV.SIG Q8H [facility] Rx#: [id number] Oral 240 / 240 Water Bolus Amount 0 / 0 Output: Urine 400 / 400 Other: # Voids 5 # Incontinent Voids 3 5 # Urine Diapers 0 Date of Last Bowel Movement 11/05/17 11/06/17 # Bowel Movements 3 # Incontinent Bowel Movements 3 5 - Constitutional mild distress, chronically ill appearing - Routine HEENT Exam Head: Present: normocephalic Eye: Present: EOMI ENT: Present: mucous membranes moist - Routine Neck Exam Present: supple - Routine Cardiovascular Exam Present: S1, S2 - Routine Abdominal Exam Present: soft (Round, active bowel sounds some guarding to light palpation) - Routine Skin Exam Present: intact - Routine Neurological Exam Present: alert (Awake speech garbled) - Urinary Catheter Management Indwelling Urethral Catheter Cath placed during this visit: yes, but has since been removed by the nurse Reason for continuing: Decision to DC catheter Insertion date: 10/31/17 Removal date: 11/01/17 Removal time: 15:00 <Sheila Fontanez - Last Filed: 11/06/17 16:36> Vital signs: Vital Signs 11/06/17 20:00 11/06/17 21:30 11/07/17 00:00 Temperature 98.2 F 97.9 F Pulse Rate 110 H 92 H 101 H Respiratory Rate 18 18 Blood Pressure 153/70 H 141/85 H 116/76 Pulse Oximetry 98 98 11/07/17 04:00 11/07/17 04:16 11/07/17 08:00 Temperature 97.2 F L 96.7 F L Pulse Rate 113 H 92 H Respiratory Rate 17 14 Blood Pressure 139/92 H 174/84 H Pulse Oximetry 97 98 97 11/07/17 12:00 Temperature 97.1 F L Pulse Rate 86 Respiratory Rate 18 Blood Pressure 98/61 L Pulse Oximetry 98 Intake & Output 11/06/17 11/07/17 11/07/17 18:59 06:59 18:59 Intake Total 987.0719 / 987.0719 100 / 100 Balance 987.0719 / 987.0719 100 / 100 Intake: IV 987.0719 / 987.0719 100 / 100 Sodium Chloride 23.4% Inj 5.5 787.0719 / 787.0719 MEQ Sodium Acetate Inj 29.5 MEQ KCl Inj 20 MEQ Magnesium Chloride Inj 5 MEQ Calcium Chloride Inj 4.5 MEQ MVI-12 Inj 5 ML Folvite Inj 0.5 MG In TPN Fluid 2 Liter 1,000 ML @ 50 mls/hr IV.SIG Q20H [facility] Rx#: [id number] Flagyl 500 MG Inj 100 ML @ 100 200 / 200 100 / 100 mls/hr IV.SIG Q8H [facility] Rx#: [id number] Oral 0 / 0 Other: # Voids 3 Date of Last Bowel Movement 11/06/17 11/07/17 11/07/17 # Incontinent Bowel Movements 3 - Urinary Catheter Management Indwelling Urethral Catheter Cath placed during this visit: no <Jazmine Christy - Last Filed: 11/07/17 15:43> Results - Labs CBC & Chem 7: 11/06/17 03:40 11/06/17 03:40 Laboratory Results - last 24 hr 11/06/17 11/06/17 03:40 03:40 WBC 20.1 H RBC 5.31 H Hgb 16.2 H Hct 50.2 H MCV 94.5 MCH 30.5 MCHC 32.3 RDW 14.6 Plt Count 301 MPV 8.1 Prelim Diff (Auto) Manual diff required WBC Differential Manual diff final Seg Neuts % (Manual) 35 Band Neuts % (Manual) 51 H Lymphocytes % (Manual) 9 Monocytes % (Manual) 5 Abs Neuts (Manual) 17.3 H Differential Comment . Platelet Estimate Normal Platelet Morphology Normal RBC Morphology Normal Sodium 150 H Potassium 3.3 L Chloride 116 H Carbon Dioxide 25.8 Anion Gap 8 BUN 63 H Creatinine 1.21 H Estimated GFR 42 L Random Glucose 106 Calcium 8.7 Total Bilirubin 0.9 AST 63 H ALT 58 H Alkaline Phosphatase 85 Total Protein 6.0 L Albumin 2.0 L <Sheila Fontanez - Last Filed: 11/06/17 16:36> - Labs CBC & Chem 7: 11/07/17 09:06 11/07/17 09:06 Laboratory Results - last 24 hr 11/07/17 11/07/17 11/07/17 02:00 09:06 09:06 WBC 19.6 H RBC 5.12 Hgb 15.9 H Hct 47.9 H MCV 93.6 MCH 31.2 MCHC 33.3 RDW 14.6 Plt Count 260 MPV 8.6 Neut % (Auto) 87.8 H Lymph % (Auto) 4.4 L [place] % (Auto) 7.5 Eos % (Auto) 0.1 Baso % (Auto) 0.2 Neut # (Auto) 17.2 H Lymph # (Auto) 0.9 L [place] # (Auto) 1.5 H Eos # (Auto) 0.0 Baso # (Auto) 0.0 WBC Differential . Differential Comment Auto diff final Hematology Comments Sodium 155 H Potassium 2.9 L* Chloride 118 H Carbon Dioxide 24.4 Anion Gap 13 BUN 72 H Creatinine 1.37 H Estimated GFR 37 L Random Glucose 121 H Calcium 8.6 Total Bilirubin 0.7 AST 49 H ALT 40 Alkaline Phosphatase 82 Total Protein 5.5 L Albumin 1.8 L Stl C.difficile Tox PCR Negative St C. diff Tox Epid 027 Negative <Jazmine Christy - Last Filed: 11/07/17 15:43> Assessment and Plan - Plan Abdominal pain- Pt reports intermittent abodminal pain for years, left sided, takes Tums with milks at home for attempt at relief. Noticed abdominal distention last night and then began having excruciating abdominal pain today, generalized over entire abdomen. Abdominal exam was deferred because pt does not want abdomen touched or palpated. - Nausea and vomiting- intermittent for a long time, no emesis since admission- denies hematemesis and coffee ground emesis Has never had EGD Last colonoscopy was multiple years ago and states findings of 4 polyps (8/2) CT reviewed --> Mild mural thickening of the left colon most characteristic of a mild colitis. Diffuse ileus of small and proximal large bowel. Mild ascites. Moderate pleural effusions. Moderate anasarca. Cardiomegaly with moderate coronary calcifications. Numerous tiny hepatic cysts with periportal edema in the liver. 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 C Diff was sent but cancelled by lab because stool was too formed. Pt abdomen still distended today, she is tender on exam, seems more tender on the left side. Remains NPO. Started on Levaquin and Flagyl by attending. ?ischemic colitis. Noted the patient does not want any invasive testing at this time 11/06/2017, patient now out of the intensive care setting and now in regular room. No stool studies noted. CT scan results reviewed tiny hepatic cyst improved periportal edema in the liver . possible mild colitis treatment regimen in process Current hemoglobin 16.2, no obvious bleeding or bloody stools. Patient does have some mild guarding to any abdominal palpation but daughter states abdomen has been better today patient's had 3 loose brown stools. Currently working with physical therapy to get up in chair. Daughter notes working with speech therapy, swallow evaluation. Currently recommended pured honey thick and continued evaluation for needs after discharge. We will continue to monitor symptoms related to mild colitis and response to treatment. Plan: Diet recommendations pured honey thickened per speech therapy Monitor labs Pepcid, Flagyl,, Levaquin Anti-medics Increase activity up in chair Supportive care Further recommendations based on clinical course Pt has been seen and examined by myself and Dr. Christy and this note is written on his behalf <Sheila Fontanez - Last Filed: 11/06/17 16:36> - Plan No active bleeding reported. Abdominal pain better - Attending Attestation The exam, history, and the medical decision-making described in the above note were completed with the assistance of the mid-level provider. I reviewed and agree with the findings presented. I attest that I had a [id number] encounter with the patient on the same day, and personally performed and documented my assessment and findings in the medical record. <Jazmine Christy - Last Filed: 11/07/17 15:43>
[2017-11-06] MEDS: SODIUM ACETATE IV.SIG SCH ×7 (22:29)
[2017-11-06] MEDS: [UNRECOGNIZED DRUG - OTHER] IV.SIG SCH ×7 (22:29)
[2017-11-06] MEDS: POTASSIUM CHLORIDE IV.SIG SCH ×7 (22:29)
[2017-11-07] MEDS: Aspirin 325 MG Tablet PO SCH (08:13)
[2017-11-07] MEDS: Lactobacillus Acidophilus/L. Spores Tablet PO SCH ×3 (08:14→19:39)
[2017-11-07] MEDS: Senna/Docusate Sodium 8.6/50 MG Tablet PO SCH (08:14)
[2017-11-07] MEDS: Atenolol 25 MG Tablet PO SCH ×2 (08:14→22:00)
[2017-11-07 09:35] LABS: Baso % (Auto) 0.2 % (0.0-2.0); Eos % (Auto) 0.1 % (0.0-4.0); Hematocrit 47.9 % (35.0-46.0); Hemoglobin 15.9 gm/dL (11.6-15.3); Lymph # (Auto) 0.9 th/mm3 (1.0-4.8); Lymph % (Auto) 4.4 % (9.0-44.0); Mean Corpuscular HGB Conc 33.3 % (32.0-36.0); Mean Corpuscular Hemoglobin 31.2 pg (27.0-34.0); Mean Corpuscular Volume 93.6 fL (80.0-100.0); Mean Platelet Volume 8.6 fL (7.0-11.0); Mono # (Auto) 1.5 th/mm3 (0.0-0.9); Mono % (Auto) 7.5 % (0.0-8.0); Neut # (Auto) 17.2 th/mm3 (1.8-7.7); Neut % (Auto) 87.8 % (16.0-70.0); Platelet Count 260 th/mm3 (150-450); Red Blood Count 5.12 mil/mm3 (4.00-5.30); Red Cell Distribution Width 14.6 % (11.6-17.2); White Blood Count 19.6 th/mm3 (4.0-11.0)
[2017-11-07 09:58] LABS: Albumin 1.8 g/dL (3.4-5.0); Anion Gap 13 meq/L (5-15); Aspartate Aminotransferase 49 U/L (15-37); Blood Urea Nitrogen 72 mg/dL (7-18); Calcium 8.6 mg/dL (8.5-10.1); Carbon Dioxide 24.4 meq/L (21.0-32.0); Chloride 118 meq/L (98-107); Glomerular Filtration Rate 37 mL/min (>89); Glucose,Random 121 mg/dL (74-106)
[2017-11-07 09:59] LABS: Alanine Aminotransferase 40 U/L (10-53); Sodium 155 meq/L (136-145)
[2017-11-07 10:02] LABS: Alkaline Phosphatase 82 U/L (45-117); Total Protein 5.5 g/dL (6.4-8.2)
[2017-11-07 10:05] LABS: Potassium 2.9 meq/L (3.5-5.1)
--- NOTE | 2017-11-07 11:10 | P.PN ---
Physical Exam Vital signs: Vital Signs 11/06/17 12:04 11/06/17 12:11 11/06/17 20:00 Temperature 98 F 98.2 F Pulse Rate 99 H 123 H 110 H Respiratory Rate 23 18 Blood Pressure 131/78 153/70 H Pulse Oximetry 100 98 11/06/17 21:30 11/07/17 00:00 11/07/17 04:00 Temperature 97.9 F 97.2 F L Pulse Rate 92 H 101 H 113 H Respiratory Rate 18 17 Blood Pressure 141/85 H 116/76 139/92 H Pulse Oximetry 98 97 11/07/17 04:16 11/07/17 08:00 Temperature 96.7 F L Pulse Rate 92 H Respiratory Rate 14 Blood Pressure 174/84 H Pulse Oximetry 98 97 Intake & Output 11/06/17 11/07/17 11/07/17 18:59 06:59 18:59 Intake Total 987.0719 / 987.0719 100 / 100 Balance 987.0719 / 987.0719 100 / 100 Intake: IV 987.0719 / 987.0719 100 / 100 Sodium Chloride 23.4% Inj 5.5 787.0719 / 787.0719 MEQ Sodium Acetate Inj 29.5 MEQ KCl Inj 20 MEQ Magnesium Chloride Inj 5 MEQ Calcium Chloride Inj 4.5 MEQ MVI-12 Inj 5 ML Folvite Inj 0.5 MG In TPN Fluid 2 Liter 1,000 ML @ 50 mls/hr IV.SIG Q20H [facility] Rx#: [id number] Flagyl 500 MG Inj 100 ML @ 100 200 / 200 100 / 100 mls/hr IV.SIG Q8H [facility] Rx#: [id number] Oral 0 / 0 Other: # Voids 3 Date of Last Bowel Movement 11/06/17 11/07/17 11/07/17 # Incontinent Bowel Movements 3 Narrative: Subjective Subjective Remarks/Hospital Course: This otherwise healthy 87-year-old woman developed difficulty with speech and a weak right side while eating breakfast this morning. She was brought to the emergency department where she ruled in as a stroke alert and after evaluation by Dr. Lozoya from neurology she received TPA. In the emergency department her right sided deficit was quite dense and her speech difficulties were pronounced. Both difficulties improved modestly at first and at that point she has been transported to the [facility]. Blood pressure control has been obtained with intravenous Cardene infusion. She developed some gastric retching and a worse headache, MRI and repeat CT indicate an area of possible bleeding posteriorly in the parietal region however the woman remains clearly improved from prior to the TPA. 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 She has a good sense of humor and asks appropriate questions. She can raise her right arm above gravity but the hand grasp remains weak. The patient has expressed quite clearly to me that she would not want any therapy that would involve ventilators or surgery. Although she is doing well at this time she would like us to continue full care but she prefers to be DNR status. 11/01: She is alert and oriented. Speech is modestly slurred. Her right sided extremity strength has improved. She has a pronounced right facial droop. She failed her swallow evaluation. Started on Catapres patch and intravenous labetalol and attempt to wean off the Cardene. She will eventually need an NG tube or Dobbhoff. SUBJECTIVE: 11/02: Remains on Nicardipine drip at 10 mg an hour. Failed swallow evaluation. Refusing Dobbhoff or NG tube. Will start TPN and switch to clevidipine drip. Right upper extremity with positive pronator drip and significant discoordination with facial droop right-sided 11/03: Currently off all antihypertensive infusions. Right upper extremity remains flaccid on my exam. Expressive aphasia persist according to nurse stable to slightly worsened overnight. 11/04/17 the patient is in bed she complains of pain in her belly. Daughter at bedside. Patient says she takes milk and sometimes Tums at home and that helps a lot. She has chronic abdominal pain. Is noted however with abdominal distention. Will do KUB. Will ask GI for consult. Patient does not have a GI doctor. She also says she has a history of multiple stomach ulcers. She is not vomiting blood. Had a diarrhea in the morning and normal color no blood in it. No fever or chills. 11/05/17 patient had 3 bowel movements since yesterday. The bowel movements are formed no more diarrhea. C. difficile was not performed is no diarrhea. Still with significant abdominal pain however seems to improve. No fever or chills. No nausea or vomiting. Patient refusing endoscopic procedures. 11/06/17 Refusing NGT. Still with abdominal pain diffuse. With profuse diarrhea. Will start Lactinex. No fevers. With abd pain. No /v/d/c. 11/07/17 In bed. Sleepy. Noted with low K replaced by IV. Patient still with abd pain. Diarrhea improved. No n/v. No fever or chills. Physical exam: General appearance: Elderly female, appears sleepy Head: Atraumatic and normocephalic. Lungs: Clear bilaterally. No wheezes or crackles. Heart: Irregular regular rhythm rate controlled, no jugular venous distention. Abdomen: Decreased bowel sounds, abdomen is less distended, diffusely tender to palpation. Extremities: Warm, well-perfused Neuro: Right arm remains with 1/5 power and right leg considerably 2-3/5. Discoordination right upper extremity. Right facial droop improved. Expressive aphasia the same. Alert. Assessment and Plan - Assessment and Plan GI: With abdominal pain and distention. History of stomach ulcers per patient and family Mild colitis questionable if ischemic colitis Diffuse ileus of small and proximal large bowel Hypokalemia. Monitor and replace . Give IV as patient is NPO KUB shows gas no other abnormality. CT with and without contrast abdomen reviewed; 1. Mild mural thickening of the left colon most characteristic of a mild colitis. 2. Diffuse ileus of small and proximal large bowel. 3. Mild ascites. Moderate pleural effusions. Moderate anasarca. 4. Cardiomegaly with moderate coronary calcifications. 5. Numerous tiny hepatic cysts with periportal edema in the liver. Also consulted GI appreciate recommendations C diff not able to perform as patient stool is forming Stool studies Started on IV antibiotics Flagyl and Levaquin Patient refusing endoscopic procedures PPIs Refusing NG tube With more diarrhea sent for C diff and stool studies. Cont abx Neuro/Psych: Left MCA CVA/right parietal CVA subacute MRI brain on admission revealed changes in the right frontal/posterior parietal right parietal regions possibly subacute ischemia. CTA head and neck showed atherosclerotic vessels with no significant stenosis CT brain 11/01 shows infarct and residual secondary hemorrhage along posterior parietal occipital mid convexities a Followed by Dr. Lozoya/neurology Continue aspirin 3 mg per rectum daily Start lipid lowering agent when able to swallow. Status post alteplase CV: Hypertensive emergency Home medications verapamil unknown dosage daily. Off nicardipine infusion Labetalol 10 mg IV every 2 hours as needed Troponin 0 0.08 on admission. Started on Catapres patch 0.2 mg weekly on 10/31 BP is better controlled. Resp: Acute hypoxic insufficiency Nasal cannula per stroke protocol. Currently on 2 L Incentive spirometry while awake Follow-up chest x-ray in a.m. GI: Hypoalbuminemia Failed swallow evaluation. Refuses Dobbhoff or NG tube. Daughter at bedside Started PPN at 50 cc an hour. Dulcolax suppository daily for bowel regimen Famotidine 20 mg daily for GI prophylaxis : No Ye catheter Endo: Sliding scale insulin to maintain euglycemia. Renal: Acute kidney injury Received 1 dose of furosemide Currently on normal saline 84-DC while PPN going Heme: Leukocytosis Monitor CBC daily. Follow trends. Check UA again ID: Monitor for signs and symptomatology infection CBC MSK: PT/OT evaluate and treat FEN: Hyponatremia Replace electrolytes as clinically indicated Access -Utilize peripheral IV. Central line if indicated Prophylaxis -GI -famotidine -DVT -SCD/holding pharmacological prophylaxis status post intracranial hemorrhage Code Status: DNR Discussed with the patient, family at bedside, nurse, GI - Urinary Catheter Management Indwelling Urethral Catheter Cath placed during this visit: yes, but has since been removed by the nurse Reason for continuing: Decision to DC catheter Insertion date: 10/31/17 Removal date: 11/01/17 Removal time: 15:00 Results - Labs CBC & Chem 7: 11/07/17 09:06 11/07/17 09:06 Laboratory Results - last 24 hr 11/07/17 11/07/17 11/07/17 02:00 09:06 09:06 WBC 19.6 H RBC 5.12 Hgb 15.9 H Hct 47.9 H MCV 93.6 MCH 31.2 MCHC 33.3 RDW 14.6 Plt Count 260 MPV 8.6 Neut % (Auto) 87.8 H Lymph % (Auto) 4.4 L [place] % (Auto) 7.5 Eos % (Auto) 0.1 Baso % (Auto) 0.2 Neut # (Auto) 17.2 H Lymph # (Auto) 0.9 L [place] # (Auto) 1.5 H Eos # (Auto) 0.0 Baso # (Auto) 0.0 WBC Differential . Differential Comment Auto diff final Hematology Comments Sodium 155 H Potassium 2.9 L* Chloride 118 H Carbon Dioxide 24.4 Anion Gap 13 BUN 72 H Creatinine 1.37 H Estimated GFR 37 L Random Glucose 121 H Calcium 8.6 Total Bilirubin 0.7 AST 49 H ALT 40 Alkaline Phosphatase 82 Total Protein 5.5 L Albumin 1.8 L Stl C.difficile Tox PCR Negative St C. diff Tox Epid 027 Negative
[2017-11-07] MEDS ORDERED: Potassium Chloride Inj 30 MEQ in Sodium Chlor 0.9% Inj 100 ML IV.CONT ONE (11:13)
[2017-11-07] MEDS ORDERED: Mag Sulf 1 gm/100 ml Premix 100 ML IV.SIG ONE (11:16)
--- NOTE | 2017-11-07 11:36 | P.PNGI ---
Subjective Interval history: Lying in the bed almost flat without any shortness of breath Color very pale patient very weak Some abdominal guarding but denies any abdominal pain <Sheila Fontanez - Last Filed: 11/07/17 11:36> Interval history: Seen and examined with RRT, no bleeding. GI pinto not desired by pt and family. Will sign off, reconsult as needed. Thank you <Jazmine Christy - Last Filed: 11/07/17 16:09> Physical Exam Vital signs: Vital Signs 11/06/17 12:04 11/06/17 12:11 11/06/17 20:00 Temperature 98 F 98.2 F Pulse Rate 99 H 123 H 110 H Respiratory Rate 23 18 Blood Pressure 131/78 153/70 H Pulse Oximetry 100 98 11/06/17 21:30 11/07/17 00:00 11/07/17 04:00 Temperature 97.9 F 97.2 F L Pulse Rate 92 H 101 H 113 H Respiratory Rate 18 17 Blood Pressure 141/85 H 116/76 139/92 H Pulse Oximetry 98 97 11/07/17 04:16 11/07/17 08:00 Temperature 96.7 F L Pulse Rate 92 H Respiratory Rate 14 Blood Pressure 174/84 H Pulse Oximetry 98 97 Intake & Output 11/06/17 11/07/17 11/07/17 18:59 06:59 18:59 Intake Total 987.0719 / 987.0719 100 / 100 Balance 987.0719 / 987.0719 100 / 100 Intake: IV 987.0719 / 987.0719 100 / 100 Sodium Chloride 23.4% Inj 5.5 787.0719 / 787.0719 MEQ Sodium Acetate Inj 29.5 MEQ KCl Inj 20 MEQ Magnesium Chloride Inj 5 MEQ Calcium Chloride Inj 4.5 MEQ MVI-12 Inj 5 ML Folvite Inj 0.5 MG In TPN Fluid 2 Liter 1,000 ML @ 50 mls/hr IV.SIG Q20H ARTUR Rx#: [id number] Flagyl 500 MG Inj 100 ML @ 100 200 / 200 100 / 100 mls/hr IV.SIG Q8H ARTUR Rx#: [id number] Oral 0 / 0 Other: # Voids 3 Date of Last Bowel Movement 11/06/17 11/07/17 11/07/17 # Incontinent Bowel Movements 3 - Constitutional mild distress - Routine HEENT Exam Head: Present: normocephalic ENT: Present: mucous membranes dry - Routine Neck Exam Present: supple - Routine Cardiovascular Exam Present: irregular rhythm - Routine Abdominal Exam Present: guarding (Soft minimal bowel sounds, taut, but softer over last 24hr. ) - Urinary Catheter Management Indwelling Urethral Catheter Cath placed during this visit: yes, but has since been removed by the nurse Reason for continuing: Decision to DC catheter Insertion date: 10/31/17 Removal date: 11/01/17 Removal time: 15:00 <Sheila Fontanez - Last Filed: 11/07/17 11:36> Vital signs: Vital Signs 11/06/17 20:00 11/06/17 21:30 11/07/17 00:00 Temperature 98.2 F 97.9 F Pulse Rate 110 H 92 H 101 H Respiratory Rate 18 18 Blood Pressure 153/70 H 141/85 H 116/76 Pulse Oximetry 98 98 11/07/17 04:00 11/07/17 04:16 11/07/17 08:00 Temperature 97.2 F L 96.7 F L Pulse Rate 113 H 92 H Respiratory Rate 17 14 Blood Pressure 139/92 H 174/84 H Pulse Oximetry 97 98 97 11/07/17 12:00 Temperature 97.1 F L Pulse Rate 86 Respiratory Rate 18 Blood Pressure 98/61 L Pulse Oximetry 98 Intake & Output 11/06/17 11/07/17 11/07/17 18:59 06:59 18:59 Intake Total 987.0719 / 987.0719 100 / 100 Balance 987.0719 / 987.0719 100 / 100 Intake: IV 987.0719 / 987.0719 100 / 100 Sodium Chloride 23.4% Inj 5.5 787.0719 / 787.0719 MEQ Sodium Acetate Inj 29.5 MEQ KCl Inj 20 MEQ Magnesium Chloride Inj 5 MEQ Calcium Chloride Inj 4.5 MEQ MVI-12 Inj 5 ML Folvite Inj 0.5 MG In TPN Fluid 2 Liter 1,000 ML @ 50 mls/hr IV.SIG Q20H [facility]UR Rx#: [id number] Flagyl 500 MG Inj 100 ML @ 100 200 / 200 100 / 100 mls/hr IV.SIG Q8H ARTUR Rx#: [id number] Oral 0 / 0 Other: # Voids 3 Date of Last Bowel Movement 11/06/17 11/07/17 11/07/17 # Incontinent Bowel Movements 3 - Urinary Catheter Management Indwelling Urethral Catheter Cath placed during this visit: no <Jazmine Christy - Last Filed: 11/07/17 16:09> Results - Labs CBC & Chem 7: 11/07/17 09:06 11/07/17 09:06 Laboratory Results - last 24 hr 11/07/17 11/07/17 11/07/17 02:00 09:06 09:06 WBC 19.6 H RBC 5.12 Hgb 15.9 H Hct 47.9 H MCV 93.6 MCH 31.2 MCHC 33.3 RDW 14.6 Plt Count 260 MPV 8.6 Neut % (Auto) 87.8 H Lymph % (Auto) 4.4 L [place] % (Auto) 7.5 Eos % (Auto) 0.1 Baso % (Auto) 0.2 Neut # (Auto) 17.2 H Lymph # (Auto) 0.9 L [place] # (Auto) 1.5 H Eos # (Auto) 0.0 Baso # (Auto) 0.0 WBC Differential . Differential Comment Auto diff final Hematology Comments Sodium 155 H Potassium 2.9 L* Chloride 118 H Carbon Dioxide 24.4 Anion Gap 13 BUN 72 H Creatinine 1.37 H Estimated GFR 37 L Random Glucose 121 H Calcium 8.6 Total Bilirubin 0.7 AST 49 H ALT 40 Alkaline Phosphatase 82 Total Protein 5.5 L Albumin 1.8 L Stl C.difficile Tox PCR Negative St C. diff Tox Epid 027 Negative <Sheila Fontanez - Last Filed: 11/07/17 11:36> - Labs CBC & Chem 7: 11/07/17 09:06 11/07/17 09:06 Laboratory Results - last 24 hr 11/07/17 11/07/17 11/07/17 02:00 09:06 09:06 WBC 19.6 H RBC 5.12 Hgb 15.9 H Hct 47.9 H MCV 93.6 MCH 31.2 MCHC 33.3 RDW 14.6 Plt Count 260 MPV 8.6 Neut % (Auto) 87.8 H Lymph % (Auto) 4.4 L [place] % (Auto) 7.5 Eos % (Auto) 0.1 Baso % (Auto) 0.2 Neut # (Auto) 17.2 H Lymph # (Auto) 0.9 L [place] # (Auto) 1.5 H Eos # (Auto) 0.0 Baso # (Auto) 0.0 WBC Differential . Differential Comment Auto diff final Hematology Comments Sodium 155 H Potassium 2.9 L* Chloride 118 H Carbon Dioxide 24.4 Anion Gap 13 BUN 72 H Creatinine 1.37 H Estimated GFR 37 L Random Glucose 121 H Calcium 8.6 Total Bilirubin 0.7 AST 49 H ALT 40 Alkaline Phosphatase 82 Total Protein 5.5 L Albumin 1.8 L Stl C.difficile Tox PCR Negative St C. diff Tox Epid 027 Negative <Jazmine Christy - Last Filed: 11/07/17 16:09> Assessment and Plan - Plan Abdominal pain- Pt reports intermittent abodminal pain for years, left sided, takes Tums with milks at home for attempt at relief. Noticed abdominal distention last night and then began having excruciating abdominal pain today, generalized over entire abdomen. Abdominal exam was deferred because pt does not want abdomen touched or palpated. - Nausea and vomiting- intermittent for a long time, no emesis since admission- denies hematemesis and coffee ground emesis Has never had EGD Last colonoscopy was multiple years ago and states findings of 4 polyps (11/05) CT reviewed --> Mild mural thickening of the left colon most characteristic of a mild colitis. Diffuse ileus of small and proximal large bowel. Mild ascites. Moderate pleural effusions. Moderate anasarca. Cardiomegaly with moderate coronary calcifications. Numerous tiny hepatic cysts with periportal edema in the liver. 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 C Diff was sent but cancelled by lab because stool was too formed. Pt abdomen still distended today, she is tender on exam, seems more tender on the left side. Remains NPO. Started on Levaquin and Flagyl by attending. ?ischemic colitis. Noted the patient does not want any invasive testing at this time 11/06/2017, patient now out of the intensive care setting and now in regular room. No stool studies noted. CT scan results reviewed tiny hepatic cyst improved periportal edema in the liver . possible mild colitis treatment regimen in process Current hemoglobin 16.2, no obvious bleeding or bloody stools. Patient does have some mild guarding to any abdominal palpation but daughter states abdomen has been better today patient's had 3 loose brown stools. Currently working with physical therapy to get up in chair. Daughter notes working with speech therapy, swallow evaluation. Currently recommended pured honey thick and continued evaluation for needs after discharge. We will continue to monitor symptoms related to mild colitis and response to treatment. 11/07/2017 patient is resting in the bed appears very weak. Denies any abdominal pain but guards her abdomen on exam. Spoke with nurse who states patient is still having some loose stools. CT noted on with mild colitis and currently receiving Flagyl and Levaquin treatment regimen IV. Note negative C C. difficile. Current hemoglobin 15.9 WBC count 19.6 which could be related to colitis and AST 49. Appreciate recommendations from speech therapy and monitor for any aspiration secondary to her generalized weakness. Currently patient is DO NOT RESUSCITATE DNR status but continue other aggressive measures. Patient does have soft bowel sounds, also currently being treated for hypokalemia. Plan: Diet recommendations pured honey thickened per speech therapy Monitor labs Better with probiotics Pepcid, Flagyl,, Levaquin Anti-medics Supportive care Pt has been per myself and Dr. Christy, note is written on his behalf <Sheila Fontanez - Last Filed: 11/07/17 11:36>
[2017-11-07] MEDS: Famotidine PF Inj 20 MG/2 ML Vial IV.PUSH SCH (17:15)
[2017-11-07] MEDS: Potassium Chlor 20 mEq Premix 20 MEQ/100 ML PIGGYBACK IV.SIG SCH ×2 (17:28→17:29)
[2017-11-07] MEDS ORDERED: Potassium Bicarbonate 25 MEQ Effervescent Tablet PO ONE (17:30)
[2017-11-08] MEDS: POTASSIUM CHLORIDE IV.SIG SCH ×14 (03:59→20:34)
[2017-11-08] MEDS: Senna/Docusate Sodium 8.6/50 MG Tablet PO SCH ×3 (03:59→20:59)
[2017-11-08] MEDS: SODIUM ACETATE IV.SIG SCH ×14 (03:59→20:34)
[2017-11-08] MEDS: Atenolol 25 MG Tablet PO SCH ×3 (03:59→20:59)
[2017-11-08] MEDS: [UNRECOGNIZED DRUG - OTHER] IV.SIG SCH ×14 (03:59→20:34)
--- NOTE | 2017-11-08 07:51 | P.PN ---
Physical Exam Vital signs: Vital Signs 11/07/17 08:00 11/07/17 12:00 11/07/17 16:00 Temperature 96.7 F L 97.1 F L 97.6 F Pulse Rate 92 H 86 77 Respiratory Rate 14 18 18 Blood Pressure 174/84 H 98/61 L 155/102 H Pulse Oximetry 97 98 97 11/07/17 20:00 11/08/17 00:00 11/08/17 04:00 Temperature 97.8 F 98.2 F 97.8 F Pulse Rate 101 H 108 H 103 H Respiratory Rate 19 22 18 Blood Pressure 149/65 H 137/65 149/82 H Pulse Oximetry 97 97 94 L Intake & Output 11/07/17 11/08/17 11/08/17 18:59 06:59 18:59 Intake Total 0 / 0 240 / 240 Output Total 400 / 400 Balance -400 / -400 240 / 240 Weight 57.2 kg Intake: Oral 0 / 0 240 / 240 Water Bolus Amount 0 / 0 Output: Urine 400 / 400 Other: # Voids 2 # Incontinent Voids 5 2 # Urine Diapers 0 Date of Last Bowel Movement 11/07/17 11/07/17 # Bowel Movements 2 # Incontinent Bowel Movements 3 Narrative: Subjective Subjective Remarks/Hospital Course: This otherwise healthy 87-year-old woman developed difficulty with speech and a weak right side while eating breakfast this morning. She was brought to the emergency department where she ruled in as a stroke alert and after evaluation by Dr. Lozoya from neurology she received TPA. In the emergency department her right sided deficit was quite dense and her speech difficulties were pronounced. Both difficulties improved modestly at first and at that point she has been transported to the [facility]. Blood pressure control has been obtained with intravenous Cardene infusion. She developed some gastric retching and a worse headache, MRI and repeat CT indicate an area of possible bleeding posteriorly in the parietal region however the woman remains clearly improved from prior to the TPA. 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 She has a good sense of humor and asks appropriate questions. She can raise her right arm above gravity but the hand grasp remains weak. The patient has expressed quite clearly to me that she would not want any therapy that would involve ventilators or surgery. Although she is doing well at this time she would like us to continue full care but she prefers to be DNR status. 11/01: She is alert and oriented. Speech is modestly slurred. Her right sided extremity strength has improved. She has a pronounced right facial droop. She failed her swallow evaluation. Started on Catapres patch and intravenous labetalol and attempt to wean off the Cardene. She will eventually need an NG tube or Dobbhoff. SUBJECTIVE: 11/02: Remains on Nicardipine drip at 10 mg an hour. Failed swallow evaluation. Refusing Dobbhoff or NG tube. Will start TPN and switch to clevidipine drip. Right upper extremity with positive pronator drip and significant discoordination with facial droop right-sided 11/03: Currently off all antihypertensive infusions. Right upper extremity remains flaccid on my exam. Expressive aphasia persist according to nurse stable to slightly worsened overnight. 11/04/17 the patient is in bed she complains of pain in her belly. Daughter at bedside. Patient says she takes milk and sometimes Tums at home and that helps a lot. She has chronic abdominal pain. Is noted however with abdominal distention. Will do KUB. Will ask GI for consult. Patient does not have a GI doctor. She also says she has a history of multiple stomach ulcers. She is not vomiting blood. Had a diarrhea in the morning and normal color no blood in it. No fever or chills. 11/05/17 patient had 3 bowel movements since yesterday. The bowel movements are formed no more diarrhea. C. difficile was not performed is no diarrhea. Still with significant abdominal pain however seems to improve. No fever or chills. No nausea or vomiting. Patient refusing endoscopic procedures. 11/06/17 Refusing NGT. Still with abdominal pain diffuse. With profuse diarrhea. Will start Lactinex. No fevers. With abd pain. No /v/d/c. 11/07/17 In bed. Sleepy. Noted with low K replaced by IV. Patient still with abd pain. Diarrhea improved. No n/v. No fever or chills. 11/08/17 Refused K supplement yesterday and today as well. The patient is noted more confused today and she is also noted hallucinating. Patient is agitated on /off. Patient asks for water she is however on thicken liquids. She is not eating much. Still with abdominal pain . No nausea. Still with diarrhea. Physical exam: General appearance: Elderly female, agitated on/off Head: Atraumatic and normocephalic. Lungs: Clear bilaterally. No wheezes or crackles. Heart: Irregular regular rhythm rate controlled, no jugular venous distention. Abdomen: Decreased bowel sounds, abdomen is less distended, diffusely tender to palpation. Extremities: Warm, well-perfused Neuro: Right arm remains with 1/5 power and right leg considerably 2-3/5. Discoordination right upper extremity. Right facial droop improved. Expressive aphasia the same. Alert. Assessment and Plan - Assessment and Plan GI: With abdominal pain and distention. History of stomach ulcers per patient and family Mild colitis questionable if ischemic colitis Diffuse ileus of small and proximal large bowel Hypokalemia. Monitor and replace . Give IV as patient is NPO KUB shows gas no other abnormality. CT with and without contrast abdomen reviewed; 1. Mild mural thickening of the left colon most characteristic of a mild colitis. 2. Diffuse ileus of small and proximal large bowel. 3. Mild ascites. Moderate pleural effusions. Moderate anasarca. 4. Cardiomegaly with moderate coronary calcifications. 5. Numerous tiny hepatic cysts with periportal edema in the liver. Also consulted GI appreciate recommendations C diff is neg Stool studies Started on IV antibiotics Flagyl and Levaquin, however patient has been refusing , also refusing IV site. Patient is however more confused 11/08. Also noted more lethargic , agitated on/off, placed on restraints. CT head w/o contrast stat reviewed and shows stable hematoma, no midline shift. Patient is placed on restraints , needs IV line, administer abx and KCl supplemet by IV Neuro is ff on case With hallucinations Also consult psych although changes might be related to stroke, infectious Patient refusing endoscopic procedures PPIs Also consult palliative care With more diarrhea sent for C diff and stool studies. Cont abx . C diff is neg Neuro/Psych: Left MCA CVA/right parietal CVA subacute MRI brain on admission revealed changes in the right frontal/posterior parietal right parietal regions possibly subacute ischemia. CTA head and neck showed atherosclerotic vessels with no significant stenosis CT brain 11/01 shows infarct and residual secondary hemorrhage along posterior parietal occipital mid convexities a Followed by Dr. Lozoya/neurology Continue aspirin 3 mg per rectum daily Start lipid lowering agent when able to swallow. Status post alteplase CV: Hypertensive emergency Home medications verapamil unknown dosage daily. Off nicardipine infusion Labetalol 10 mg IV every 2 hours as needed Troponin 0 0.08 on admission. Started on Catapres patch 0.2 mg weekly on 10/31 BP is better controlled. Resp: Acute hypoxic insufficiency Nasal cannula per stroke protocol. Currently on 2 L Incentive spirometry while awake Follow-up chest x-ray in a.m. GI: Hypoalbuminemia Failed swallow evaluation. Refuses Dobbhoff or NG tube. Daughter at bedside Started PPN at 50 cc an hour. Dulcolax suppository daily for bowel regimen Famotidine 20 mg daily for GI prophylaxis : No Ye catheter Endo: Sliding scale insulin to maintain euglycemia. Renal: Acute kidney injury Received 1 dose of furosemide Currently on normal saline 84-DC while PPN going Heme: Leukocytosis Monitor CBC daily. Follow trends. Check UA again ID: Monitor for signs and symptomatology infection CBC MSK: PT/OT evaluate and treat FEN: Hyponatremia Replace electrolytes as clinically indicated Access -Utilize peripheral IV. Central line if indicated Prophylaxis -GI -famotidine -DVT -SCD/holding pharmacological prophylaxis status post intracranial hemorrhage Code Status: DNR Discussed with the patient, family at bedside, nurse, GI 11/08 more confused and also with hallucinations. Refusing labs, meds. CT head no change, consult psych. Placed on restraints , IV established and to receive IV abx, KCl supplement as with persistent hypokalemia Also consult palliative care , family is considering hospice - Urinary Catheter Management Indwelling Urethral Catheter Cath placed during this visit: yes, but has since been removed by the nurse Reason for continuing: Decision to DC catheter Insertion date: 10/31/17 Removal date: 11/01/17 Removal time: 15:00 Results - Labs CBC & Chem 7: 11/07/17 09:06 11/07/17 09:06 Laboratory Results - last 24 hr 11/07/17 11/07/17 09:06 09:06 WBC 19.6 H RBC 5.12 Hgb 15.9 H Hct 47.9 H MCV 93.6 MCH 31.2 MCHC 33.3 RDW 14.6 Plt Count 260 MPV 8.6 Neut % (Auto) 87.8 H Lymph % (Auto) 4.4 L [place] % (Auto) 7.5 Eos % (Auto) 0.1 Baso % (Auto) 0.2 Neut # (Auto) 17.2 H Lymph # (Auto) 0.9 L [place] # (Auto) 1.5 H Eos # (Auto) 0.0 Baso # (Auto) 0.0 WBC Differential . Differential Comment Auto diff final Hematology Comments Sodium 155 H Potassium 2.9 L* Chloride 118 H Carbon Dioxide 24.4 Anion Gap 13 BUN 72 H Creatinine 1.37 H Estimated GFR 37 L Random Glucose 121 H Calcium 8.6 Total Bilirubin 0.7 AST 49 H ALT 40 Alkaline Phosphatase 82 Total Protein 5.5 L Albumin 1.8 L
[2017-11-08] MEDS: Lactobacillus Acidophilus/L. Spores Tablet PO SCH ×3 (09:55→17:57)
[2017-11-08] MEDS: Aspirin 325 MG Tablet PO SCH (09:55)
[2017-11-08] MEDS ORDERED: Potassium Phosphate 500 MG Soluble Tablet PO ONE (10:24)
--- NOTE | 2017-11-08 16:54 | CT ---
EXAM DATE: 11/08/2017 4:37 PM EDT AGE/SEX: 87 years / Female INDICATIONS: Altered Mental Status CLINICAL DATA: This is the patient's subsequent encounter. Patient reports that signs and symptoms h ave been present for 1 day and indicates a pain score of 0/10. MEDICAL/SURGICAL HISTORY: Stroke. Hypertension. Aneurysm, intracranial. Atrial Fib None. RADIATION DOSE: 66.36 CTDI (mGy) ; Patient motion [place] [facility] [place]. . TECHNIQUE: CT of the head without contrast. Using automated exposure control and adjustment of the mA and/or kV according to patient size, radiation dose was kept as low as reasonably achievable to ob tain optimal diagnostic quality images. DICOM format image data is available electronically for revi ew and comparison. FINDINGS: There is a stable hemorrhagic infarct in the right parieto-occipital region. No new mass effect or mi dline shift. No new hemorrhage. Ventricular size is stable. Small left frontal hygroma is stable. Par anasal sinuses are clear. CONCLUSION: 1. Stable partially hemorrhagic infarct in the right parieto-occipital region. . Electronically signed by: Robert Gross MD 11/08/2017 4:53 PM EDT
--- NOTE | 2017-11-08 16:59 | OTSOAPIP ---
TIME SESSION COMPLETED: TREATMENT TIME: 0 MINS. CHART REVIEWED. ATTEMPTED TO EVALUATE PATIENT HOWEVER PATIENT WAS OFF THE UNIT FOR A PROCEDURE. PLAN: WILL SEE WHEN ABLE OR NEXT TREATMENT DAY Therapist: Young Sheehan Signature on file
[2017-11-08] MEDS: Famotidine PF Inj 20 MG/2 ML Vial IV.PUSH SCH (17:56)
--- NOTE | 2017-11-09 08:25 | P.PNNEU ---
Subjective Active Medications: Active Medications Acetaminophen (Tylenol) 650 mg PO Q6H PRN PRN Reason: PAIN 1-10 AND/OR FEVER >101F Al Hydroxide/Mg Hydroxide (Milk Of Magnjanna Liq) 30 ml PO Q12H PRN PRN Reason: Mild Constipation Albuterol (Albuterol Neb (Prn)) 2.5 mg NEB Q2HR NEB PRN PRN Reason: WHEEZING Last Admin: 11/02/17 08:15 Dose: 2.5 mg Albuterol (Duoneb Neb (Prn)) 1 ampul NEB Q4HR NEB PRN PRN Reason: SHORTNESS OF BREATH Aspirin (Aspirin) 325 mg PO DAILY [facility] Last Admin: 11/08/17 09:55 Dose: Not Given Atenolol (Tenormin) 12.5 mg PO BID [facility] Last Admin: 11/08/17 20:59 Dose: 12.5 mg Bisacodyl (Dulcolax Supp) 10 mg RECTAL DAILY PRN PRN Reason: SEVERE CONSITIPATION Clonidine HCl (Catapress-Tts 0.2 Mg Patch.7d) 1 patch T-DERMAL Q7D [facility] Last Admin: 11/08/17 17:55 Dose: Not Given Famotidine (Pepcid Pf Inj) 20 mg IV.PUSH Q24H [facility] Last Admin: 11/08/17 17:56 Dose: Not Given Furosemide (Lasix Inj) 40 mg IV.PUSH BID@0900,1800 [facility] Last Admin: 11/08/17 17:57 Dose: 40 mg Acetaminophen (Ofirmev Inj) 1,000 mg in 100 mls @ 400 mls/hr IV.SIG Q8H PRN PRN Reason: PAIN SCALE 1 TO 10 Metronidazole/Sodium Chloride (Flagyl 500 Mg Inj) 100 mls @ 100 mls/hr IV.SIG Q8H [facility] Last Admin: 11/09/17 06:17 Dose: 100 mls/hr Levofloxacin/Dextrose (Levaquin 750 Mg Premix Inj) 150 mls @ 100 mls/hr IV.SIG Q48H [facility] Last Admin: 11/07/17 13:31 Dose: 150 mls/hr Sodium Acetate 29.5 meq/Potassium Chloride 25 meq/Magnesium Chloride 5 meq/ Calcium Chloride 4.5 meq/Multivitamins 5 ml/ Folic Acid 0.5 mg/ Amino Acids/ Electrolytes/Dextrose 1,030.8219 mls @ 49.699 mls/hr IV.SIG Q24H [facility] Last Admin: 11/08/17 20:34 Dose: 49.7 mls/hr Labetalol HCl (Trandate Inj) 10 mg IV.PUSH Q1H PRN PRN Reason: SBP>160, DBP>90 Last Admin: 11/04/17 16:17 Dose: 10 mg Lactobacillus Acidophilus (Lactinex) 1 tab PO TID [facility] Last Admin: 11/08/17 17:57 Dose: Not Given Lactulose (Lactulose Liq) 30 ml PO DAILY PRN PRN Reason: SEVERE CONSITIPATION Miscellaneous (Pill Splitter) 1 each OTHER UNSCH PRN PRN Reason: SEE LABEL COMMENTS Ondansetron HCl (Zofran Odt) 4 mg PO Q6H PRN PRN Reason: NAUSEA OR VOMITING Last Admin: 11/02/17 00:20 Dose: 4 mg Patch Removal (Remove Old Patch) 1 each T-DERMAL Q7D [facility] Last Admin: 11/08/17 17:55 Dose: Not Given Potassium Chloride (K-Dur) 20 meq PO BID [facility] Last Admin: 11/08/17 21:00 Dose: Not Given Senna/Docusate Sodium (Juany-Colace) 1 tab PO BID [facility] Last Admin: 11/08/17 20:59 Dose: Not Given Sennosides (Senokot) 17.2 mg PO Q12H PRN PRN Reason: Moderate Constipation Simethicone (Phazyme Chew) 125 mg PO TID PRN PRN Reason: GAS RETENTION Sodium Chloride (Ns Flush) 2 ml IV.FLUSH BID [facility] Last Admin: 11/08/17 21:00 Dose: 2 ml Sodium Chloride (Ns Flush) 2 ml IV.FLUSH UNSCH PRN PRN Reason: FLUSH AFTER USING IV ACCESS Allergies/Adverse Reactions: Allergies Allergy/AdvReac Type Severity Reaction Status Date / Time Influenza Virus Vaccines Allergy Severe HIVES Verified 11/02/17 13:37 lansoprazole Allergy Severe "SHUTS Verified 11/02/17 13:37 DOWN KINDEYS" meperidine Allergy Severe SYNCOPY Verified 11/02/17 13:37 penicillin G Allergy Severe Anaphylaxis Verified 11/02/17 13:37 tetanus toxoid, adsorbed Allergy Severe RESP Verified 11/02/17 13:37 DISTRESS Sulfa (Sulfonamide Allergy Mild Nausea Verified 11/02/17 13:37 Antibiotics) erythromycin base Allergy Unknown Nausea Verified 10/31/17 10:27 morphine Allergy Unknown Nausea Verified 10/31/17 10:27 nitroglycerin Allergy Unknown Nausea Verified 10/31/17 10:27 prochlorperazine Allergy Unknown Nausea Verified 10/31/17 10:27 tetanus immune globulin Allergy Unknown Nausea Verified 10/31/17 10:27 atenolol AdvReac Severe Nightmare Verified 11/02/17 13:38 EES AdvReac Mild Nausea Uncoded 10/31/17 10:27 Physical Exam Vital signs: Vital Signs 11/08/17 12:00 11/08/17 16:00 11/08/17 20:00 Temperature 96.7 F L 98.3 F 97.7 F Pulse Rate 129 H 122 H 112 H Respiratory Rate 18 18 18 Blood Pressure 167/82 H 167/80 H 160/103 H Pulse Oximetry 96 96 98 11/09/17 00:00 11/09/17 04:00 Temperature 98.2 F 98.9 F Pulse Rate 106 H 121 H Respiratory Rate 20 18 Blood Pressure 140/74 114/77 Pulse Oximetry 99 98 Intake & Output 11/08/17 11/09/17 11/09/17 18:59 06:59 18:59 Intake Total 0 / 0 100 / 100 Output Total 400 / 400 Balance -400 / -400 100 / 100 Weight 55.2 kg Intake: IV 100 / 100 Flagyl 500 MG Inj 100 ML @ 100 100 / 100 mls/hr IV.SIG Q8H [facility] Rx#: [id number] Water Bolus Amount 0 / 0 Output: Urine 400 / 400 Other: # Voids 2 # Incontinent Voids 2 # Urine Diapers 0 Date of Last Bowel Movement 11/08/17 11/08/17 # Bowel Movements 2 # Incontinent Bowel Movements 3 Narrative: alert no sob talking better moves r side well not hand still 0/5 there and r droop 0x3 now - Urinary Catheter Management Indwelling Urethral Catheter Cath placed during this visit: yes, but has since been removed by the nurse Reason for continuing: Decision to DC catheter Insertion date: 10/31/17 Removal date: 11/01/17 Removal time: 15:00 Review/Management - Review/Management Plan: imp afib some hemorrhagic component from r mca 2 cva probably occurred in last 2 months with some falls tiny on mri left mca cortical infarct must be slightly larger than mri shows 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 -11/03/17 echo mod mr looks worse this am and some sob check cxr abg and mri brain i dw med team 11/04/17 no new cva cxr chf still i dw med team doing better today sx mr mod chf afib will need to fu cards at some point 11/05/17 doing stable neuro gi sissue watch chf breathing better neurowise cleared for rehab dc will anticoag in few weeks -------- 11/06/17 speech stronger abd softer colitis stable neuro chf better she can dc neurowise and in few weeks i will start coumadin 11/09/17 she needs to be dc to rehab been here long enough and some hospital psychosis change levequin to diff abt as it can cause confusion anticoag as above oob dc restraints Daily Summary: imp left mca and some r parietal some ich asa for now swallow eval
--- NOTE | 2017-11-09 08:32 | P.PN ---
Physical Exam Vital signs: Vital Signs 11/08/17 12:00 11/08/17 16:00 11/08/17 20:00 Temperature 96.7 F L 98.3 F 97.7 F Pulse Rate 129 H 122 H 112 H Respiratory Rate 18 18 18 Blood Pressure 167/82 H 167/80 H 160/103 H Pulse Oximetry 96 96 98 11/09/17 00:00 11/09/17 04:00 Temperature 98.2 F 98.9 F Pulse Rate 106 H 121 H Respiratory Rate 20 18 Blood Pressure 140/74 114/77 Pulse Oximetry 99 98 Intake & Output 11/08/17 11/09/17 11/09/17 18:59 06:59 18:59 Intake Total 0 / 0 100 / 100 Output Total 400 / 400 Balance -400 / -400 100 / 100 Weight 55.2 kg Intake: IV 100 / 100 Flagyl 500 MG Inj 100 ML @ 100 100 / 100 mls/hr IV.SIG Q8H [facility] Rx#: [id number] Water Bolus Amount 0 / 0 Output: Urine 400 / 400 Other: # Voids 2 # Incontinent Voids 2 # Urine Diapers 0 Date of Last Bowel Movement 11/08/17 11/08/17 # Bowel Movements 2 # Incontinent Bowel Movements 3 Narrative: Subjective Subjective Remarks/Hospital Course: This otherwise healthy 87-year-old woman developed difficulty with speech and a weak right side while eating breakfast this morning. She was brought to the emergency department where she ruled in as a stroke alert and after evaluation by Dr. Lozoya from neurology she received TPA. In the emergency department her right sided deficit was quite dense and her speech difficulties were pronounced. Both difficulties improved modestly at first and at that point she has been transported to the [facility]. Blood pressure control has been obtained with intravenous Cardene infusion. She developed some gastric retching and a worse headache, MRI and repeat CT indicate an area of possible bleeding posteriorly in the parietal region however the woman remains clearly improved from prior to the TPA. Her speech and reception clerk are near normal, hampered only by her difficulty hearing. She has a good sense of humor and asks appropriate questions. She can raise her right arm above gravity but the hand grasp remains weak. The patient has expressed quite clearly to me that she would not want any therapy that would involve ventilators or surgery. Although she is doing well at this time she would like us to continue full care but she prefers to be DNR status. 11/01: She is alert and oriented. Speech is modestly slurred. Her right sided extremity strength has improved. She has a pronounced right facial droop. She failed her swallow evaluation. Started on Catapres patch and intravenous labetalol and attempt to wean off the Cardene. She will eventually need an NG tube or Dobbhoff. SUBJECTIVE: 11/02: Remains on Nicardipine drip at 10 mg an hour. Failed swallow evaluation. Refusing Dobbhoff or NG tube. Will start TPN and switch to clevidipine drip. Right upper extremity with positive pronator drip and significant discoordination with facial droop right-sided 11/03: Currently off all antihypertensive infusions. Right upper extremity remains flaccid on my exam. Expressive aphasia persist according to nurse stable to slightly worsened overnight. 11/04/17 the patient is in bed she complains of pain in her belly. Daughter at bedside. Patient says she takes milk and sometimes Tums at home and that helps a lot. She has chronic abdominal pain. Is noted however with abdominal distention. Will do KUB. Will ask GI for consult. Patient does not have a GI doctor. She also says she has a history of multiple stomach ulcers. She is not vomiting blood. Had a diarrhea in the morning and normal color no blood in it. No fever or chills. 11/05/17 patient had 3 bowel movements since yesterday. The bowel movements are formed no more diarrhea. C. difficile was not performed is no diarrhea. Still with significant abdominal pain however seems to improve. No fever or chills. No nausea or vomiting. Patient refusing endoscopic procedures. 11/06/17 Refusing NGT. Still with abdominal pain diffuse. With profuse diarrhea. Will start Lactinex. No fevers. With abd pain. No /v/d/c. 11/07/17 In bed. Sleepy. Noted with low K replaced by IV. Patient still with abd pain. Diarrhea improved. No n/v. No fever or chills. 11/08/17 Refused K supplement yesterday and today as well. The patient is noted more confused today and she is also noted hallucinating. Patient is agitated on /off. Patient asks for water she is however on thicken liquids. She is not eating much. Still with abdominal pain . No nausea. Still with diarrhea. 11/09/17 the patient is more awake and alert she is feeling better today. Still with low potassium she agrees to have potassium by mouth. She was not eating very well. Still with abdominal pain however improving. She would like to go home however she is too weak. Off restraints. PT recommends rehab. Physical exam: General appearance: Elderly female, less agitated. Off restraints Head: Atraumatic and normocephalic. Lungs: Clear bilaterally. No wheezes or crackles. Heart: Irregular regular rhythm rate controlled, no jugular venous distention. Abdomen: Decreased bowel sounds, abdomen is less distended, diffusely tender to palpation. Extremities: Warm, well-perfused Neuro: Right arm remains with 1/5 power and right leg considerably 2-3/5. Discoordination right upper extremity. Right facial droop improved. Expressive aphasia the same. Alert. Assessment and Plan - Assessment and Plan GI: With abdominal pain and distention. History of stomach ulcers per patient and family Mild colitis questionable if ischemic colitis Diffuse ileus of small and proximal large bowel Hypokalemia. Monitor and replace . Give IV as patient is NPO KUB shows gas no other abnormality. CT with and without contrast abdomen reviewed; 1. Mild mural thickening of the left colon most characteristic of a mild colitis. 2. Diffuse ileus of small and proximal large bowel. 3. Mild ascites. Moderate pleural effusions. Moderate anasarca. 4. Cardiomegaly with moderate coronary calcifications. 5. Numerous tiny hepatic cysts with periportal edema in the liver. Also consulted GI appreciate recommendations C diff is neg Stool studies Started on IV antibiotics Flagyl and Levaquin, however patient has been refusing , also refusing IV site. Patient is however more confused 11/08. Also noted more lethargic , agitated on/off, placed on restraints. CT head w/o contrast stat reviewed and shows stable hematoma, no midline shift. Patient is placed on restraints , currently she is off restraints. Needs IV line, administer abx and KCl supplemet by IV as needed. Currently she is taking by mouth supplement. Discontinue Levaquin and start ciprofloxacin instead. Continue Flagyl. Will have ciprofloxacin and Flagyl at discharge. Neuro is ff on case. Patient She is not with hallucinations anymore. Also consult psych although changes might be related to stroke, infectious. Will discontinue psych consult. Discussed with psychiatry the patient and family. Patient refusing endoscopic procedures PPIs Also consult palliative care With more diarrhea sent for C diff and stool studies. Cont abx . C diff is neg Neuro/Psych: Left MCA CVA/right parietal CVA subacute MRI brain on admission revealed changes in the right frontal/posterior parietal right parietal regions possibly subacute ischemia. CTA head and neck showed atherosclerotic vessels with no significant stenosis CT brain 11/01 shows infarct and residual secondary hemorrhage along posterior parietal occipital mid convexities a Followed by Dr. Lozoya/neurology Continue aspirin 3 mg per rectum daily Start lipid lowering agent when able to swallow. Status post alteplase CV: Hypertensive emergency Home medications verapamil unknown dosage daily. Off nicardipine infusion Labetalol 10 mg IV every 2 hours as needed Troponin 0 0.08 on admission. Started on Catapres patch 0.2 mg weekly on 10/31 BP is better controlled. Resp: Acute hypoxic insufficiency Nasal cannula per stroke protocol. Currently on 2 L Incentive spirometry while awake Follow-up chest x-ray in a.m. GI: Hypoalbuminemia Failed swallow evaluation. Refuses Dobbhoff or NG tube. Daughter at bedside Started PPN at 50 cc an hour. Dulcolax suppository daily for bowel regimen Famotidine 20 mg daily for GI prophylaxis : No Ye catheter Endo: Sliding scale insulin to maintain euglycemia. Renal: Acute kidney injury Received 1 dose of furosemide Currently on normal saline 84-DC while PPN going Heme: Leukocytosis Monitor CBC daily. Follow trends. Check UA again ID: Monitor for signs and symptomatology infection CBC MSK: PT/OT evaluate and treat FEN: Hyponatremia Replace electrolytes as clinically indicated Access -Utilize peripheral IV. Central line if indicated Prophylaxis -GI -famotidine -DVT -SCD/holding pharmacological prophylaxis status post intracranial hemorrhage Code Status: DNR Discussed with the patient, family at bedside, nurse, GI, palliative care, psychiatry 11/08 more confused and also with hallucinations. Refusing labs, meds. CT head no change, consult psych. Placed on restraints , IV established and to receive IV abx, KCl supplement as with persistent hypokalemia. Not eatign low K , still with diarrhea on /off Also consult palliative care , family is considering hospice 11/09 less confused she is not agitated anymore off restraints. Agrees to take potassium supplement. Appears improving. Levaquin discontinued and changed to ciprofloxacin as might contribute to patient confusion. - Urinary Catheter Management Indwelling Urethral Catheter Cath placed during this visit: yes, but has since been removed by the nurse Reason for continuing: Decision to DC catheter Insertion date: 10/31/17 Removal date: 11/01/17 Removal time: 15:00 Results - Labs CBC & Chem 7: 11/09/17 13:44 11/09/17 13:44 - Imaging Impressions Head CT 11/08/17 00:00 CONCLUSION: 1. Stable partially hemorrhagic infarct in the right parieto-occipital region. .
[2017-11-09] MEDS: Ciprofloxacin 400 MG/200 ML 400 MG/200 ML PIGGYBACK IV.SIG SCH ×2 (10:09→17:35)
[2017-11-09] MEDS: Lactobacillus Acidophilus/L. Spores Tablet PO SCH ×3 (10:16→17:42)
[2017-11-09] MEDS: Senna/Docusate Sodium 8.6/50 MG Tablet PO SCH (10:17)
[2017-11-09] MEDS: Atenolol 25 MG Tablet PO SCH ×2 (10:17→21:23)
[2017-11-09] MEDS: Aspirin 325 MG Tablet PO SCH (10:18)
--- NOTE | 2017-11-09 10:51 | P.CONPAL ---
Consult Service: Palliative Care Requesting Physician: Jessica Mayes Reason for Consult: a. To assist with evaluation and management of symptoms including: pain, debility, agitation b. To assist medical decision maker(s) with: better understanding of current medical conditions; weighing benefits/burdens of medical treatment options; making medical treatment decisions. Primary Care Provider: UNKNOWN History of Present Illness History of Present Illness: This is an 87 yo female with hx AF on ASA, CHF, TIAs who was admitted under stroke alert 10/31. She was brought by EMS after developing slurred speech, right side weakness that morning. On arrival she had complaint of headache. BP was 227/106. CXR showed no acute findings, heac CT showed chronic small vessel ischemic and atrophic changes, Neck CTA showes significant atherosclerotic plaques involving aorta and bilat internal carotids, sfot plaque left internal coronary artery. Neurology consulted, felt this was likely left middle crebral artery infarct. She was given tPA. Reportedly her symptoms improved somewhat and she then developed nausea and worse headache. Head MRI suggestive subacute necrosis right frontal lobe and posterior parietal lobe, possible subacute right lacunar infarct, possibility of hemorrhage should be entertained, particularly in right posterior parietal infact. CT head showed increased density right posterior parietal lobe, high possibility of hemorrhage. Reportedly at this time she requested code status to be DNR and told ore trimmer she would not want to be on a ventilator. * follow up head CT 11/01 stable appearance * per neuro small left MCA cortical infarct, felt to be larger than MRI shows as pt's deficits significant * 11/01 CCM notes modestly slurred speech, improved right side extremity strength , pronounced right facial droop; speech therapy noted pt having difficult swallowing saliva, failed swallow eval * 11/02 echo shows EF 55-60%, moderate to severe tricuspid valve regurg, systolic pulmonary pressure elevated at 60mmHg; pt refusing tube feed, PPN starting * 11/03 head MRI shows evolving bilat infarcts most prominent posterior right temporal lobe with small volume hemorrhage, no acute infarct; CXR showing bilat pleural effusions, lower lobe consolidation bilat, worsening; pt cleared by COFFEE BREAK ATTENDANT for puree and honey thick fluid * 11/04 CXR shows increasing effusion right lung, stable hazy opacity left lung, suggestive CHF; pt now with abd pain, has diffuse ileus, possible mild colitis, anasarca as seen on CT * 11/07 ileus improved, pt still with diarrhea but refusing GI work up * 11/[address] shows stable partially hemorrhagic infarct in right parieto- occipital region On my evaluation pt is in bed, has BUE restraints, is napping and appears comfortable. She tells me she wants to go home and then wants to to do rehab. She asks for Toño's vapo rub to be applied to her chest. She then asks me, "Maria Del Rosario, can you stay here tonight?" She repeatedly asks for "real water" and indicates that she does not like thickened liquids. She admits abd pain and is tender on the right side during lung auscultation. Her abd is mildly distended and bowel sounds are hypoactive. Her speech is slurred and difficult to understand but she seems able to communicate basic needs. Function/Cognitive Trajectory: Pt was ambulatory and independent in ADLs prior to this hospitalization. She was living at home. She had a fall 2 weeks ago but per family she was still cognitively sharp and independent, able to cook and care for herself and balance checkbook. Review of Systems ROS pt limited d/t mental status- mild confusion, dysarthria. completed to best of my ability from chart, family unobtainable due to mental status Constitutional: Reports headache(s) Ears, Nose, Mouth, and Throat: Reports abnormal hearing Cardiovascular: Denies shortness of breath Respiratory: Reports chest congestion Gastrointestinal: Reports abdominal pain, Reports loose stools Musculoskeletal: Reports abnormal walking Neurologic: Reports abnormal speech, Reports confusion, Reports localized weakness, Reports other visual disturbances, Reports unsteadiness, Reports weakness Psychiatric: Reports seeing things others do not see [facility] - History History Provided By: Family Member - Medical History Medical History: Medical History (Last Reviewed 11/10/17 @ 09:03 by Ronel Mai) Afib Brain aneurysm Heart murmur Hypertension Stroke TIA (transient ischemic attack) - Surgical History Surgical History: Surgical History (Last Updated 11/09/17 @ 13:03 by FAUSTO Fabian) Status post wrist surgery - Tobacco History Second Hand Smoke Exposure: No Tobacco Use In Past 30 Days: No Smoking Status: Never smoker Tobacco Type: Cigarettes - Alcohol History How Often Do You Have a Drink Containing Alcohol: Never - Substance Use History Substance History: No History of Abuse - Travel History Recent Travel in the [facility] Within the Last 8 Weeks: No Recent Travel Out of the Country Within the Last 8 Weeks: No - Immunization History Hx Influenza Vaccine This Season: No Medications and Allergies Allergies Allergy/AdvReac Type Severity Reaction Status Date / Time Influenza Virus Vaccines Allergy Severe HIVES Verified 11/02/17 13:37 lansoprazole Allergy Severe "SHUTS Verified 11/02/17 13:37 DOWN KINDEYS" meperidine Allergy Severe SYNCOPY Verified 11/02/17 13:37 penicillin G Allergy Severe Anaphylaxis Verified 11/02/17 13:37 tetanus toxoid, adsorbed Allergy Severe RESP Verified 11/02/17 13:37 DISTRESS Sulfa (Sulfonamide Allergy Mild Nausea Verified 11/02/17 13:37 Antibiotics) erythromycin base Allergy Unknown Nausea Verified 10/31/17 10:27 morphine Allergy Unknown Nausea Verified 10/31/17 10:27 nitroglycerin Allergy Unknown Nausea Verified 10/31/17 10:27 prochlorperazine Allergy Unknown Nausea Verified 10/31/17 10:27 tetanus immune globulin Allergy Unknown Nausea Verified 10/31/17 10:27 atenolol AdvReac Severe Nightmare Verified 11/02/17 13:38 EES AdvReac Mild Nausea Uncoded 10/31/17 10:27 Home Medications Medication Instructions Recorded Confirmed Type verapamil 11/02/17 History Active Medications: Active Medications Acetaminophen (Tylenol) 650 mg PO Q6H PRN PRN Reason: PAIN 1-10 AND/OR FEVER >101F Al Hydroxide/Mg Hydroxide (Milk Of Magnjanna Liq) 30 ml PO Q12H PRN PRN Reason: Mild Constipation Albuterol (Albuterol Neb (Prn)) 2.5 mg NEB Q2HR NEB PRN PRN Reason: WHEEZING Last Admin: 11/02/17 08:15 Dose: 2.5 mg Albuterol (Duoneb Neb (Prn)) 1 ampul NEB Q4HR NEB PRN PRN Reason: SHORTNESS OF BREATH Aspirin (Aspirin) 325 mg PO DAILY [facility] Last Admin: 11/08/17 09:55 Dose: Not Given Atenolol (Tenormin) 12.5 mg PO BID [facility] Last Admin: 11/08/17 20:59 Dose: 12.5 mg Bisacodyl (Dulcolax Supp) 10 mg RECTAL DAILY PRN PRN Reason: SEVERE CONSITIPATION Clonidine HCl (Catapress-Tts 0.2 Mg Patch.7d) 1 patch T-DERMAL Q7D [facility] Last Admin: 11/08/17 17:55 Dose: Not Given Famotidine (Pepcid Pf Inj) 20 mg IV.PUSH Q24H [facility] Last Admin: 11/08/17 17:56 Dose: Not Given Furosemide (Lasix Inj) 40 mg IV.PUSH BID@0900,1800 [facility] Last Admin: 11/08/17 17:57 Dose: 40 mg Acetaminophen (Ofirmev Inj) 1,000 mg in 100 mls @ 400 mls/hr IV.SIG Q8H PRN PRN Reason: PAIN SCALE 1 TO 10 Metronidazole/Sodium Chloride (Flagyl 500 Mg Inj) 100 mls @ 100 mls/hr IV.SIG Q8H [facility] Last Admin: 11/09/17 06:17 Dose: 100 mls/hr Sodium Acetate 29.5 meq/Potassium Chloride 25 meq/Magnesium Chloride 5 meq/ Calcium Chloride 4.5 meq/Multivitamins 5 ml/ Folic Acid 0.5 mg/ Amino Acids/ Electrolytes/Dextrose 1,030.8219 mls @ 49.699 mls/hr IV.SIG Q24H [facility] Last Admin: 11/08/17 20:34 Dose: 49.7 mls/hr Ciprofloxacin/Dextrose (Cipro 400 Mg/200 Ml Inj) 400 mg in 200 mls @ 200 mls/ hr IV.SIG Q8H [facility] Labetalol HCl (Trandate Inj) 10 mg IV.PUSH Q1H PRN PRN Reason: SBP>160, DBP>90 Last Admin: 11/04/17 16:17 Dose: 10 mg Lactobacillus Acidophilus (Lactinex) 1 tab PO TID [facility] Last Admin: 11/08/17 17:57 Dose: Not Given Lactulose (Lactulose Liq) 30 ml PO DAILY PRN PRN Reason: SEVERE CONSITIPATION Miscellaneous (Pill Splitter) 1 each OTHER UNSCH PRN PRN Reason: SEE LABEL COMMENTS Ondansetron HCl (Zofran Odt) 4 mg PO Q6H PRN PRN Reason: NAUSEA OR VOMITING Last Admin: 11/02/17 00:20 Dose: 4 mg Patch Removal (Remove Old Patch) 1 each T-DERMAL Q7D [facility] Last Admin: 11/08/17 17:55 Dose: Not Given Potassium Chloride (K-Dur) 20 meq PO BID [facility] Last Admin: 11/08/17 21:00 Dose: Not Given Senna/Docusate Sodium (Juany-Colace) 1 tab PO BID [facility] Last Admin: 11/08/17 20:59 Dose: Not Given Sennosides (Senokot) 17.2 mg PO Q12H PRN PRN Reason: Moderate Constipation Simethicone (Phazyme Chew) 125 mg PO TID PRN PRN Reason: GAS RETENTION Sodium Chloride (Ns Flush) 2 ml IV.FLUSH BID [facility] Last Admin: 11/08/17 21:00 Dose: 2 ml Sodium Chloride (Ns Flush) 2 ml IV.FLUSH UNSCH PRN PRN Reason: FLUSH AFTER USING IV ACCESS Advance Directives Living Will: No Healthcare Surrogate: No Power of Rib Stiffener And Heel Dipper: No Power of Rib Stiffener And Heel Dipper Relationship to Patient: Family Physical Exam Vital Signs: Vital Signs - 24 hr 11/08/17 12:00 11/08/17 16:00 11/08/17 20:00 Temperature 96.7 F L 98.3 F 97.7 F Pulse Rate 129 H 122 H 112 H Respiratory Rate 18 18 18 Blood Pressure 167/82 H 167/80 H 160/103 H Pulse Oximetry 96 96 98 11/09/17 00:00 11/09/17 04:00 Temperature 98.2 F 98.9 F Pulse Rate 106 H 121 H Respiratory Rate 20 18 Blood Pressure 140/74 114/77 Pulse Oximetry 99 98 I&O: Intake & Output 11/07/17 11/08/17 11/09/17 11/10/17 06:59 06:59 06:59 06:59 Intake Total 1087.0719 / 1087.0719 1270.8219 / 1270.8219 100 / 100 Output Total 400 / 400 400 / 400 Balance 1087.0719 / 1087.0719 870.8219 / 870.8219 -300 / -300 Weight 57.2 kg 55.2 kg Physical Exam: CONSTITUTIONAL/GENERAL: This is an adequately nourished patient, in no apparent distress. TUBES/LINES/DRAINS: PIV, graff SKIN: No jaundice, rashes, or lesions. No wounds seen anteriorly. Skin temperature appropriate. Not diaphoretic. HEAD: Atraumatic. Normocephalic. EYES: PERRL. Extraocular motions intact. No scleral icterus. No injection or drainage. Fundi not examined. ENT: TRIBAL left side. Nose without bleeding or purulent drainage. Throat without visible erythema, lesions. NECK: Trachea midline. CARDIOVASCULAR: RRR without murmurs, gallops, or rubs. No JVD. Peripheral pulses symmetric. RESPIRATORY/CHEST: Symmetric, unlabored respirations. Clear to auscultation. Diminished. Breath sounds equal bilaterally. GASTROINTESTINAL: Abdomen soft, non-tender, nondistended. No hepato-splenomegaly , or palpable masses. No guarding. Bowel sounds present. GENITOURINARY: Without palpable bladder distension. Graff catheter in place. MUSCULOSKELETAL: Extremities without clubbing, cyanosis, or edema. No joint tenderness NEUROLOGICAL: Awake. Cooperative. mildly confused. Decreased strength RUE, RLE. +dysarthria + mild aphasia PSYCHIATRIC: No obvious anxiety/depression. no apparent hallucinations or other psychotic thought process. Diagnostic Tests Laboratory: Laboratory Results - last 72 hr 11/07/17 11/07/17 11/07/17 02:00 09:06 09:06 WBC 19.6 H RBC 5.12 Hgb 15.9 H Hct 47.9 H MCV 93.6 MCH 31.2 MCHC 33.3 RDW 14.6 Plt Count 260 MPV 8.6 Neut % (Auto) 87.8 H Lymph % (Auto) 4.4 L Bergen % (Auto) 7.5 Eos % (Auto) 0.1 Baso % (Auto) 0.2 Neut # (Auto) 17.2 H Lymph # (Auto) 0.9 L Bergen # (Auto) 1.5 H Eos # (Auto) 0.0 Baso # (Auto) 0.0 WBC Differential . Differential Comment Auto diff final Hematology Comments Sodium 155 H Potassium 2.9 L* Chloride 118 H Carbon Dioxide 24.4 Anion Gap 13 BUN 72 H Creatinine 1.37 H Estimated GFR 37 L Random Glucose 121 H Calcium 8.6 Total Bilirubin 0.7 AST 49 H ALT 40 Alkaline Phosphatase 82 Total Protein 5.5 L Albumin 1.8 L Stl C.difficile Tox PCR Negative St C. diff Tox Epid 027 Negative Result Diagrams: 11/09/17 13:44 11/10/17 06:46 Imaging: ITS Impressions Neck CTA 10/31/17 09:22 CONCLUSION: 1. Significant atherosclerotic plaquing involving the aorta and origin of bilateral internal carotid arteries with soft plaque involving the origin of the left internal coronary artery and no significant stenosis. Abdomen/Bladder Ultrasound 11/02/17 00:00 CONCLUSION: 1. Small lobular kidneys with cortical thinning. 2. . Large left effusion. Head MRI 11/03/17 00:00 CONCLUSION: Continued evolution of the bilateral infarcts most prominent in the posterior right temporal lobe with small volume hemorrhage. There is no significant mass effect. No acute infarct is identified. Chest X-Ray 11/04/17 06:00 CONCLUSION: 1. Increasing opacity in the right lung which may represent posterior layering effusion. 2. Stable hazy opacity in the left lung. 3. The findings remain most characteristic of congestive heart failure. Abdomen X-Ray 11/04/17 13:16 CONCLUSION: Nonspecific bowel gas pattern with mild gaseous distention noted. Abdomen/Pelvis CT 11/04/17 14:42 CONCLUSION: 1. Mild mural thickening of the left colon most characteristic of a mild colitis. 2. Diffuse ileus of small and proximal large bowel. 3. Mild ascites. Moderate pleural effusions. Moderate anasarca. 4. Cardiomegaly with moderate coronary calcifications. 5. Numerous tiny hepatic cysts with periportal edema in the liver. Head CT 11/08/17 00:00 CONCLUSION: 1. Stable partially hemorrhagic infarct in the right parieto-occipital region. . Patient/Family Conference Present at Family Conference: pt, grandson Family Conference Location: Telephone Issues Discussed: spoke with pt. Her communication is hampered by some aphasia, slurring. * Palliative care role, purpose, approach * briefly discussed Additional psychosocial, and spiritual history * briefly reviewed Patients general health, functional status in the months leading up to the current hospitalization * Patients goals of care - "I want real water," "I want to go home, then to rehab." gently explained that rehab generally needs to happen before going home. * briefly reviewed code status * Current medical treatment options and benefits/burdens of those options Spoke with pt's grandson on phone: * Palliative care role, purpose, approach * brief review Additional medical, psychosocial history * Patients general health, functional status, and cognitive changes in the months leading up to the current hospitalization * brief review family understanding of the current medical problems * brief review family understanding of prognosis * Current medical treatment options and benefits/burdens of those options * Likely scenarios comparing ongoing aggressive care with transition to hospice * Questions answered to the best of my ability * Palliative care contact information provided Bedside conference with pt's daughter Emiliano -Palliative care role, purpose, approach -Additional medical, psychosocial, and spiritual history -Patients general health, function, cognition in the months before current hospitalization -family understanding of the current medical problems - family understanding of prognosis -Patients goals of care as best understood from conversations -Current medical treatment options and their benefits/burdens -Likely scenarios comparing ongoing aggressive care with transition to ``comfort -measures only specifically placement with rehab vs care facility and hospice -Legal decision makers - proxy decision maker is jennie Cummings - CODE STATUS - pt elected DNR -Questions answered to the best of my ability - Palliative care contact information provided Pt's expressing desire to "go home" and be able to "drink real water." Proxy Emiliano would like to "try rehab" but not "aggressive rehab, I don't think she's up to that." Emiliano was receptive to discussion about hospice but is not ready for hospice. Assessment and Plan - Symptom Scale (1) Pain 0-10 Scale: Unable to quantify (2) Debility 0-10 Scale: Unable to quantify (3) Agitation 0-10 Scale: Unable to quantify Pertinent Non-Medical Issues: Psychosocial: . 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 Originally from [place], has been dividing time bet [place] and [place] for 50 years. Has 1 daughter and a grandson who are local. Spiritual: Bahai. Daughter requests malted milk mixer visit. Legal: Pt not capacitated to make healthcare decisions. Per [place] statutes medical decision making falls to daughter Emiliano as proxy. Ethical issues impacting care: none identified Important Contacts: Grandchild Alex Greenfield [phone] Daughter and proxy Emiliano Greenfield [phone] Prognosis: This is an 87 yo woman with hx AF, CHF, who was independent prior to this hospitalization. She presented after sudden onset slurred speech, headache, right side weakness. SHe was found to have left MCA CVA, right parietal subacute CVA. Echo showed moderate to severe tricuspid valve regurg and pulmonary HTN. She suffered ileus this hospitalization which is improving. She is currently unable to move her RUE and her RLE is weak. She has dysphagia , is on pureed diet with honey thickened liquids. She has some confusion and agitation which is new since CVA. It is unclear if her deficits will improve or if this is her new baseline. She remains at high risk of further complications, setbacks, and decline, especially given her underlying CHF. Code Status: No Code DNR Plan: - LEGAL DECISON MAKER - Pt is not capacitated to make medical decisions. IN the absence of HCS designation, per [place] statutes pt's daughter Emiliano is proxy decision maker. - CODE STATUS- no code DNR - GOALS -Pt's expressing desire to "go home" and be able to "drink real water." Proxy Emiliano would like to "try rehab" but not "aggressive rehab, I don't think she's up to that." Emiliano was receptive to discussion about hospice but is not ready for hospice. - SYMPTOMS - * debility - 2/2 CVA, now with right side weakness- does not move RUE, RLE strengh decreased. prior was independent with ADLs. failed swallow eval initially, now on pureed diet with honey thick liquids. neuro recommending rehab, appears pt accepted to [facility] but daughter unsure if that is too aggressive. Daughter considering other rehabs. She was not ready to consider hospice. Has PT, OT, COFFEE BREAK ATTENDANT following. * pain - multifactorial - 2/2 GI upset, lines. has improving ileus, poss colitis. Has had loose stools but refused GI workup. Asking for tylenol, says her abd is painful and on auscultation left lung she expresses discomfort from pressure of stethoscope. abd mildly distended, nontender. otherwise appears comfortable. On abx for colitis. has PRn ofrimev, PRN apa 650mg. Royce ASA. PRN apap not given recently. * agitation - pt with recent episodes mild agitation, refusing meds, throwing food and water. 2/2 CVA. 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 NOw in BUE restraints, per attending is calmer than yesterday. On my eval she is calm. Could consider PRN ativan q6h 0.5 mg mild anxiety; 1 mg moderate to severe anxiety. - pending d/c to rehab - Palliative care will continue to follow during hospital course as condition evolves, to assist patient/decision-maker with understanding of medical conditions, weighing benefits/burdens of treatment options, for clarification of goals of treatment. Additionally will assist with any symptoms of palliative concern Appreciation Thank you for the opportunity to participate in the care of Stacy Davies. Attestation Collaborating MD Comments: Chart reviewed. Case discussed with palliative care [employer]. Above [employer] note reviewed and I concur.
[2017-11-09] MEDS ORDERED: Potassium Bicarbonate 25 MEQ Effervescent Tablet PO ONE (11:00)
--- NOTE | 2017-11-09 12:35 | P.DS ---
Date of admission: 10/31/17 10:59 Primary care physician: UNKNOWN Brief History from admission: This otherwise healthy 87-year-old woman developed difficulty with speech and a weak right side while eating breakfast this morning. She was brought to the emergency department where she ruled in as a stroke alert and after evaluation by Dr. Lozoya from neurology she received TPA. In the emergency department her right sided deficit was quite dense and her speech difficulties were pronounced. Both difficulties improved modestly at first and at that point she has been transported to the [facility]. Blood pressure control has been obtained with intravenous Cardene infusion. She developed some gastric retching and a worse headache, MRI and repeat CT indicate an area of possible bleeding posteriorly in the parietal region however the woman remains clearly improved from prior to the TPA. 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 She has a good sense of humor and asks appropriate questions. She can raise her right arm above gravity but the hand grasp remains weak. The patient has expressed quite clearly to me that she would not want any therapy that would involve ventilators or surgery. Although she is doing well at this time she would like us to continue full care but she prefers to be DNR status. DS: Diagnosis - Discharge Diagnosis (1) Agitation Status: Acute (2) CVA (cerebral vascular accident) Status: Acute (3) Debility Status: Acute (4) Diarrhea Status: Acute (5) Ileus Status: Acute (6) Pain Status: Acute (7) Pulmonary hypertension Status: Acute (8) Tricuspid regurgitation Status: Acute DS: Medications - Discharge Medications Prescriptions: ciprofloxacin HCl [Cipro] 500 mg PO Q12H #14 tab folic acid 0.5 mg IV Q24H #30 ml Lactobacillus acidoph-L.bulgar [Lactinex] 1 tab PO DAILY #30 tab metronidazole 500 mg PO TID #21 tab DS: Summary Hospital Course: GI: With abdominal pain and distention. History of stomach ulcers per patient and family Mild colitis questionable if ischemic colitis Diffuse ileus of small and proximal large bowel Hypokalemia. Monitor and replace . Give IV as patient is NPO KUB shows gas no other abnormality. CT with and without contrast abdomen reviewed; 1. Mild mural thickening of the left colon most characteristic of a mild colitis. 2. Diffuse ileus of small and proximal large bowel. 3. Mild ascites. Moderate pleural effusions. Moderate anasarca. 4. Cardiomegaly with moderate coronary calcifications. 5. Numerous tiny hepatic cysts with periportal edema in the liver. Also consulted GI appreciate recommendations C diff is neg Stool studies Started on IV antibiotics Flagyl and Levaquin, however patient has been refusing , also refusing IV site. Patient is however more confused 11/08. Also noted more lethargic , agitated on/off, placed on restraints. CT head w/o contrast stat reviewed and shows stable hematoma, no midline shift. Patient is placed on restraints , currently she is off restraints. Needs IV line, administer abx and KCl supplemet by IV as needed. Currently she is taking by mouth supplement. Discontinue Levaquin and start ciprofloxacin instead. Continue Flagyl. Will have ciprofloxacin and Flagyl at discharge. Neuro is ff on case. Patient She is not with hallucinations anymore. Also consult psych although changes might be related to stroke, infectious. Will discontinue psych consult. Discussed with psychiatry the patient and family. Patient refusing endoscopic procedures PPIs Also consult palliative care With more diarrhea sent for C diff and stool studies. Cont abx . C diff is neg Neuro/Psych: Left MCA CVA/right parietal CVA subacute MRI brain on admission revealed changes in the right frontal/posterior parietal right parietal regions possibly subacute ischemia. CTA head and neck showed atherosclerotic vessels with no significant stenosis CT brain 11/01 shows infarct and residual secondary hemorrhage along posterior parietal occipital mid convexities a Followed by Dr. Lozoya/neurology Continue aspirin 3 mg per rectum daily Start lipid lowering agent when able to swallow. Status post alteplase CV: Hypertensive emergency Home medications verapamil unknown dosage daily. Off nicardipine infusion Labetalol 10 mg IV every 2 hours as needed Troponin 0 0.08 on admission. Started on Catapres patch 0.2 mg weekly on 10/31 BP is better controlled. Resp: Acute hypoxic insufficiency Nasal cannula per stroke protocol. Currently on 2 L Incentive spirometry while awake Follow-up chest x-ray in a.m. GI: Hypoalbuminemia Failed swallow evaluation. Refuses Dobbhoff or NG tube. Daughter at bedside Started PPN at 50 cc an hour. Dulcolax suppository daily for bowel regimen Famotidine 20 mg daily for GI prophylaxis : No Ye catheter Endo: Sliding scale insulin to maintain euglycemia. Renal: Acute kidney injury Received 1 dose of furosemide Currently on normal saline 84-DC while PPN going Heme: Leukocytosis Monitor CBC daily. Follow trends. Check UA again ID: Monitor for signs and symptomatology infection CBC MSK: PT/OT evaluate and treat FEN: Hyponatremia Replace electrolytes as clinically indicated Access -Utilize peripheral IV. Central line if indicated Prophylaxis -GI -famotidine -DVT -SCD/holding pharmacological prophylaxis status post intracranial hemorrhage Code Status: DNR Discussed with the patient, family at bedside, nurse, GI, palliative care, psychiatry 8 more confused and also with hallucinations. Refusing labs, meds. CT head no change, consult psych. Placed on restraints , IV established and to receive IV abx, KCl supplement as with persistent hypokalemia. Not eatign low K , still with diarrhea on /off Also consult palliative care , family is considering hospice 11/09 less confused she is not agitated anymore off restraints. Agrees to take potassium supplement. Appears improving. Levaquin discontinued and changed to ciprofloxacin as might contribute to patient confusion. 8 More awake and alert. Lytes better controlle.d Patient received potassium bicarbonate Patient is eager to leave the hospital and to go to rehab, her goal is to go home. Howeevr the patient is with poor prognosis, expect deterioration and readmission to the hospital. Palliative care consulted for goals of care . Patientis DNTR however wants to go to snf . To consider hospice evaluation in SNF if continues to deteriorate. Family at bedside. Patient is DC to SNF in stable condition expect deterioration To follow up as OP with PCP and consultants - Time Spent with Patient Total time spent providing and/or coordinating discharge services: Greater than 30 minutes - Quality: Stroke Last date observed well: 10/31/17 Last time observed well: 08:45 - Quality: VTE Deep Vein Thrombosis/Pulmonary Embolism Present on Admission: No Exam Vital signs: Vital Signs 11/08/17 16:00 11/08/17 20:00 11/09/17 00:00 Temperature 98.3 F 97.7 F 98.2 F Pulse Rate 122 H 112 H 106 H Respiratory Rate 18 18 20 Blood Pressure 167/80 H 160/103 H 140/74 Pulse Oximetry 96 98 99 11/09/17 04:00 Temperature 98.9 F Pulse Rate 121 H Respiratory Rate 18 Blood Pressure 114/77 Pulse Oximetry 98 Intake & Output 11/08/17 11/09/17 11/09/17 18:59 06:59 18:59 Intake Total 0 / 0 100 / 100 Output Total 400 / 400 Balance -400 / -400 100 / 100 Weight 55.2 kg Intake: IV 100 / 100 Flagyl 500 MG Inj 100 ML @ 100 100 / 100 mls/hr IV.SIG Q8H ARTUR Rx#: [id number] Water Bolus Amount 0 / 0 Output: Urine 400 / 400 Other: # Voids 2 # Incontinent Voids 2 # Urine Diapers 0 Date of Last Bowel Movement 11/08/17 11/08/17 11/09/17 # Bowel Movements 2 1 # Incontinent Bowel Movements 3 Narrative: General appearance: Elderly female, less agitated. Off restraints Head: Atraumatic and normocephalic. Lungs: Clear bilaterally. No wheezes or crackles. Heart: Irregular regular rhythm rate controlled, no jugular venous distention. Abdomen: Decreased bowel sounds, abdomen is less distended, diffusely tender to palpation. Extremities: Warm, well-perfused Neuro: Right arm remains with 1/5 power and right leg considerably 2-3/5. Discoordination right upper extremity. Right facial droop improved. Expressive aphasia the same. Alert. Results Procedures completed during hospitalization: no procedures Labs on day of discharge: Labs from last 24 hours 11/09/17 11/09/17 05:27 05:27 WBC Pending RBC Pending Hgb Pending Hct Pending Plt Count Pending WBC Differential Pending Differential Comment Pending Sodium Pending Potassium Pending Chloride Pending Carbon Dioxide Pending Anion Gap Pending BUN Pending Creatinine Pending Random Glucose Pending Calcium Pending Phosphorus Pending Magnesium Pending Total Bilirubin Pending AST Pending ALT Pending Alkaline Phosphatase Pending Total Protein Pending Albumin Pending - Impressions ITS Impressions Neck CTA 10/31/17 09:22 CONCLUSION: 1. Significant atherosclerotic plaquing involving the aorta and origin of bilateral internal carotid arteries with soft plaque involving the origin of the left internal coronary artery and no significant stenosis. Abdomen/Bladder Ultrasound 11/02/17 00:00 CONCLUSION: 1. Small lobular kidneys with cortical thinning. 2. . Large left effusion. Head MRI 11/03/17 00:00 CONCLUSION: Continued evolution of the bilateral infarcts most prominent in the posterior right temporal lobe with small volume hemorrhage. There is no significant mass effect. No acute infarct is identified. Chest X-Ray 11/04/17 06:00 CONCLUSION: 1. Increasing opacity in the right lung which may represent posterior layering effusion. 2. Stable hazy opacity in the left lung. 3. The findings remain most characteristic of congestive heart failure. Abdomen X-Ray 11/04/17 13:16 CONCLUSION: Nonspecific bowel gas pattern with mild gaseous distention noted. Abdomen/Pelvis CT 11/04/17 14:42 CONCLUSION: 1. Mild mural thickening of the left colon most characteristic of a mild colitis. 2. Diffuse ileus of small and proximal large bowel. 3. Mild ascites. Moderate pleural effusions. Moderate anasarca. 4. Cardiomegaly with moderate coronary calcifications. 5. Numerous tiny hepatic cysts with periportal edema in the liver. Head CT 11/08/17 00:00 CONCLUSION: 1. Stable partially hemorrhagic infarct in the right parieto-occipital region. . Discharge Plan - Discharge Disposition Patient Disposition: 63 Rehab Inpatient - Discharge Condition Condition: Critical - Discharge Order Discharge Orders: Discharge Order (Routine); Ordered 11/10/17 Ordered By: Jessica Mayes - Discharge Details Anticipated Discharge Date: 11/09/17 - Physicians Team Primary Care Provider: UNKNOWN, Attending Provider: Jessica Mayes Other Providers: Jazmine Christy MD
[2017-11-09 14:31] LABS: Hematocrit 46.6 % (35.0-46.0); Hemoglobin 14.6 gm/dL (11.6-15.3); Mean Corpuscular HGB Conc 31.4 % (32.0-36.0); Mean Corpuscular Volume 95.6 fL (80.0-100.0); Platelet Count 280 th/mm3 (150-450); Red Blood Count 4.87 mil/mm3 (4.00-5.30); Red Cell Distribution Width 14.9 % (11.6-17.2)
[2017-11-09 15:00] LABS: Alanine Aminotransferase 28 U/L (10-53); Albumin 1.8 g/dL (3.4-5.0); Alkaline Phosphatase 73 U/L (45-117); Anion Gap 7 meq/L (5-15); Aspartate Aminotransferase 32 U/L (15-37); Blood Urea Nitrogen 47 mg/dL (7-18); Calcium 8.2 mg/dL (8.5-10.1); Carbon Dioxide 31.1 meq/L (21.0-32.0); Chloride 122 meq/L (98-107); Glomerular Filtration Rate 41 mL/min (>89); Glucose,Random 123 mg/dL (74-106); Magnesium 2.5 mg/dL (1.5-2.5); Phosphorus 1.5 mg/dL (2.5-4.9); Total Protein 4.8 g/dL (6.4-8.2)
[2017-11-09 15:05] LABS: Potassium 2.6 meq/L (3.5-5.1); Sodium 160 meq/L (136-145)
[2017-11-09 15:30] LABS: Lymphocytes 5 % (9-44); Monocytes 2 % (0-8); Platelet Estimate Normal (Normal); Platelet Morphology Normal (Normal); RBC Morphology Normal (Normal)
--- NOTE | 2017-11-09 15:37 | P.DIET ---
Nutritional Evaluation Type of nutrition evaluation: follow-up Nutrition consult regarding: TPN/PPN Objective - Diagnosis Stroke Alert/TPA - Objective % IBW: 90 (IBW = 135#) Body Weight Used for Calculations: Actual (63.8 kg) Energy Needs - Lower Range (kCal/kg): 25 Energy Needs - Upper Range (kCal/kg): 30 Lower Limit kCal/kg (kCals): 1,595 Upper Limit kCal/kg (kCals): 1,914 Lower Limit Protein Factor (Grams per Kg): 1.0 Upper Limit Protein Factor (Grams per Kg): 1.3 Lower Protein Needs (Protein): 64 Upper Protein Needs (Protein): 83 Fluid Factor (ml/kg): 30 Estimated Fluid Needs (ml): 1,914 Dietitian Reviewed in Medical Record: Current diet, Curent medications, Intake & Output, Labs, Medical history, TPN/PPN Diet Order: Heart Healthy, Pureed, Honey Thick Liquids Oral Diet Intake Amount: Poor <50% Objective Comments: Meds: Lasix, Lactinex Labs: Na 179, K 2.6, BUN 47, trailer driver 1.25, eGFR 41, A1C 4.9, Gluc 123 LBM 11/09 Feeding - Current TPN/PPN Current PPN: Clinimix 4.25/5 (Renal Formula) Current TPN/PPN Rate (ml/hr): 50 Amino Acid and Dextrose Current kCals Provided: 408 Amino Acid and Dextrose Current Protein Provided: 51 Current TPN/PPN/Lipids Comments: No lipids ordered. Lipids are recommended when giving PPN. Assessment Assessment: Pt remains on PPN as described above. PPN was initiated on 11/03 and no lipids were ever ordered/given. When administering PPN, it is recommended to run lipids. Pt had originally refused Dobhoff tube for enteral feedings. Pt has now advanced to a Heart Healthy, Pureed diet w/ Honey Thick liquids. I would actually recommend stopping the PPN as pt has no indications of needing it other than the fact that she is not eating well. If PPN is continued, pt requires lipid infusion. Recommend Clinimix E 4.25/5 @ 63mls/hr with 20% IV lipids @ 10mls/hr x 24hrs only if necessary to continue PPN. Also recommend updated TG level if continuing PPN. This would provide the pt w/ 1010kcals (w/ lipids), 64g PRO, and 1500mls fluid. Will add Enlive TID to trays. Recommend a multivitamin/mineral daily when PPN stopped. Dietitian following. Recommendations: 1. Recommend D/Cing PPN as pt has no indication of needing it, despite her poor PO intake. 2. Will add Enlive TID to trays. 3. Recommend daily multivitamin/mineral daily. 4. ONLY if needed, PPN: Clinimix E 4.25/5 @ 63mls/hr w/ 20% IV lipids @ 10mls/ hr x 24hrs. Dietitian to Monitor: Lab values, Supplement acceptance, Intake & Output, Diet tolerance, Weight change, PO Intake, Swallow recommendations, Medical course
[2017-11-09] MEDS: Famotidine PF Inj 20 MG/2 ML Vial IV.PUSH SCH (17:42)
[2017-11-09] MEDS: POTASSIUM CHLORIDE IV.SIG SCH ×7 (21:23)
[2017-11-09] MEDS: [UNRECOGNIZED DRUG - OTHER] IV.SIG SCH ×7 (21:23)
[2017-11-09] MEDS: SODIUM ACETATE IV.SIG SCH ×7 (21:23)
[2017-11-09] MEDS ORDERED: Potassium Chloride 25 MEQ Effervescent Tablet PO ONE (22:02)
[2017-11-10] MEDS: Ciprofloxacin 400 MG/200 ML 400 MG/200 ML PIGGYBACK IV.SIG SCH ×2 (02:17→10:14)
[2017-11-10] MEDS: Senna/Docusate Sodium 8.6/50 MG Tablet PO SCH ×2 (05:10→08:26)
[2017-11-10] MEDS: Aspirin 325 MG Tablet PO SCH (08:25)
[2017-11-10] MEDS: Lactobacillus Acidophilus/L. Spores Tablet PO SCH (08:25)
[2017-11-10] MEDS: Atenolol 25 MG Tablet PO SCH (08:26)
[2017-11-10 08:42] LABS: Alanine Aminotransferase 25 U/L (10-53); Albumin 1.6 g/dL (3.4-5.0); Alkaline Phosphatase 67 U/L (45-117); Anion Gap 7 meq/L (5-15); Aspartate Aminotransferase 34 U/L (15-37); Blood Urea Nitrogen 47 mg/dL (7-18); Calcium 8.2 mg/dL (8.5-10.1); Carbon Dioxide 25.9 meq/L (21.0-32.0); Chloride 124 meq/L (98-107); Glomerular Filtration Rate 44 mL/min (>89); Glucose,Random 112 mg/dL (74-106); Total Protein 4.7 g/dL (6.4-8.2)
[2017-11-10 08:55] LABS: Sodium 157 meq/L (136-145)
[2017-11-10] MEDS ORDERED: Potassium Bicarbonate 25 MEQ Effervescent Tablet PO SCH (09:00)
[2017-11-10] MEDS ORDERED: Potassium Bicarbonate 25 MEQ Effervescent Tablet PO ONE (09:04)
[2017-11-10] MEDS ORDERED: KCL 20 mEq/NACL 0.45% Inj 1,000 ML IV.CONT SCH (09:15)
--- NOTE | 2017-11-10 12:13 | P.PNPAL ---
Reason for Visit Reason for visit: a. To assist with evaluation and management of symptoms including: pain, debility, agitation b. To assist medical decision maker(s) with: better understanding of current medical conditions; weighing benefits/burdens of medical treatment options; making medical treatment decisions. Subjective Subjective/Interval History: Pt sitting up in bed. Daughter and Grandson at bedside. Pt expressing frustration that she has not yet been discharged to rehab. SHe is eager to go. Today has potassium 3.0, Na 157, wbc 19.0. Afebrile. Pending IV potassium. RN reports she continues to refuse meds. Pt constantly asking for water to drink. Pt had sat 91% this morning, was given o2 2L via NC but she is not wearing this on my eval. She does not appear dyspneic, denies SOB. Pt denies pain but seems somewhat tender on abd palpation and is trying to move my hand. PT notes that she is able to get OOB and ambulate with assistance, has difficulty grasping handrails. She is able to move her right arm but cannot grasp. Pending d/c to [facility]. Family/Friend Interactions: Brief discussion with both pt's daughter Emiliano and Grandson Robert. They are intent on sending pt to rehab in the hopes that she can come home after. Gently addressed that she may end up staying at facility. They verbalize understanding and reiterate that they want her to go try rehab. Objective Vital Signs: Vital Signs 11/09/17 12:00 11/09/17 14:31 11/09/17 16:00 Temperature 97.6 F 97.5 F L Pulse Rate 98 H 102 H Respiratory Rate 18 18 Blood Pressure 144/79 H 136/84 Pulse Oximetry 98 94 L 98 11/09/17 21:00 11/10/17 02:07 11/10/17 05:30 Temperature 98 F 97.6 F 98.2 F Pulse Rate 107 H 101 H 105 H Respiratory Rate 19 20 19 Blood Pressure 140/86 133/82 129/80 Pulse Oximetry 99 98 96 11/10/17 08:00 11/10/17 11:09 Temperature 97.5 F L Pulse Rate 109 H Respiratory Rate 20 Blood Pressure 146/76 H Pulse Oximetry 93 L 91 L Intake & Output 11/09/17 11/10/17 11/10/17 18:59 06:59 18:59 Intake Total 2110.8219 / 2110.8219 400 / 400 Output Total 3 / 3 Balance 2110.8219 / 2110.8219 400 / 400 -3 / -3 Weight 55.2 kg Intake: IV 1630.8219 / 1630.8219 300 / 300 Cipro 400 MG/200 ML Inj 400 mg 400 / 400 200 / 200 In 200 ml @ 200 mls/hr IV.SIG Q8H ROYCE Rx#:[id number] Sodium Acetate Inj 29.5 MEQ KCl 1030.8219 / 1030.8219 Inj 25 MEQ Magnesium Chloride Inj 5 MEQ Calcium Chloride Inj 4.5 MEQ MVI-12 Inj 5 ML Folvite Inj 0.5 MG In TPN Fluid 2 Liter 1,000 ML @ 49.699 mls/hr IV.SIG Q24H ROYCE Rx#:[id number] Flagyl 500 MG Inj 100 ML @ 100 200 / 200 100 / 100 mls/hr IV.SIG Q8H ROYCE Rx#: [id number] Oral 480 / 480 100 / 100 Output: Urine 2 / 2 Stool Other: # Voids 2 2 Date of Last Bowel Movement 11/09/17 11/08/17 11/10/17 # Bowel Movements 2 0 Physical Exam: CONSTITUTIONAL/GENERAL: This is an adequately nourished patient, in no apparent distress. SKIN: No jaundice, rashes, or lesions. No wounds seen anteriorly. Skin temperature appropriate. Not diaphoretic. HEAD: Atraumatic. Normocephalic. EYES: PERRL. Extraocular motions intact. No scleral icterus. No injection or drainage. Fundi not examined. ENT: [employer] left side. Nose without bleeding or purulent drainage. White plaques pharynx, tongue, buccal mucosa CARDIOVASCULAR: tachycardic without murmurs, gallops, or rubs. RESPIRATORY/CHEST: Symmetric, unlabored respirations. Clear to auscultation. Diminished. Breath sounds equal bilaterally. GASTROINTESTINAL: Abdomen soft, mildly distended. No hepato-splenomegaly, or palpable masses. + guarding. Bowel sounds present. GENITOURINARY: Without palpable bladder distension. Ye catheter in place. MUSCULOSKELETAL: Extremities without clubbing, cyanosis, or edema. No joint tenderness NEUROLOGICAL: Awake. Cooperative. mildly confused. Decreased strength RUE, RLE. +dysarthria + mild aphasia PSYCHIATRIC: No obvious anxiety/depression. no apparent hallucinations or other psychotic thought process. Diagnostic Tests Laboratory: Laboratory Results - last 72 hr 11/09/17 11/09/17 11/10/17 13:44 13:44 06:46 WBC 19.0 H RBC 4.87 Hgb 14.6 Hct 46.6 H MCV 95.6 MCH 30.0 MCHC 31.4 L RDW 14.9 Plt Count 280 MPV 9.0 Prelim Diff (Auto) Manual diff required WBC Differential Manual diff final Seg Neuts % (Manual) 80 H Band Neuts % (Manual) 13 H Lymphocytes % (Manual) 5 L Monocytes % (Manual) 2 Abs Neuts (Manual) 17.7 H Differential Comment . Platelet Estimate Normal Platelet Morphology Normal RBC Morphology Normal Sodium 160 H* 157 H* Potassium 2.6 L* 3.0 L Chloride 122 H 124 H Carbon Dioxide 31.1 25.9 Anion Gap 7 7 BUN 47 H 47 H Creatinine 1.25 H 1.16 H Estimated GFR 41 L 44 L Random Glucose 123 H 112 H Calcium 8.2 L 8.2 L Phosphorus 1.5 L Magnesium 2.5 Total Bilirubin 0.5 0.4 AST 32 34 ALT 28 25 Alkaline Phosphatase 73 67 Total Protein 4.8 L D 4.7 L Albumin 1.8 L 1.6 L Result Diagrams: 11/09/17 13:44 11/10/17 06:46 Imaging: ITS Impressions Neck CTA 10/31/17 09:22 CONCLUSION: 1. Significant atherosclerotic plaquing involving the aorta and origin of bilateral internal carotid arteries with soft plaque involving the origin of the left internal coronary artery and no significant stenosis. Abdomen/Bladder Ultrasound 11/02/17 00:00 CONCLUSION: 1. Small lobular kidneys with cortical thinning. 2. . Large left effusion. Head MRI 11/03/17 00:00 CONCLUSION: Continued evolution of the bilateral infarcts most prominent in the posterior right temporal lobe with small volume hemorrhage. There is no significant mass effect. No acute infarct is identified. Chest X-Ray 11/04/17 06:00 CONCLUSION: 1. Increasing opacity in the right lung which may represent posterior layering effusion. 2. Stable hazy opacity in the left lung. 3. The findings remain most characteristic of congestive heart failure. Abdomen X-Ray 11/04/17 13:16 CONCLUSION: Nonspecific bowel gas pattern with mild gaseous distention noted. Abdomen/Pelvis CT 11/04/17 14:42 CONCLUSION: 1. Mild mural thickening of the left colon most characteristic of a mild colitis. 2. Diffuse ileus of small and proximal large bowel. 3. Mild ascites. Moderate pleural effusions. Moderate anasarca. 4. Cardiomegaly with moderate coronary calcifications. 5. Numerous tiny hepatic cysts with periportal edema in the liver. Head CT 11/08/17 00:00 CONCLUSION: 1. Stable partially hemorrhagic infarct in the right parieto-occipital region. . Assessment and Plan - Disease Oriented Problem List (1) CVA (cerebral vascular accident) (2) Diarrhea (3) Pulmonary hypertension (4) Tricuspid regurgitation (5) Ileus Pertinent Non-Medical Issues: Psychosocial: . 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 Originally from [place], has been dividing time bet [place] and [place] for 50 years. Has 1 daughter and a grandson who are local. Spiritual: Adventism. Daughter requests grain elevator motor starter visit. Legal: Pt not capacitated to make healthcare decisions. Per [place] statutes medical decision making falls to daughter Emiliano as proxy. Ethical issues impacting care: none identified Important Contacts: Grandchild Alex Greenfield [phone] Daughter and proxy Emiliano Greenfield [phone] Prognosis: This is an 87 yo woman with hx AF, CHF, who was independent prior to this hospitalization. She presented after sudden onset slurred speech, headache, right side weakness. SHe was found to have left MCA CVA, right parietal subacute CVA. Echo showed moderate to severe tricuspid valve regurg and pulmonary HTN. She suffered ileus this hospitalization which is improving. She has dysphagia, is on pureed diet with honey thickened liquids. She has some confusion and agitation which is new since CVA. It is unclear if her deficits will improve or if this is her new baseline; regardless even with improvement it is unlikely she will improve to her former baseline. She remains at high risk of further complications, setbacks, and decline. Code Status: No Code DNR Plan: - LEGAL DECISON MAKER - Pt is not capacitated to make medical decisions. IN the absence of HCS designation, per [place] statutes pt's daughter Emiliano is proxy decision maker. - CODE STATUS- no code DNR - GOALS -Pt's expressing desire to "go home" and be able to "drink real water." Proxy Emiliano & her son are intent on having pt go to rehab in the hopes she will come home eventually. Emiliano was receptive to discussion about hospice but is not ready for hospice. - SYMPTOMS - * debility - 2/2 CVA, now with right side weakness- does not move RUE, RLE strengh decreased. prior was independent with ADLs. failed swallow eval initially, now on pureed diet with honey thick liquids. neuro recommending rehab, appears pt accepted to [facility] but daughter unsure if that is too aggressive. Daughter considering other rehabs. She was not ready to consider hospice. Has PT, OT, DRIVER/REFUSE COLLECTOR following. * pain - multifactorial - 2/2 GI upset, lines, mouth sores/plagues- ?jc. has improving ileus, poss colitis. Has had loose stools but refused GI workup. abd mildly distended, somewhat tender. family reports she's complaining of mouth pain, has white patches on exam. On abx for colitis. has PRn ofrimev, PRN apa 650mg. Royce ASA. Recommend magic mouthwash with supervision. * agitation - pt with recent episodes mild agitation, refusing meds, throwing food and water. 2/2 CVA. 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 Calm on my eval today. Could consider PRN ativan q6h 0.5 mg mild anxiety; 1 mg moderate to severe anxiety. - pending d/c to [facility] after correction electrolyte imbalances - Palliative care will continue to follow during hospital course as condition evolves, to assist patient/decision-maker with understanding of medical conditions, weighing benefits/burdens of treatment options, for clarification of goals of treatment. Additionally will assist with any symptoms of palliative concern Attestation Attestation: To help prompt me to consider important information that might be impacting today's encounter and assessment, information from prior notes written by myself or my colleagues may have been "brought forward" into today's note. My signature on this note, however, is an attestation that I personally performed the exam, history, and/or decision-making noted today, and, unless otherwise indicated, the interactions with patient, family, and staff as well as the review of records all occurred today. I also attest that the listed assessment and stated plan reflect my best clinical judgment today based on the combination of historical information, prior notes, and today's exam/ interactions. When time spent is documented, it refers only to time spent today by the signer, or if indicated, combined time spent today by collaborating physician/nurse practitioner.
[2017-11-10] MEDS ORDERED: Potassium Chlor 20 mEq Premix 20 MEQ/100 ML PIGGYBACK IV.SIG SCH (12:19)
[2017-11-10] MEDS ORDERED: Potassium Chlor 10 mEq Premix 10 MEQ/100 ML PIGGYBACK IV.SIG SCH (15:00)
== END 2017-11-10 14:20 ==
LOC: NEPC 09:19 → NEDA 10:59 → N03 12:03 → N05 11-06 15:40
PROVIDERS: ADMIT Hospitalist; ATTEND Hospitalist